=== PATIENT | female | born 1930 | race Caucasian/White ===

== ENCOUNTER 2019-05-14 13:23 | Inpatient (IN) | payer MEDICARE ==
[~2019-05-14] VITALS: Ht 162.6 cm; Wt 73.2 kg
[2019-05-14] MEDS: ASPIRIN 81 MG CHEW TABLET PO SCH (09:00)
[2019-05-14] MEDS ORDERED: METO1TAB87 PO (13:44)
[2019-05-14] MEDS ORDERED: DICL50TAB PO (13:44)
[2019-05-14] MEDS ORDERED: PRESCAP4 PO (13:44)
[2019-05-14 13:47] LABS: BASO % 0.5 % (0.0-1.0); EOS # 0.1 10^3/uL (0.0-0.50); EOS % 1.8 % (0.0-3.0); HEMATOCRIT 41.4 % (36.0-47.0); HEMOGLOBIN 14.1 g/dl (12.0-15.5); LYMPH # 0.7 10^3/uL (1.5-4.5); LYMPH % 13.3 % (24.0-44.0); MEAN CORPUSCULAR HEMOGLOBIN 29.9 pg (27.0-33.0); MEAN CORPUSCULAR HGB CONC 34.1 g/dl (32.0-36.5); MEAN CORPUSCULAR VOLUME 87.7 fl (80.0-96.0); MONO # 0.5 10^3/uL (0.0-0.8); MONO % 9.4 % (0.0-5.0); NEUTROPHILS # 4.2 10^3/uL (1.8-7.7); NEUTROPHILS % 74.8 % (36.0-66.0); PLATELET COUNT, AUTOMATED 166 10^3/uL (150-450); RED BLOOD COUNT 4.72 10^6/uL (4.00-5.40); WHITE BLOOD COUNT 5.6 10^3/uL (4.0-10.0)
[2019-05-14] MEDS ORDERED: ELIQ2.5T PO (13:47)
[2019-05-14 13:57] LABS: INR 1.08; PROTHROMBIN TIME 13.7 SECONDS (11.8-14.0)
[2019-05-14 13:58] LABS: PARTIAL THROMBOPLASTIN TIME 41.1 SECONDS (25.0-38.4)
[2019-05-14 14:13] LABS: BLOOD UREA NITROGEN 22 MG/DL (7-18); CALCIUM LEVEL 8.7 MG/DL (8.8-10.2); CARBON DIOXIDE LEVEL 26 MEQ/L (21-32); CHLORIDE LEVEL 110 MEQ/L (98-107); CK-MB VALUE MASS 4.3 NG/ML (<3.6); CPK CREATINE PHOSPHOKINASE 97 U/L (26-192); CREATININE FOR GFR 0.74 MG/DL (0.55-1.30); GLOMERULAR FILTRATION RATE > 60.0 (>32); GLUCOSE, FASTING 102 MG/DL (70-100); MB/CK RELATIVE INDEX 4.43 (< OR =4); POTASSIUM SERUM 4.3 MEQ/L (3.5-5.1); SODIUM LEVEL 144 MEQ/L (136-145); TROPONIN I < 0.02 NG/ML (< 0.10)
[2019-05-14] MEDS ORDERED: ASPIRIN 81 MG CHEW TABLET PO ONE (15:15)
[2019-05-14] MEDS ORDERED: APIXABAN 2.5 MG TAB (ELIQUIS) PO ONE (15:30)
--- NOTE | 2019-05-14 15:51 | HPEPDOC ---
General Date of Admission Date of Service: May 14, 2019 Attending Physician: ROJAS LYON DO Chief Complaint The patient is a 88-year-old female admitted with a reason for visit of S/S Of Stroke. Source: Patient, Family Exam Limitations: No limitations Timing/Duration: 4-6 hours Severity: Mild History of Present Illness Patient is 88 years old female with past medical history of atrial fibrillation currently on eliquis 2.5 mg, with history of cardiac ablation, bilateral hip yeni kevan, hypertension presented to the hospital with slurries of speech, left arm and left leg weakness. According to family member who was present in the room patient developed left leg weakness and left arm weakness with slowness of speech around 10 AM. Patient noticed that her gait was changed, her speech was slurry and she couldn't have hold a bottle of water with left hand. In ER NIH score was 5, brain CT scan was done and does not show any acute bleeding. EKG was done and showed atrial fibrillation. Patient was out of TPA window. Also she was not candidate for TPA because of anticoagulation by mouth therapy Home Medications Scheduled Apixaban (Eliquis) 2.5 Mg Tablet, 1 TAB PO BID, (Reported) Diclofenac Sodium (Diclofenac Sodium) 50 Mg Tablet.dr, 1 TAB PO BID, (Reported) Metoprolol Tartrate (Metoprolol Tartrate) 25 Mg Tablet, 1 TAB PO BID, (Reported) Vit C/Vit E AC/Lut/Copper/Zinc (Preservision Lutein Softgel) 1 Each Capsule, 1 CAP PO DAILY, (Reported) Allergies Coded Allergies: No Known Allergies (Unverified , 05/14/19) Past Medical History Medical History Hypertension, atrial fibrillation currently on eliquis 2.5 mg, ablation for atrial fibrillation 5-7 years ago Surgical History Bilateral hip replacement, left knee surgery Family History Significant Family History: No pertinent family hx Social History * Smoker: Denies Alcohol: Denies Drugs: denies Psychosocial History: No pertinent psych hx A-FIB/CHADSVASC A-FIB History Current/History of A-Fib/PAF?: Yes Current PO Anticoag Therapy: Yes Review of Systems Constitutional: Denies: Chills, Fever Eyes: Denies: Pain, Vision change ENT: Denies: Head Aches, Ear Pain Skin: Denies: Rash, Lesions, Jaundice Pulmonary: Denies: Dyspnea, Cough Cardiovascular: Denies: Chest Pain, Palpitations, Orthopnea Gastrointestinal: Denies: Nausea, Vomiting Genitourinary: Denies: Dysuria, Frequency Hematologic: Denies: Bruising, Bleeding Excessively Endocrine: Denies: Polydipsia, Polyphagia Musculoskeletal: Denies: Neck Pain, Back Pain Neurological: Reports: Weakness, Change in speech ( left arm, left leg weak ness, speech slurring) Psych: Reports: Mood Normal; Denies: Anxiety, Depression Physical Examination General Exam: Positive: Alert, Cooperative, No Acute Distress Eye Exam: Positive: PERRLA, Conjunctiva & lids normal, EOMI ENT Exam: Positive: Atraumatic Neck Exam: Positive: Supple; Negative: JVD Chest Exam: Positive: Clear to auscultation Heart Exam: Positive: Rate Normal, Regular Rhythm Telemetry: Positive: Atrial fibrillation Abdomen Exam: Positive: Normal bowel sounds Extremity Exam: Negative: Clubbing, Cyanosis Skin Exam: Positive: Nl turgor and temperature Neuro Exam: Positive: Sensation Intact; Negative: Normal Speech (leg strength 3/5, left arm 3/5, speech slurring.) Psych Exam: Positive: Mental status NL Vital Signs Vital Signs Date Time Temp Pulse Resp B/P (MAP) Pulse Ox O2 Delivery O2 Flow Rate FiO2 05/14/19 14:12 61 180/79 (112) 96 Room Air 05/14/19 13:24 98.3 20 Laboratory Data Labs 24H Laboratory Tests 2 05/14/19 13:41: Immature Granulocyte % (Auto) 0.2, White Blood Count 5.6, Red Blood Count 4.72, Hemoglobin 14.1, Hematocrit 41.4, Mean Corpuscular Volume 87.7, Mean Corpuscular Hemoglobin 29.9, Mean Corpuscular Hemoglobin Concent 34.1, Red Cell Distribution Width 13.2, Platelet Count 166, Neutrophils (%) (Auto) 74.8H, Lymphocytes (%) (Auto) 13.3L, Monocytes (%) (Auto) 9.4H, Eosinophils (%) (Auto) 1.8, Basophils (%) (Auto) 0.5, Neutrophils # (Auto) 4.2, Lymphocytes # (Auto) 0.7L, Monocytes # (Auto) 0.5, Eosinophils # (Auto) 0.1, Basophils # (Auto) 0.0, Nucleated Red Blood Cells % (auto) 0.0, Prothrombin Time 13.7, Prothromb Time International Ratio 1.08, Activated Partial Thromboplast Time 41.1H, Anion Gap 8, Glomerular Filtration Rate > 60.0, Blood Urea Nitrogen 22H, Creatinine 0.74, Sodium Level 144, Potassium Level 4.3, Chloride Level 110H, Carbon Dioxide Level 26, Calcium Level 8.7L, Total Creatine Kinase 97, Creatine Kinase MB 4.3H, Creatine Kinase MB Relative Index 4.43H, Troponin I < 0.02 05/14/19 13:56: Bedside Glucose (Misc Panel) 109 CBC/BMP Laboratory Tests 05/14/19 13:41 Red Blood Count 4.72, Mean Corpuscular Volume 87.7, Mean Corpuscular Hemoglobin 29.9, Mean Corpuscular Hemoglobin Concent 34.1, Red Cell Distribution Width 13.2, Neutrophils (%) (Auto) 74.8 H, Lymphocytes (%) (Auto) 13.3 L, Monocytes (%) (Auto) 9.4 H, Eosinophils (%) (Auto) 1.8, Basophils (%) (Auto) 0.5, N eutrophils # (Auto) 4.2, Lymphocytes # (Auto) 0.7 L, Monocytes # (Auto) 0.5, Eosinophils # (Auto) 0.1, Basophils # (Auto) 0.0, Calcium Level 8.7 L, Total Creatine Kinase 97 Assessment/Plan Patient is 88 years old female with past medical history of atrial fibrillation currently on eliquis 2.5 mg, with history of cardiac ablation, bilateral hip surgery, hypertension presented to the hospital with slurries of speech, left arm and left leg weakness. In ER NIH score was 5, brain CT scan was done and does not show any acute bleeding. EKG was done and showed atrial fibrillation. Patient was out of TPA window. Also she was not candidate for TPA because of anticoagulation by mouth therapy Problems (1) Non-hemorrhagic stroke Status: Acute Problem Text: I talked to Dr. Vee by phone, he recommended aspirin 81 mg, MRI of the brain and Doppler carotid ultrasound Lipid panel Echo Telemetry Nothing by mouth for now Speech evaluation Lipitor 40 mg PT/OT Plan / VTE VTE Prophylaxis Ordered?: Yes VTE Exclusion Mechanical Proph: Other VTE Exclusion Pharmacological: Other Plan Diet: Make NPO Activity: Continue Current Therapy: PT, OT, Speech Anticipated Discharge: Sub Acute Rehab ROJAS LYON DO May 14, 2019 15:51
[2019-05-14 16:32] LABS: CHOLESTEROL LEVEL 252 MG/DL (<200); CHOLESTEROL RISK RATIO 6.146 (<5); HDL CHOLESTEROL 41 MG/DL (>40); LDL CHOLESTEROL 152 MG/DL (<100); NON-HDL-C 211 MG/DL; TRIGLYCERIDES LEVEL 293 MG/DL (<150)
[2019-05-14] MEDS: D5W/0.9% SODIUM CHLORIDE 1,000 ML IV SCH (17:57)
--- NOTE | 2019-05-14 19:30 | ECGEPIP ---
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
--- NOTE | 2019-05-14 19:32 | ECGEPIP ---
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
[2019-05-14 20:40] VITALS: BP 162/78
[2019-05-14] MEDS: APIXABAN 2.5 MG TAB (ELIQUIS) PO SCH (21:17)
[2019-05-14] MEDS: METOPROLOL TART 25 MG TABLET PO SCH (21:18)
[2019-05-14] MEDS: ATORVASTATIN 20 MG TAB PO SCH (21:19)
[2019-05-15] MEDS: D5W/0.9% SODIUM CHLORIDE 1,000 ML IV SCH (03:01)
[2019-05-15 06:00] VITALS: BP 157/75
--- NOTE | 2019-05-15 07:43 | REP ---
Bilateral carotid artery duplex ultrasound: Peak flow velocity analysis: RIGHT LEFT ICA Peak flow velocity cm/sec 66.4 93.8 ICA Diastolic flow velocity cm/sec 16.2 18.3 ICA/CCA Ratio 0.65 1.15 ECA Peak flow velocity cm/sec 65.2 52.3 CCA Peak flow velocity cm/sec 101.6 81.8 There is no visible atheromatous plaque on the right or the left. The peak flow velocities are normal bilaterally. The There is no stenosis on the right or the left. There is antegrade flow in the vertebral arteries bilaterally. Impression: There is no stenosis on the right on the left. Electronically Signed by Adair Worthy MD 05/15/2019 07:35 A
[2019-05-15 07:46] LABS: ALBUMIN 3.2 GM/DL (3.2-5.2); ALT/SGPT 25 U/L (12-78); BILIRUBIN,TOTAL 0.6 MG/DL (0.2-1.0); BLOOD UREA NITROGEN 16 MG/DL (7-18); CALCIUM LEVEL 8.5 MG/DL (8.8-10.2); CARBON DIOXIDE LEVEL 24 MEQ/L (21-32); CHLORIDE LEVEL 114 MEQ/L (98-107); CREATININE FOR GFR 0.63 MG/DL (0.55-1.30); GLOMERULAR FILTRATION RATE > 60.0 (>32); GLUCOSE, FASTING 117 MG/DL (70-100); POTASSIUM SERUM 3.7 MEQ/L (3.5-5.1); SODIUM LEVEL 147 MEQ/L (136-145)
[2019-05-15] MEDS: ASPIRIN 81 MG CHEW TABLET PO SCH (07:57)
[2019-05-15] MEDS: METOPROLOL TART 25 MG TABLET PO SCH ×2 (07:57→22:05)
[2019-05-15] MEDS: APIXABAN 2.5 MG TAB (ELIQUIS) PO SCH ×2 (07:58→22:05)
--- NOTE | 2019-05-15 08:59 | REP ---
CT BRAIN WITHOUT CONTRAST: 05/14/2019. Clinical history: Possible stroke. Findings: Lateral ventricles are midline, symmetric and dilated in proportion to the diffuse cerebral atrophy present. Third and fourth ventricles also dilated in proportion. There is a brain cyst or old lacunar infarct in the left basal ganglia up to 8 mm. The basal ganglia were otherwise symmetric. There is no evidence of an acute vascular territory infarct, hemorrhage, mass, mass effect, edema or extra-axial fluid collection. Some heterogeneous low attenuation white matter change suggests chronic small vessel ischemic disease. Brainstem intact. Cerebellum with some mild atrophy without mass. No posterior fossa bleed. The mastoids and sinuses were intact. Basal cisterns were intact. Skull base and calvarium are without fracture or focal lesion. Impression: 1. Ventriculomegaly in proportionate to atrophy. 8 mm brain cyst or old lacunar infarct in the left basal ganglia. No acute infarct, hemorrhage, mass, mass effect or edema. No extra-axial fluid collection. 2. No cerebellar mass or infarct. Atrophy is fairly symmetric. 3. Basal cisterns, mastoids, sinuses, skull base and calvarium all unremarkable. Electronically Signed by Alan Stapleton MD 05/15/2019 09:19 A
--- NOTE | 2019-05-15 09:09 | REP ---
AP PORTABLE CHEST: 05/14/2019. Clinical history: CVA. Findings: No prior study. The patient's mandible obscures the portion of the left apex. Lungs are otherwise adequately inflated and without infiltrate. The heart is borderline size, it does have left atrial enlargement. There is a tortuous calcified aorta. No gross edema or definite infiltrate. A dextrorotatory scoliosis of the lower thoracic and upper lumbar spine. Bones demineralized. Impression: 1. Some underlying interstitial changes suspected with borderline heart size with left atrial enlargement but no ryan edema, effusion or dense consolidation. Electronically Signed by Alan Stapleton MD 05/15/2019 09:20 A
[2019-05-15] MEDS ORDERED: ACETAMINOPHEN TAB 650MG DOSE (2X325MG) PO PRN (12:45)
[2019-05-15 14:00] VITALS: BP 180/79
--- NOTE | 2019-05-15 14:13 | REPVR ---
EXAM: MR Head Without Contrast EXAM DATE/TIME: 05/15/2019 11:24 AM CLINICAL HISTORY: 88 years old, female; Abnormal radiologic findings of head/skull; Ischemic stroke TECHNIQUE: Imaging protocol: MR of the head without contrast. COMPARISON: CT Head without contrast 05/14/2019 1:28 PM FINDINGS: Brain: Diffusion restriction in the deep white matter of the right external capsule and guan radiata indicates a recent ischemic infarct. It is 0.8 x 2.4 x 1.7 cm (transverse x AP x craniocaudal) (series 304 image 1 frames 17-20). There is no susceptibility artifact to indicate parenchymal calcification or blood product. A cyst in the inferior aspect of the left basal ganglia it is 9 x 7 x 8 mm. 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 Mild hypodensities in the cerebral white matter are consistent with chronic small vessel ischemic disease. The [place] appears intact. No extra-axial fluid collections. Midline shift: No mass effect or midline shift. Ventricles: Moderate cortical atrophy with proportionate dilatation of the ventricles is appropriate for 88 years of age. Bones/joints: The calvarium is unremarkable. Soft tissues: Normal. Sinuses: 1.3 cm convex soft tissue mass in the left maxillary sinus is consistent with a retention cyst or polyp. Paranasal sinuses are otherwise clear. Mastoid air cells: No significant mastoid disease. Orbits: Normal. The orbital contents are unremarkable. Vertebral arteries: Dominant right vertebral artery. IMPRESSION: 1. Diffusion restriction in the deep white matter of the right external capsule and guan radiata indicates a recent ischemic infarct. It is 0.8 x 2.4 x 1.7 cm (transverse x AP x craniocaudal) (series 304, image 1, frames 17-20). 2. A cyst in the inferior aspect of the left basal ganglia it is 9 x 7 x 8 mm. 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 3. Mild microvascular ischemic disease. 4. Moderate age-appropriate global brain atrophy. Electronically signed by: Andi Pittman On 05/15/2019 14:12:50 PM
--- NOTE | 2019-05-15 14:48 | REP ---
REASON FOR EXAM: Pain after trauma. COMPARISON: None. There is a total hip prosthetic device in place the femoral and acetabular components are near anatomically aligned. There is no evidence of an acute fracture, dislocation, or subluxation. No abnormal periprosthetic lucencies are noted. IMPRESSION: No evidence of acute disease. Electronically Signed by David Mello DO 05/15/2019 04:39 P
--- NOTE | 2019-05-15 21:10 | IPNPDOC ---
Text Note Date of Service The patient was seen on 05/15/19. NOTE Subjective: No any acute events overnight. Patient complains of left hip pain. Speech improved. Patient denies fever, chills, nausea, vomiting, diarrhea Objective: General Exam: Positive: Alert, Cooperative, No Acute Distress Eye Exam: Positive: PERRLA, Conjunctiva & lids normal, EOMI ENT Exam: Positive: Atraumatic Neck Exam: Positive: Supple; Negative: JVD Chest Exam: Positive: Clear to auscultation Heart Exam: Positive: Rate Normal, Regular Rhythm Telemetry: Positive: Atrial fibrillation Abdomen Exam: Positive: Normal bowel sounds Extremity Exam: Negative: Clubbing, Cyanosis Skin Exam: Positive: Nl turgor and temperature Neuro Exam: Positive: Sensation Intact; Negative: leg strength 3/5, left arm 3/5 Psych Exam: Positive: Mental status NL Imaging study EXAM: MR Head Without Contrast EXAM DATE/TIME: 05/15/2019 11:24 AM CLINICAL HISTORY: 88 years old, female; Abnormal radiologic findings of head/skull; Ischemic stroke TECHNIQUE: Imaging protocol: MR of the head without contrast. COMPARISON: CT Head without contrast 05/14/2019 1:28 PM FINDINGS: Brain: Diffusion restriction in the deep white matter of the right external capsule and guan radiata indicates a recent ischemic infarct. It is 0.8 x 2.4 x 1.7 cm (transverse x AP x craniocaudal) (series 304 image 1 frames 17-20). There is no susceptibility artifact to indicate parenchymal calcification or blood product. A cyst in the inferior aspect of the left basal ganglia it is 9 x 7 x 8 mm. 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 Mild hypodensities in the cerebral white matter are consistent with chronic small vessel ischemic disease. The [place] appears intact. No extra-axial fluid collections. Midline shift: No mass effect or midline shift. Ventricles: Moderate cortical atrophy with proportionate dilatation of the ventricles is appropriate for 88 years of age. Bones/joints: The calvarium is unremarkable. Soft tissues: Normal. Sinuses: 1.3 cm convex soft tissue mass in the left maxillary sinus is consistent with a retention cyst or polyp. Paranasal sinuses are otherwise clear. Mastoid air cells: No significant mastoid disease. Orbits: Normal. The orbital contents are unremarkable. Vertebral arteries: Dominant right vertebral artery. IMPRESSION: 1. Diffusion restriction in the deep white matter of the right external capsule and guan radiata indicates a recent ischemic infarct. It is 0.8 x 2.4 x 1.7 cm (transverse x AP x craniocaudal) (series 304, image 1, frames 17-20). 2. A cyst in the inferior aspect of the left basal ganglia it is 9 x 7 x 8 mm. 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 3. Mild microvascular ischemic disease. 4. Moderate age-appropriate global brain atrophy. Electronically signed by: Andi Pittman On 05/15/2019 14:12:50 PM Assessment/Plan Patient is 88 years old female with past medical history of atrial fibrillation currently on eliquis 2.5 mg, with history of cardiac ablation, bilateral hip miramontes rgery, hypertension presented to the hospital with slurries of speech, left arm and left leg weakness. In ER NIH score was 5, brain CT scan was done and does not show any acute bleeding. EKG was done and showed atrial fibrillation. Patient was out of TPA window. Also she was not candidate for TPA because of anticoagulation by mouth therapy. Brain MRI showed diffusion restriction in the deep white matter of the right external capsule and guan radiata indicates a recent ischemic infarct. It is 0.8 x 2.4 x 1.7 cm (transverse x AP x craniocaudal) (series 304, image 1, frames 17-20). Problems (1) Non-hemorrhagic stroke Status: Acute Imaging studies see above Echo pending Telemetry Diet upgraded Lipitor 40 mg PT/OT 2 atrial fibrillation Anterior anticoagulation with eliquis 3 left hip pain Left hip x-ray was done and was negative for fracture and dislocation Plan / VTE VTE Prophylaxis Ordered?: Yes VS,Fishbone, I+O VS, Fishbone, I+O Laboratory Tests 05/15/19 06:42 Calcium Level 8.5 L, Aspartate Amino Transf (AST/SGOT) 16, Alanine Am inotransferase (ALT/SGPT) 25, Alkaline Phosphatase 90, Total Bilirubin 0.6, Total Protein 6.0 L, Albumin 3.2 Vital Signs Date Time Temp Pulse Resp B/P (MAP) Pulse Ox O2 Delivery O2 Flow Rate FiO2 05/15/19 14:00 97.8 61 18 180/79 (112) 97 8/18/19 19:00 Room Air I&O- Last 24 Hours up to 6 AM 05/15/19 06:00 Intake Total 400 ml Balance 400 ml ROJAS LYON DO May 15, 2019 21:10
[2019-05-15 22:00] VITALS: BP 142/78
[2019-05-15] MEDS: ATORVASTATIN 20 MG TAB PO SCH (22:05)
--- NOTE | 2019-05-16 00:08 | ECHO ---
DATE OF PROCEDURE: 05/15/2019 Date of : 1930 REFERRING PHYSICIAN: Dr. Maury Babb INDICATION: Acute stroke. HEIGHT: 165 cm WEIGHT: 73 kg 2D MEASUREMENTS: Left atrium: 4.1 cm Left atrial volume index: 46 Aortic root: 2.9 cm Ventricular septum: 1.74 cm Posterior wall: 1.71 cm Left ventricle diastole: 3.2 cm LVOT: 2.1 cm Inferior vena cava: 2.7 cm with more than 50% respiratory variation. DOPPLER MEASUREMENTS: Very mild aortic regurgitation. Aortic valve velocity: 105 cm/s LVOT velocity: 65.4 cm/s Mild mitral regurgitation. Moderate tricuspid regurgitation Estimated right ventricle systolic pressure: 43 mmHg assuming a right atrial pressure of 10 mmHg. Mild pulmonic regurgitation. DESCRIPTION: Rhythm was atrial fibrillation with controlled ventricular response. Image quality was adequate. This was a 2D, M-mode, color flow Doppler and pulse wave Doppler examination and included mitral annular tissue Doppler. CONCLUSIONS: 1. Moderately-severe concentric left ventricle hypertrophy. Normal regional left ventricular (LV) wall motion and wall thickening. Normal LV systolic function. Left ventricular ejection fraction (LVEF) 65% by visual estimate. Unable to adequately assess LV diastolic function in the setting of atrial fibrillation. 2. Severe left atrial dilatation by left atrial volume index. 3. Mild aortic valve sclerosis of a 3-cusp aortic valve. Very mild aortic regurgitation. 4. Mild mitral annular calcification with mild mitral regurgitation. 5. Suggestive of moderate elevation of estimated right ventricle systolic pressure. Normal right ventricle size and systolic function. Normal right atrial size by visual assessment. Normal respiratory variation of inferior vena cava suggestive of central venous pressure in the range of 5-10 mmHg. No pericardial effusion.
--- NOTE | 2019-05-16 00:30 | CR ---
DATE OF CONSULTATION: 05/15/2019 REFERRING PHYSICIAN: Dr. Maury Babb REASON FOR CONSULTATION: Acute stroke. HISTORY OF PRESENT ILLNESS: Glenys Quintero is an 88-year-old woman with a history of atrial fibrillation - on Eliquis, with a history of cardiac ablation, bilateral hip surgery, hypertension who lives in [place] and has a summer home in this region. She was brought to [facility] due to slurred speech, left arm and leg weakness and difficulty walking. The patient developed slurred speech, left leg/arm weakness in the morning. She did not seek medical attention until late in the evening. Her National Institutes of Health (NIH) stroke scale was 5. The patient was not a candidate for TPA as the patient had been actively taking Eliquis and did not seek medical attention for 4-6 hours and likely longer. The patient denies any headaches, neck pain, back pain, diplopia, urinary incontinence, falls or loss of consciousness. CT scan of her head was reportedly unremarkable at the time of admission. DIAGNOSTIC STUDIES: MRI scan of brain was reviewed and showed right guan radiata acute ischemic stroke. Carotid ultrasound was within normal limits. Her LDL was 152 and total cholesterol was 252 with HDL 51. CURRENT MEDICATIONS: Eliquis 2.5 mg by mouth twice a day, metoprolol 25 mg by mouth twice a day, multivitamin. Aspirin 81 mg by mouth daily and Lipitor 40 mg by mouth daily was added after admission. ALLERGIES: None. FAMILY HISTORY: No family history of stroke or coronary artery disease. SOCIAL HISTORY: She denies smoking, alcohol or illicit drugs. PAST MEDICAL HISTORY: Hypertension, atrial fibrillation, history of cardiac ablation, bilateral hip replacement, left knee surgery. REVIEW OF SYSTEMS: All systems were reviewed and found to be noncontributory except as mentioned in history of present illness. PHYSICAL EXAMINATION: Blood pressure 172/87, temperature 97.3, pulse 72, respiratory rate 18. Heart: Irregularly irregular. Lungs: Clear to auscultation. Abdomen: Soft, nontender, nondistended. No pedal edema. No musculoskeletal abnormalities. No rash. No signs of meningeal irritation. No dysmetria. No tremor. The patient is awake, alert, oriented to place, person and time. Normal speech, comprehension and repetition. Extraocular muscles are intact. No facial weakness. She has right eye exotropia. No facial weakness. Tongue and uvula are midline. 3+/5 strength in left arm and leg. Left plantar is upgoing. Right-sided strength is 5/5. Deep tendon reflexes are 2+ throughout. She has decreased cold and pinprick vibration sensation on left arm and leg. Gait could not be tested. She has mild left-sided dysmetria. ASSESSMENT: 1. Right guan radiata and external capsule acute ischemic stroke. 2. Atrial fibrillation. 3. Dyslipidemia. 4. Hypertension. PLAN: 1. Echocardiogram. 2. Lipitor 40 mg by mouth daily and aspirin 81 mg by mouth daily. 3. Avoid any other nonsteroidal anti-inflammatory drugs (NSAIDS). 4. Eliquis 2.5 mg by mouth twice a day. 5. Physical, occupational therapy and rehabilitation. 6. Keep blood pressure below 180/100 in acute-subacute settings of her stroke. Long-term goal of blood pressure management should be below 130/80. 7. Patient will follow with her primary care physician and public records officer. The patient is originally from [place].
[2019-05-16 06:00] VITALS: BP 155/75
[2019-05-16] MEDS: APIXABAN 2.5 MG TAB (ELIQUIS) PO SCH ×2 (08:34→21:33)
[2019-05-16] MEDS: ASPIRIN 81 MG CHEW TABLET PO SCH (08:34)
[2019-05-16] MEDS: METOPROLOL TART 25 MG TABLET PO SCH ×2 (08:34→21:33)
[2019-05-16 14:00] VITALS: BP 163/81
--- NOTE | 2019-05-16 15:19 | IPNPDOC ---
Text Note Date of Service The patient was seen on 05/16/19. NOTE Subjective: No any acute events overnight. Speech has been improved. Patient has unbalanced walking, she needs assisted ambulation and walker. Patient noticed reddish stool today Patient denies fever, chills, nausea, vomiting, diarrhea Objective: General Exam: Positive: Alert, Cooperative, No Acute Distress Eye Exam: Positive: PERRLA, Conjunctiva & lids normal, EOMI ENT Exam: Positive: Atraumatic Neck Exam: Positive: Supple; Negative: JVD Chest Exam: Positive: Clear to auscultation Heart Exam: Positive: Rate Normal, Regular Rhythm Telemetry: Positive: Atrial fibrillation Abdomen Exam: Positive: Normal bowel sounds Extremity Exam: Negative: Clubbing, Cyanosis Skin Exam: Positive: Nl turgor and temperature Neuro Exam: Positive: Sensation Intact; Negative: leg strength 3/5, left arm 3/5 Psych Exam: Positive: Mental status NL Echo 1. Moderately-severe concentric left ventricle hypertrophy. Normal regional left ventricular (LV) wall motion and wall thickening. Normal LV systolic function. Left ventricular ejection fraction (LVEF) 65% by visual estimate. Unable to adequately assess LV diastolic function in the setting of atrial fibrillation. 2. Severe left atrial dilatation by left atrial volume index. 3. Mild aortic valve sclerosis of a 3-cusp aortic valve. Very mild aortic regurgitation. 4. Mild mitral annular calcification with mild mitral regurgitation. 5. Suggestive of moderate elevation of estimated right ventricle systolic pressure. Normal right ventricle size and systolic function. Normal right atrial size by visual assessment. Normal respiratory variation of inferior vena cava suggestive of central venous pressure in the range of 5-10 mmHg. Assessment/Plan Patient is 88 years old female with past medical history of atrial fibrillation currently on eliquis 2.5 mg, with history of cardiac ablation, bilateral hip surgery, hypertension presented to the hospital with slurries of speech, left arm and left leg weakness. In ER NIH score was 5, brain CT scan was done and does not show any acute bleeding. EKG was done and showed atrial fibrillation. Patient was out of TPA window. Also she was not candidate for TPA because of anticoagulation by mouth therapy. Brain MRI showed diffusion restriction in the deep white matter of the right external capsule and guan radiata indicates a recent ischemic infarct. It is 0.8 x 2.4 x 1.7 cm (transverse x AP x craniocaudal) (series 304, image 1, frames 17-20). Patient received treatment with statin, aspirin. Await placement to ARF. She is from [place] Problems (1) Non-hemorrhagic stroke Status: Acute Imaging studies see above Echo see above Telemetry Diet upgraded Lipitor 40 mg PT/OT Await placement to ARF 2 atrial fibrillation anticoagulation with eliquis 3 left hip pain Left hip x-ray was done and was negative for fracture and dislocation Stool for occult blood Plan / VTE VTE Prophylaxis Ordered?: Yes VS,Fishbone, I+O VS, Fishbone, I+O Vital Signs Date Time Temp Pulse Resp B/P (MAP) Pulse Ox O2 Delivery O2 Flow Rate FiO2 05/16/19 08:34 78 156/84 05/16/19 06:00 97.2 17 97 05/14/19 19:00 Room Air I&O- Last 24 Hours up to 6 AM 05/16/19 06:00 Intake Total 0 ml Balance 0 ml ORJAS LYON DO May 16, 2019 15:19
[2019-05-16] MEDS: ATORVASTATIN 20 MG TAB PO SCH (21:32)
[2019-05-16 22:00] VITALS: BP 142/72
[2019-05-17 06:00] VITALS: BP 140/80
[2019-05-17] MEDS: ASPIRIN 81 MG CHEW TABLET PO SCH (10:39)
[2019-05-17] MEDS: APIXABAN 2.5 MG TAB (ELIQUIS) PO SCH ×2 (10:39→22:40)
[2019-05-17] MEDS: METOPROLOL TART 25 MG TABLET PO SCH ×2 (10:39→22:41)
--- NOTE | 2019-05-17 13:07 | IPNPDOC ---
Subjective Date Seen The patient was seen on 05/17/19. Subjective Chief Complaint/HPI Patient is comfortable in no distress. Her daughter is at bedside. She patient offers no new complaints at the present General: Denies: ROS Unobtainable, Chills, Night Sweats, Fatigue, Malaise, Normal Appetite, Other Symptoms Constitutional: Denies: Chills, Fever, Malaise, Night Sweats, Weakness, Fatigue, Weight Loss, Lethargy, Other Eyes: Denies: Pain, Vision change, Conjunctivae inflammation, Eyelid inflammation, Redness, Other ENT: Denies: Head Aches, Ear Pain, Dysphagia, Sinus Congestion, Post Nasal Drip, Sore Throat, Epistaxis, Other Symptoms Skin: Denies: Rash, Lesions, Jaundice, Bruising, Itching, Dry, Breakdown, Nail Changes, Other Pulmonary: Denies: Dyspnea, Cough, Pleuritic Chest Pain, Other Symptoms Cardiovascular: Denies: Chest Pain, Palpitations, Orthopnea, Paroxysmal Noc. Dyspnea, Edema, Lt Headedness, Other Symptoms Gastrointestinal: Denies: Nausea, Vomiting, Abdominal Pain, Diarrhea, Constipation, Melena, Hematochezia, Other Symptoms Neurological: Reports: Weakness (. Left-sided weakness); Denies: Numbness, Incoordination, Change in speech, Confusion, Seizures, Other Symptoms Psych: Denies: Mood Normal, Anxiety, Depression, Memory Issues, Thoughts of Self Harm, Anger, Thoughts of Harming Other, Other Psych Objective Physical Examination General Exam: Positive: Alert, Cooperative, No Acute Distress Eye Exam: Positive: PERRLA, Conjunctiva & lids normal, EOMI ENT Exam: Positive: Atraumatic Neck Exam: Positive: Supple; Negative: JVD Chest Exam: Positive: Clear to auscultation Heart Exam: Positive: Rate Normal, Regular Rhythm Telemetry: Positive: Atrial fibrillation Abdomen Exam: Positive: Normal bowel sounds Extremity Exam: Negative: Clubbing, Cyanosis Skin Exam: Positive: Nl turgor and temperature Neuro Exam: Positive: Sensation Intact, Other (, 3/5 strength left upper and lower extremity); Negative: Normal Speech (leg strength 3/5, left arm 3/5, speech slurring.) Psych Exam: Positive: Mental status NL Assessment /Plan Problems (1) Ischemic stroke Status: Acute (2) Atrial fibrillation Status: Chronic Plan/VTE VTE Prophylaxis Ordered?: Yes VTE Exclusion Mechanical Proph: Other VTE Exclusion Pharmacological: Other Plan Diet: Make NPO Activity: Continue Current Therapy: PT, OT, Speech Anticipated Discharge: Sub Acute Rehab Right external capsule and guan radiate of ischemic stroke With left-sided hemiplegia Status: Acute Imaging studies see below Echo : 1. Moderately-severe concentric left ventricle hypertrophy. Normal regional left ventricular (LV) wall motion and wall thickening. Normal LV systolic function. Left ventricular ejection fraction (LVEF) 65% by visual estimate. Unable to adequately assess LV diastolic function in the setting of atrial fibrillation. 2. Severe left atrial dilatation by left atrial volume index. 3. Mild aortic valve sclerosis of a 3-cusp aortic valve. Very mild aortic regurgitation. 4. Mild mitral annular calcification with mild mitral regurgitation. 5. Suggestive of moderate elevation of estimated right ventricle systolic pressure. Normal right ventricle size and systolic function. Normal right atrial size by visual assessment. Normal respiratory variation of inferior vena cava suggestive of central venous pressure in the range of 5-10 mmHg. MRI Brain : 1. Diffusion restriction in the deep white matter of the right external capsule and guan radiata indicates a recent ischemic infarct. It is 0.8 x 2.4 x 1.7 cm (transverse x AP x craniocaudal) (series 304, image 1, frames 17-20). 2. A cyst in the inferior aspect of the left basal ganglia it is 9 x 7 x 8 mm. 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 3. Mild microvascular ischemic disease. 4. Moderate age-appropriate global brain atrophy. Diet upgraded Lipitor 40 mg PT/OT evaluation Discussed with patient and the daughter at bedside. Patient will be transferred to acute rehabilitation facility as patient is willing to participate and rehabilitation. 2 atrial fibrillation Rate is under control anticoagulation with eliquis 3 left hip pain Left hip x-ray was done and was negative for fracture and dislocation VS, I&O, 24H, Fishbone Vital Signs/I&O Vital Signs Date Time Temp Pulse Resp B/P (MAP) Pulse Ox O2 Delivery O2 Flow Rate FiO2 05/17/19 10:39 71 140/80 05/17/19 06:00 98.9 15 100 05/14/19 19:00 Room Air I&O- Last 24 Hours up to 6 AM 05/17/19 06:00 Intake Total 330 ml Balance 330 ml ROBERTO MENSAH MD May 17, 2019 13:07
[2019-05-17 14:00] VITALS: BP 149/61
[2019-05-17 22:00] VITALS: BP 143/81
[2019-05-17] MEDS: ATORVASTATIN 20 MG TAB PO SCH (22:40)
[2019-05-17 22:41] VITALS: BP 143/81
[2019-05-18 06:00] VITALS: BP 150/73
[2019-05-18] MEDS: ASPIRIN 81 MG CHEW TABLET PO SCH (10:18)
[2019-05-18] MEDS: APIXABAN 2.5 MG TAB (ELIQUIS) PO SCH (10:19)
[2019-05-18] MEDS: METOPROLOL TART 25 MG TABLET PO SCH (10:19)
[2019-05-18] MEDS ORDERED: ATOR1TAB21 PO (13:51)
[2019-05-18] MEDS ORDERED: ASPI81CH8 PO (13:51)
[2019-05-18 14:00] VITALS: BP 146/70
--- NOTE | 2019-05-18 14:16 | DS.PDOC ---
Discharge Summary General Date of Admission May 14, 2019 at 15:09 Date of Discharge May 18 2019 Discharge Summary PROCEDURES PERFORMED DURING STAY: ECHO MRI Brain ADMITTING DIAGNOSES: 1. right external capsule and guan radiata CVA 2. Atrial fibrillation 3. HL DISCHARGE DIAGNOSES: 1. right external capsule and guan radiata CVA 2. Atrial fibrillation 3. HL COMPLICATIONS/CHIEF COMPLAINT: Non Hemorrhagic Stroke. HISTORY OF PRESENT ILLNESS: Patient is 88 years old female with past medical history of atrial fibrillation currently on eliquis 2.5 mg, with history of cardiac ablation, bilateral hip surgery, hypertension presented to the hospital with slurries of speech, left arm and left leg weakness. According to family member who was present in the room patient developed left leg weakness and left arm weakness with slowness of speech around 10 AM. Patient noticed that her gait was changed, her speech was slurry and she couldn't have hold a bottle of water with left hand. In ER NIH score was 5, brain CT scan was done and does not show any acute bleeding. EKG was done and showed atrial fibrillation. Patient was out of TPA window. Also she was not candidate for TPA because of anticoagulation by mouth therapy HOSPITAL COURSE: #right external capsule and guan radiata indicates a recent ischemic infarct with left hemiplegia appreciate Neuro consult MRI reviewed eliquis + ASA Pt/ot/speech on pureed diet ECHO reviewed #Afib rate controlled anticoagulation with eliquis #left hip pain Left hip x-ray was done and was negative for fracture and dislocation DISCHARGE MEDICATIONS: Please see below. ALLERGIES: Please see below. PHYSICAL EXAMINATION ON DISCHARGE: VITAL SIGNS: Please see below. GENERAL: NAD EXTREMITIES: no c/c/e SKIN: intact NEUROLOGICAL EXAMINATION: Left hemiparesis LABORATORY DATA: Please see below. PROGNOSIS: fair ACTIVITY: As tolerated DIET: pureed DISCHARGE PLAN: rehab DISPOSITION: rehab DISCHARGE INSTRUCTIONS: 1. 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 Vital Signs/I&Os Vital Signs Date Time Temp Pulse Resp B/P (MAP) Pulse Ox O2 Delivery O2 Flow Rate FiO2 05/18/19 06:00 98.7 74 16 150/73 (98) 96 05/14/19 19:00 Room Air I&O- Last 24 Hours up to 6 AM 05/18/19 06:00 Intake Total 560 ml Output Total 0 ml Balance 560 ml Discharge Medications Scheduled Apixaban (Eliquis) 2.5 Mg Tablet, 2.5 MG PO BID, (Reported) Aspirin (Children's Aspirin) 81 Mg Tab.chew, 81 MG PO DAILY Atorvastatin Calcium (Atorvastatin Calcium) 20 Mg Tablet, 40 MG PO QHS Diclofenac Sodium (Diclofenac Sodium) 50 Mg Tablet.dr, 50 MG PO BID, (Reported) Metoprolol Tartrate (Metoprolol Tartrate) 25 Mg Tablet, 25 MG PO BID, (Reported) Vit C/Vit E AC/Lut/Copper/Zinc (Preservision Lutein Softgel) 1 Each Capsule, 1 CAP PO DAILY, (Reported) Allergies Coded Allergies: No Known Allergies (Unverified , 05/14/19) JORDY POE MD May 18, 2019 14:16
== END 2019-05-18 15:10 | DRG 65 ==
LOC: M ED 13:23 → M ED INP 15:09 → M MSPAV 20:35
PROVIDERS: ADMIT Internal Medicine; ATTEND Internal Medicine
DX: I63.59 Cerebral infarction due to unspecified occlusion or stenosis of other cerebral artery (principal); G81.92 Hemiplegia, unspecified affecting left dominant side; I10 Essential (primary) hypertension; I48.91 Unspecified atrial fibrillation; Z96.643 Presence of artificial hip joint, bilateral; Z79.01 Long term (current) use of anticoagulants; Z79.899 Other long term (current) drug therapy; M25.552 Pain in left hip; R26.2 Difficulty in walking, not elsewhere classified; R47.81 Slurred speech

== ENCOUNTER 2019-05-18 09:15 | Inpatient (IN) | payer MEDICARE ==
[~2019-05-18] VITALS: Ht 162.6 cm; Wt 68.4 kg
[~2019-05-18 09:15] MED LIST: DICL50TAB PO; ELIQ2.5T PO; METO1TAB87 PO; PRESCAP4 PO
[2019-05-18] MEDS ORDERED: MOM 30ML SUSPENSION UDC PO PRN (13:45)
[2019-05-18] MEDS ORDERED: ACETAMINOPHEN TAB 650MG DOSE (2X325MG) PO PRN (13:45)
[2019-05-18] MEDS ORDERED: traZODone 25MG PER 1/2 TABLET PO PRN (13:45)
[2019-05-18] MEDS ORDERED: BISACODYL 10 MG SUPP PR PRN (13:45)
[2019-05-18] MEDS ORDERED: ASPI81CH8 PO (13:51)
[2019-05-18] MEDS ORDERED: ATOR1TAB21 PO (13:51)
--- NOTE | 2019-05-18 14:02 | HPEPDOC ---
Travelers' Aid Worker Note DATE OF ADMISSION: 05/18/19 SOURCE OF ADMISSION INFORMATION: [facility] records and patient CHIEF COMPLAINT: stroke HISTORY OF PRESENT ILLNESS: 88F pmh Afib on eliquis s/p ablation, HLD, HTN who presented to [facility] ED on 05/15/19 complaining of left sided weakness and was not a candidate for TPA. CTH showed, Ventriculomegaly in proportionate to atrophy. 8 mm brain cyst or old lacunar infarct in the left basal ganglia. No acute infarct, hemorrhage, mass, mass effect or edema. No extra-axial fluid collectionNo cerebellar mass or infarct. Atrophy is fairly symmetric. MRI showed, Diffusion restriction in the deep white matter of the right external capsule and guan radiata indicates a recent ischemic infarct. She was evaluated by neurology who recommended her regimen of Eliquis and statin therapy for elevated LDLs and good BP management for secondary prevention. ECHO was done showing, Moderately-severe concentric left ventricle hypertrophy. Normal regional left ventricular (LV) wall motion and wall thickening. Normal LV systolic function. Left ventricular ejection fraction (LVEF) 65% by visual estimate. Unable to adequately assess LV diastolic function in the setting of atrial fibrillation. She was found to have signif icant dysphagia and difficulty with mobility and ADL management when evaluated by therapy and deemed an appropriate candidate for ARU admission on 05/18/19. REVIEW OF SYSTEMS: The following is a completed review of systems and has been reviewed. Review of systems otherwise unremarkable. PAIN: Patient self reports left wrist pain and left knee pain EYES: No recent vision changes EARS, NOSE, & THROAT:+dysphagia CARDIOVASCULAR: Denies chest pain or palpitations PULMONARY: Denies shortness of breath GASTROINTESTINAL: +loose stools GENITOURINARY: denies dysuria MUSCULOSKELETAL: left knee and wrist pain NEUROLOGICAL:LUE and LLE paresis SKIN: no rash PSYCHIATRIC: Unremarkable All other review of systems found to be negative. PAST MEDICAL HISTORY: as per HPI PAST SURGICAL HISTORY: bilateral hip surgery, right knee surgery ALLERGIES: Please see below. MEDICATIONS: Please see below. 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 GENERAL: Pleasant and cooperative. No acute distress. HEENT: PERRL. Extraocular movements intact. Clear conjunctiva, no facial droop CARDIOVASCULAR:Irregular rate and rhythm. No murmurs, rubs, or gallops LUNGS: Clear to auscultation bilaterally. No wheezes. No rhonchi ABDOMEN: Soft, nontender, nondistended. Positive bowel sounds. Normal active bowel sounds NEUROLOGICAL: Alert and oriented times three, able to give detailed story Cranial nerves II through XII grossly intact. Sensation grossly intact in all 4 limbs (-) babinki bilat EXTREMITIES: 5\5 strength right upper extremities. 3+/5 LUE, 3+/5 LLE, 5\5 strength right lower extremity. (-) pain on internal rotation bilat hips (+) warmth and effusion with TTP medial and lateral joint line left knee (+) warmth, swelling, erytham left wrist, no decreased ROM, however TTP SKIN: warm and well perfused LABORATORY DATA: Please see below. IMAGING: Imaging documentation personally reviewed by record FUNCTIONAL STATUS: Premorbid: Independent with all activities of daily life as well as mobility On Admission: Mod-assist for functional transfers, total assist for lower body dressing, Mod assist ambulation x 9 feet GOALS: Mod-I household distances with RW, supervision stairs, bathing, dressing, Mod-I toileting, medical optimization, caregiver training. ASSESSMENT:88-year-old F with past medical history of afib who presents status post right internal capsule and guan radiata infarct. PLAN: 1. 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 Neuro: s/p right guan radiata/internal capsule stroke with left sided paresis and dysphagia- c/u eliquis and beta-rajesh for Afib management, c/u statin and good BP control for secondary stroke prevention -Prozac for motor recovery 3. Cardio: pmh Afib and HTN on elquis and beta-rajesh, medicine consulted to assist in management -HLD- statin 4. Resp: encourage incentive spirometry 5. : monitor PVRS 6. DVT ppx: teds and eliquis 7. GI ppx: protonix 8. Ortho: left knee effusion and left wrist swelling, will obtain Xray to r/o fracture, in the meantime will treat with lidoderm patches and ice 8. Dispo: tbd POST ADMISSION PHYSICIAN EVALUATION: Medical and functional status: Description of medical status, medical assessment: As above. Rehabilitation diagnosis and current and prior cold morbid medical conditions as above. Risk of complications and plans to mitigate them as above. Description of functional status current status is as above. Prior status as above. Status compared to preadmission: There are no clinically significant differences between the patient's current status and the information described on the preadmission screening document. Treatment plan anticipated: Treatment plan is as described above. Required disciplines including physical therapy, occupational therapy, others as noted above Intensity of services: 3 hours a day, 6 days a week. Special considerations: There are no specific special or safety considerations that would likely preclude immediate implementation of an intensive rehabilitation program or subsequently influence the plan of care ATTESTATION: Considering all the information above, it is my best judgment that this patient requires intensive rehabilitation therapy as described above and an inpatient hospital environment due to the complexity of nursing, medical, and rehabilitation needs required by the patient. Furthermore, this patient can reasonably be expected to participate in an benefit from an inpatient rehabili tation stay with an interdisciplinary team approach to the delivery of rehabilitation care under the direction and supervision of rehabilitation physician. PROGNOSIS: Good ESTIMATED LENGTH OF STAY:21-24 days. PROJECTED DISCHARGE DESTINATION: Home with family support and any durable medical equipment required to increase functional safety and mobility TIME SPENT COUNSELING AND COORDINATING INITIAL CARE: Greater than 70 minutes. Vital Signs Vital Signs Date Time Temp Pulse Resp B/P (MAP) Pulse Ox O2 Delivery O2 Flow Rate FiO2 05/18/19 15:20 98.7 62 18 160/78 (105) 95 Home Medications Scheduled Apixaban (Eliquis) 2.5 Mg Tablet, 2.5 MG PO BID, (Reported) Aspirin (Children's Aspirin) 81 Mg Tab.chew, 81 MG PO DAILY Atorvastatin Calcium (Atorvastatin Calcium) 20 Mg Tablet, 40 MG PO QHS Diclofenac Sodium (Diclofenac Sodium) 50 Mg Tablet.dr, 50 MG PO BID, (Reported) Metoprolol Tartrate (Metoprolol Tartrate) 25 Mg Tablet, 25 MG PO BID, (Reported) Vit C/Vit E AC/Lut/Copper/Zinc (Preservision Lutein Softgel) 1 Each Capsule, 1 CAP PO DAILY, (Reported) Allergies Coded Allergies: No Known Allergies (Unverified , 05/14/19) A-FIB/CHADSVASC A-FIB History Current/History of A-Fib/PAF?: Yes Current PO Anticoag Therapy: Yes PAULA JOHNSON MD May 18, 2019 14:02
[2019-05-18 15:20] VITALS: BP 160/78
[2019-05-18 20:00] VITALS: BP 150/75
[2019-05-18] MEDS: SENNA 8.6 MG TAB (SENOKOT) PO SCH (20:40)
[2019-05-18] MEDS: APIXABAN 2.5 MG TAB (ELIQUIS) PO SCH (20:40)
[2019-05-18] MEDS: DOCUSATE SODIUM 100 MG CAP PO SCH (20:40)
[2019-05-18] MEDS: METOPROLOL TART 25 MG TABLET PO SCH (20:40)
[2019-05-18] MEDS: ATORVASTATIN 20 MG TAB PO SCH (20:41)
[2019-05-19 06:00] VITALS: BP 160/76
[2019-05-19 07:40] LABS: BASO % 0.6 % (0.0-1.0); EOS # 0.4 10^3/uL (0.0-0.50); EOS % 5.6 % (0.0-3.0); HEMATOCRIT 39.9 % (36.0-47.0); HEMOGLOBIN 13.4 g/dl (12.0-15.5); LYMPH # 0.7 10^3/uL (1.5-4.5); LYMPH % 9.9 % (24.0-44.0); MEAN CORPUSCULAR HEMOGLOBIN 28.8 pg (27.0-33.0); MEAN CORPUSCULAR HGB CONC 33.6 g/dl (32.0-36.5); MEAN CORPUSCULAR VOLUME 85.8 fl (80.0-96.0); MONO # 0.7 10^3/uL (0.0-0.8); MONO % 10.4 % (0.0-5.0); NEUTROPHILS # 4.8 10^3/uL (1.8-7.7); NEUTROPHILS % 73.2 % (36.0-66.0); PLATELET COUNT, AUTOMATED 160 10^3/uL (150-450); RED BLOOD COUNT 4.65 10^6/uL (4.00-5.40); WHITE BLOOD COUNT 6.6 10^3/uL (4.0-10.0)
[2019-05-19 08:07] LABS: ALBUMIN 2.9 GM/DL (3.2-5.2); ALT/SGPT 49 U/L (12-78); BILIRUBIN,TOTAL 0.8 MG/DL (0.2-1.0); BLOOD UREA NITROGEN 17 MG/DL (7-18); CALCIUM LEVEL 8.9 MG/DL (8.8-10.2); CARBON DIOXIDE LEVEL 27 MEQ/L (21-32); CHLORIDE LEVEL 108 MEQ/L (98-107); CREATININE FOR GFR 0.47 MG/DL (0.55-1.30); GLOMERULAR FILTRATION RATE > 60.0 (>32); GLUCOSE, FASTING 109 MG/DL (70-100); POTASSIUM SERUM 3.8 MEQ/L (3.5-5.1); SODIUM LEVEL 142 MEQ/L (136-145); TOTAL PROTEIN 5.9 GM/DL (6.4-8.2)
[2019-05-19] MEDS: APIXABAN 2.5 MG TAB (ELIQUIS) PO SCH ×2 (08:21→20:56)
[2019-05-19] MEDS: PANTOPRAZOLE 40MG TAB (PROTONIX) PO SCH (08:21)
[2019-05-19] MEDS: FLUoxetine 20 MG CAP PO SCH (08:22)
[2019-05-19] MEDS: ASPIRIN 81 MG CHEW TABLET PO SCH (08:22)
[2019-05-19] MEDS: METOPROLOL TART 25 MG TABLET PO SCH (08:22)
[2019-05-19] MEDS: DOCUSATE SODIUM 100 MG CAP PO SCH ×2 (08:22→20:57)
[2019-05-19 14:00] VITALS: BP 173/76
[2019-05-19] MEDS: LIDOCAINE 5% (LIDODERM) PATCH TD SCH (14:11)
[2019-05-19 17:14] VITALS: BP 165/77
--- NOTE | 2019-05-19 17:20 | REP ---
Left knee two views: There is tricompartment osteoarthritis, most severe in the lateral compartment. There is no effusion. There are no fractures. There are no calcifications. There is demineralization. 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 Demineralization. Electronically Signed by Adair Worthy MD 05/19/2019 05:12 P
--- NOTE | 2019-05-19 17:56 | REP ---
LEFT WRIST, FIVE VIEWS: Five views of the left wrist are performed. There is no acute fracture or dislocation. Arthritic changes are seen laterally with narrowing and subchondral sclerosis between the scaphoid and trapezium as well as between the trapezium and base of first metacarpal, with mild spurring at that joint as well. IMPRESSION: Degenerative changes without fracture or dislocation. Electronically Signed by Adair Chávez MD 05/21/2019 11:11 P
[2019-05-19 20:00] VITALS: BP 150/65
[2019-05-19] MEDS: ATORVASTATIN 20 MG TAB PO SCH (20:56)
[2019-05-19] MEDS: **NOTE PATIENT COMMENT** MISC XX SCH (20:57)
[2019-05-19] MEDS: METOPROLOL TART 50 MG TAB PO SCH (20:57)
[2019-05-19] MEDS: SENNA 8.6 MG TAB (SENOKOT) PO SCH (20:57)
[2019-05-20 05:40] VITALS: BP 146/74
[2019-05-20] MEDS: DOCUSATE SODIUM 100 MG CAP PO SCH ×2 (09:00→21:00)
[2019-05-20] MEDS: APIXABAN 2.5 MG TAB (ELIQUIS) PO SCH ×2 (10:51→21:34)
[2019-05-20] MEDS: PANTOPRAZOLE 40MG TAB (PROTONIX) PO SCH (10:51)
[2019-05-20] MEDS: FLUoxetine 20 MG CAP PO SCH (10:51)
[2019-05-20] MEDS: ASPIRIN 81 MG CHEW TABLET PO SCH (10:51)
[2019-05-20] MEDS: METOPROLOL TART 50 MG TAB PO SCH ×2 (10:52→21:00)
[2019-05-20] MEDS: LIDOCAINE 5% (LIDODERM) PATCH TD SCH (10:52)
[2019-05-20 14:00] VITALS: BP 152/74
[2019-05-20 16:15] VITALS: BP 152/74
[2019-05-20] MEDS: SENNA 8.6 MG TAB (SENOKOT) PO SCH (21:00)
[2019-05-20] MEDS: ATORVASTATIN 20 MG TAB PO SCH (21:34)
[2019-05-20] MEDS: **NOTE PATIENT COMMENT** MISC XX SCH (21:35)
[2019-05-20 22:00] VITALS: BP 148/82
[2019-05-21 06:00] VITALS: BP 130/70
[2019-05-21] MEDS: PANTOPRAZOLE 40MG TAB (PROTONIX) PO SCH (08:57)
[2019-05-21] MEDS: FLUoxetine 20 MG CAP PO SCH (08:57)
[2019-05-21] MEDS: LIDOCAINE 5% (LIDODERM) PATCH TD SCH (08:57)
[2019-05-21] MEDS: ASPIRIN 81 MG CHEW TABLET PO SCH (08:58)
[2019-05-21] MEDS: METOPROLOL TART 50 MG TAB PO SCH ×2 (08:58→22:01)
[2019-05-21] MEDS: DOCUSATE SODIUM 100 MG CAP PO SCH ×2 (08:58→21:00)
[2019-05-21] MEDS: APIXABAN 2.5 MG TAB (ELIQUIS) PO SCH ×2 (08:58→22:01)
[2019-05-21 14:00] VITALS: BP 136/73
[2019-05-21] MEDS ORDERED: ACETAMINOPHEN 500 MG TAB PO SCH (16:00)
[2019-05-21] MEDS: ACETAMINOPHEN 500 MG TAB PO SCH ×2 (16:04→22:00)
[2019-05-21] MEDS: PRESERVISION PO SCH (18:22)
[2019-05-21 20:00] VITALS: BP 158/58
[2019-05-21] MEDS: SENNA 8.6 MG TAB (SENOKOT) PO SCH (21:00)
[2019-05-21] MEDS: **NOTE PATIENT COMMENT** MISC XX SCH (21:00)
[2019-05-21] MEDS: ATORVASTATIN 20 MG TAB PO SCH (22:01)
[2019-05-22 06:00] VITALS: BP 168/75
[2019-05-22] MEDS: PANTOPRAZOLE 40MG TAB (PROTONIX) PO SCH (08:24)
[2019-05-22] MEDS: FLUoxetine 20 MG CAP PO SCH (08:24)
[2019-05-22] MEDS: METOPROLOL TART 50 MG TAB PO SCH ×2 (08:24→20:15)
[2019-05-22] MEDS: ASPIRIN 81 MG CHEW TABLET PO SCH (08:24)
[2019-05-22] MEDS: ACETAMINOPHEN 500 MG TAB PO SCH ×3 (08:25→20:07)
[2019-05-22] MEDS: APIXABAN 2.5 MG TAB (ELIQUIS) PO SCH ×2 (08:25→20:06)
[2019-05-22] MEDS: DOCUSATE SODIUM 100 MG CAP PO SCH ×2 (08:25→20:06)
[2019-05-22] MEDS: LIDOCAINE 5% (LIDODERM) PATCH TD SCH (08:25)
[2019-05-22] MEDS: PRESERVISION PO SCH (08:28)
[2019-05-22 14:00] VITALS: BP 140/78
[2019-05-22 20:00] VITALS: BP 143/68
[2019-05-22] MEDS: ATORVASTATIN 20 MG TAB PO SCH (20:07)
[2019-05-22] MEDS: SENNA 8.6 MG TAB (SENOKOT) PO SCH (20:08)
[2019-05-22] MEDS: **NOTE PATIENT COMMENT** MISC XX SCH (20:08)
[2019-05-23 06:00] VITALS: BP 137/61
[2019-05-23] MEDS: DOCUSATE SODIUM 100 MG CAP PO SCH ×2 (09:00→20:14)
[2019-05-23] MEDS: METOPROLOL TART 50 MG TAB PO SCH (09:00)
[2019-05-23] MEDS: LIDOCAINE 5% (LIDODERM) PATCH TD SCH (09:31)
[2019-05-23] MEDS: PANTOPRAZOLE 40MG TAB (PROTONIX) PO SCH (09:31)
[2019-05-23] MEDS: FLUoxetine 20 MG CAP PO SCH (09:31)
[2019-05-23] MEDS: ASPIRIN 81 MG CHEW TABLET PO SCH (09:31)
[2019-05-23] MEDS: APIXABAN 2.5 MG TAB (ELIQUIS) PO SCH ×2 (09:31→20:13)
[2019-05-23] MEDS: ACETAMINOPHEN 500 MG TAB PO SCH ×3 (09:33→20:14)
[2019-05-23] MEDS: PRESERVISION PO SCH (09:33)
[2019-05-23 14:00] VITALS: BP 156/72
[2019-05-23] MEDS: DULoxetine 30 MG CAP (CYMBALTA) PO SCH (16:16)
[2019-05-23] MEDS: DICLOFENAC EPOLAMINE 1.3 % PATCH TOP SCH ×2 (16:17→20:14)
[2019-05-23 20:00] VITALS: BP 152/76
[2019-05-23] MEDS: ATORVASTATIN 20 MG TAB PO SCH (20:14)
[2019-05-23] MEDS: SENNA 8.6 MG TAB (SENOKOT) PO SCH (20:14)
[2019-05-23] MEDS: **NOTE PATIENT COMMENT** MISC XX SCH (20:15)
[2019-05-24 06:00] VITALS: BP 138/73
[2019-05-24 08:08] LABS: BASO # 0.1 10^3/uL (0.0-0.2); EOS # 0.2 10^3/uL (0.0-0.50); EOS % 3.9 % (0.0-3.0); HEMATOCRIT 40.7 % (36.0-47.0); HEMOGLOBIN 13.6 g/dl (12.0-15.5); LYMPH # 0.6 10^3/uL (1.5-4.5); MEAN CORPUSCULAR HGB CONC 33.4 g/dl (32.0-36.5); MEAN CORPUSCULAR VOLUME 86.8 fl (80.0-96.0); MONO # 0.3 10^3/uL (0.0-0.8); MONO % 6.5 % (0.0-5.0); NEUTROPHILS # 3.8 10^3/uL (1.8-7.7); NEUTROPHILS % 76.2 % (36.0-66.0); PLATELET COUNT, AUTOMATED 215 10^3/uL (150-450); RED BLOOD COUNT 4.69 10^6/uL (4.00-5.40); WHITE BLOOD COUNT 4.9 10^3/uL (4.0-10.0)
[2019-05-24 08:43] LABS: ALBUMIN 3.1 GM/DL (3.2-5.2); ALT/SGPT 37 U/L (12-78); BILIRUBIN,TOTAL 0.5 MG/DL (0.2-1.0); BLOOD UREA NITROGEN 13 MG/DL (7-18); CARBON DIOXIDE LEVEL 27 MEQ/L (21-32); CHLORIDE LEVEL 105 MEQ/L (98-107); CREATININE FOR GFR 0.72 MG/DL (0.55-1.30); GLOMERULAR FILTRATION RATE > 60.0 (>32); GLUCOSE, FASTING 165 MG/DL (70-100); MAGNESIUM LEVEL 1.9 MG/DL (1.8-2.4); POTASSIUM SERUM 3.7 MEQ/L (3.5-5.1); SODIUM LEVEL 140 MEQ/L (136-145); TOTAL PROTEIN 6.4 GM/DL (6.4-8.2)
[2019-05-24] MEDS ORDERED: methylPREDNISolone 4 MG TAB PO ONE (09:00)
[2019-05-24] MEDS: DOCUSATE SODIUM 100 MG CAP PO SCH ×2 (09:23→20:42)
[2019-05-24] MEDS: PANTOPRAZOLE 40MG TAB (PROTONIX) PO SCH (09:23)
[2019-05-24] MEDS: DULoxetine 30 MG CAP (CYMBALTA) PO SCH (09:23)
[2019-05-24] MEDS: METOPROLOL SUCC *XL* 25MG TAB (TopROL *XL*) PO SCH (09:23)
[2019-05-24] MEDS: ACETAMINOPHEN 500 MG TAB PO SCH ×3 (09:23→20:42)
[2019-05-24] MEDS: ASPIRIN 81 MG CHEW TABLET PO SCH (09:23)
[2019-05-24] MEDS: DICLOFENAC EPOLAMINE 1.3 % PATCH TOP SCH ×2 (09:24→20:42)
[2019-05-24] MEDS: LIDOCAINE 5% (LIDODERM) PATCH TD SCH (09:24)
[2019-05-24] MEDS: APIXABAN 2.5 MG TAB (ELIQUIS) PO SCH ×2 (09:24→20:42)
[2019-05-24] MEDS: PRESERVISION PO SCH (09:26)
[2019-05-24] MEDS ORDERED: OXYMETAZOLINE NASAL SPRAY (AFRIN) PRN (10:00)
--- NOTE | 2019-05-24 10:51 | IPNPDOC ---
Text Note Date of Service The patient was seen on 05/24/19. NOTE Subjective: Patient is an 88-year-old female with PMHx of Atrial fibrillation (on Eliquis) - s/p ablation, HTN, DLP, who presents to the hospital with slurred speech. Patient was admitted to the medical floor for acute CVA. Patient was outside the TPA window upon arrival / was also not a candidate because of anti- coagulation. Patient was ultimately transferred to ARU on 05/18/2019 for continued rehabilitation. Patient was seen and examined at the bedside. Currently patient denies nausea, vomiting, chest pain, shortness of breath or abdominal pain. . She continues to work with physical therapy and reports some mild left leg aching. Objective: Vitals (See below) General: Lying in bed, no acute distress, comfortable, AAOx3 HEENT: NC, AT CVS: RRR, +S1S2 Lungs: Fair air entry b/l, -w/r/r Abdomen: Soft, ND, NT Extremities: - Edema, - Calf tenderness Assessment and plan: Right external capsule and guan radiata ischemic infarction with left sided hemiplegia - c/w Eliquis, ASA and Atorvastatin - Physical therapy and occupational therapy at the direction of ARU A. fib - s/p ablation - c/w full anticoagulation with Eliquis HTN - BP remains well controlled - c/w Metoprolol succinate Left hip pain - XR are negative for fracture - c/w Pain control as per ARU - c/w PT / OT Mood disorder - c/w Duloxetine and Trazodone GI prophylaxis - c/w Protonix DVT prophylaxis - c/w full anticoagulation with Eliquis VS,Fishbone, I+O VS, Fishbone, I+O Laboratory Tests 05/24/19 07:56 Red Blood Count 4.69, Mean Corpuscular Volume 86.8, Mean Corpuscular Hemoglobin 29.0, Mean Corpuscular Hemoglobin Concent 33.4, Red Cell Distribution Width 12.7, Neutrophils (%) (Auto) 76.2 H, Lymphocytes (%) (Auto) 12.0 L, Monocytes (%) (Auto) 6.5 H, Eosinophils (%) (Auto) 3.9 H, Basophils (%) (Auto) 1.0, Neutrophils # (Auto) 3.8, Lymphocytes # (Auto) 0.6 L, Monocytes # (Auto) 0.3, Eosinophils # (Auto) 0.2, Basophils # (Auto) 0.1, Calcium Level 9.0, Aspartate Amino Transf (AST/SGOT) 16, Alanine Aminotransferase (ALT/SGPT) 37, Alkaline Phosphatase 139 H, Total Bilirubin 0.5, Total Protein 6.4, Albumin 3.1 L Vital Signs Date Time Temp Pulse Resp B/P (MAP) Pulse Ox O2 Delivery O2 Flow Rate FiO2 05/24/19 09:23 71 138/73 05/24/19 06:00 97.5 18 95 I&O- Last 24 Hours up to 6 AM 05/24/19 06:00 Intake Total 920 ml Balance 920 ml CAROLANN LUCAS MD May 24, 2019 10:51
[2019-05-24] MEDS ORDERED: VARIBAR PUDDING 40% w/v 230ML TUBE As Ordered ONE (11:31)
[2019-05-24] MEDS ORDERED: VARIBAR NECTAR 40% w/v 240ML SUSP BTL As Ordered ONE (11:31)
[2019-05-24] MEDS ORDERED: E-Z-PAQUE 96% w/w SUSP 176GM BTL As Ordered ONE (11:31)
--- NOTE | 2019-05-24 12:57 | IPNPDOC ---
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 She usually wears arch supports and a knee brace. REVIEW OF SYSTEMS: The following is a completed review of systems and has been reviewed. Review of systems otherwise unremarkable. PAIN: Patient self reports left wrist pain and left knee pain EYES: No recent vision changes EARS, NOSE, & THROAT:+dysphagia CARDIOVASCULAR: Denies chest pain or palpitations PULMONARY: Denies shortness of breath GASTROINTESTINAL: +loose stools GENITOURINARY: denies dysuria MUSCULOSKELETAL: left knee and wrist pain NEUROLOGICAL:LUE and LLE paresis SKIN: no rash PSYCHIATRIC: Unremarkable All other review of systems found to be negative. PHYSICAL EXAMINATION: VITAL SIGNS: Please see below. GENERAL: Pleasant and cooperative. No acute distress. HEENT: PERRL. Extraocular movements intact. Clear conjunctiva, no facial droop CARDIOVASCULAR:Irregular rate and rhythm. No murmurs, rubs, or gallops LUNGS: Clear to auscultation bilaterally. No wheezes. No rhonchi ABDOMEN: Soft, nontender, nondistended. Positive bowel sounds. Normal active bowel sounds NEUROLOGICAL: Alert and oriented times three, able to give detailed story Cranial nerves II through XII grossly intact. Sensation grossly intact in all 4 limbs (-) babinki bilat EXTREMITIES: 5\5 strength right upper extremities. 4/5 LUE, 4/5 LLE, 5\5 strength right lower extremity. 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 PLAN: 1. 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 Cardio: pmh Afib and HTN on elquis and beta-rajesh, medicine consulted to assist in management -HLD- statin 4. Resp: encourage incentive spirometry 5. : monitor PVRS 6. DVT ppx: teds and eliquis 7. GI ppx: protonix 8. Ortho: left knee effusion and left wrist swelling both improving, Xrays both negative for fracture, positive for arthritic changes, counseled patient and family on danger of restarting Diclofenac given recent stroke for it cardiovascular effects and for GI bleed risk while on ASA and eliquis, suggested Diclofenac gel instead (patient to bring from home) and will try Medrol dose pack for swelling in left knee which is limiting weight bearing in addition to starting Cymbalta 9. Dispo: 06/07/19 to home Allergies Coded Allergies: No Known Allergies (Unverified , 05/14/19) Vital Signs Vital Signs Date Time Temp Pulse Resp B/P (MAP) Pulse Ox O2 Delivery O2 Flow Rate FiO2 05/24/19 09:23 71 138/73 05/24/19 06:00 97.5 18 95 Laboratory Data CBC/BMP Laboratory Tests 05/24/19 07:56 Red Blood Count 4.69, Mean Corpuscular Volume 86.8, Mean Corpuscular Hemoglobin 29.0, Mean Corpuscular Hemoglobin Concent 33.4, Red Cell Distribution Width 12.7, Neutrophils (%) (Auto) 76.2 H, Lymphocytes (%) (Auto) 12.0 L, Monocytes (%) (Auto) 6.5 H, Eosinophils (%) (Auto) 3.9 H, Basophils (%) (Auto) 1.0, Neutrophils # (Auto) 3.8, Lymphocytes # (Auto) 0.6 L, Monocytes # (Auto) 0.3, Eosinophils # (Auto) 0.2, Basophils # (Auto) 0.1, Calcium Level 9.0, Aspartate Amino Transf (AST/SGOT) 16, Alanine Aminotransferase (ALT/SGPT) 37, Alkaline Phosphatase 139 H, Total Bilirubin 0.5, Total Protein 6.4, Albumin 3.1 L Labs 24H Laboratory Tests 2 05/24/19 07:56: Immature Granulocyte % (Auto) 0.4, White Blood Count 4.9, Red Blood Count 4.69, Hemoglobin 13.6, Hematocrit 40.7, Mean Corpuscular Volume 86.8, Mean Corpuscular Hemoglobin 29.0, Mean Corpuscular Hemoglobin Concent 33.4, Red Cell Distribution Width 12.7, Platelet Count 215, Neutrophils (%) (Auto) 76.2H, Lymphocytes (%) (Auto) 12.0L, Monocytes (%) (Auto) 6.5H, Eosinophils (%) (Auto) 3.9H, Basophils (%) (Auto) 1.0, Neutrophils # (Auto) 3.8, Lymphocytes # (Auto) 0.6L, Monocytes # (Auto) 0.3, Eosinophils # (Auto) 0.2, Basophils # (Auto) 0.1, Nucleated Red Blood Cells % (auto) 0.0, Anion Gap 8, Glomerular Filtration Rate > 60.0, Blood Urea Nitrogen 13, Creatinine 0.72, Sodium Level 140, Potassium Level 3.7, Chloride Level 105, Carbon Dioxide Level 27, Calcium Level 9.0, Aspartate Amino Transf (AST/SGOT) 16, Alanine Aminotransferase (ALT/SGPT) 37, Alkaline Phosphatase 139H, Total Bilirubin 0.5, Total Protein 6.4, Albumin 3.1L, Magnesium Level 1.9, Albumin/Globulin Ratio 0.94L Current Medications Current Medications Current Medications Medications (Trade) Dose Ordered Sig/Didier Route PRN Reason Start Time Stop Time Status Last Admin Dose Admin Acetaminophen (Tylenol Tab) 650 mg Q4HP PRN PO MILD PAIN (PS 1-4) 05/18/19 13:45 05/21/19 13:38 DC Acetaminophen (Tylenol Tab) 1,000 mg TID PO 05/21/19 16:00 05/24/19 09:23 Acetaminophen (Tylenol Tab) 1,000 mg TID PO 05/21/19 16:00 UNV Apixaban (Eliquis) 2.5 mg BID PO 05/18/19 21:00 05/24/19 09:24 Aspirin (Aspirin Chewable) 81 mg DAILY PO 05/19/19 09:00 05/24/19 09:23 Atorvastatin Calcium (Lipitor) 40 mg QHS PO 05/18/19 21:00 05/23/19 20:14 Bisacodyl (Dulcolax Suppository) 10 mg DAILYPRN PRN [place] CONSTIPATION 05/18/19 13:45 Diclofenac Epolamine (Flector 1.3%) 1 patch Q12H TOP 05/23/19 09:00 05/24/19 09:24 Docusate Sodium (Colace) 100 mg BID PO 05/18/19 21:00 05/24/19 09:23 Duloxetine HCl (Cymbalta) 30 mg DAILY PO 05/23/19 09:00 05/24/19 09:23 Fluoxetine HCl (PROzac) 20 mg DAILY PO 05/19/19 09:00 05/23/19 14:41 DC 05/23/19 09:31 Home Med (Med Rec Complete!) ASDIRECTED XX 05/18/19 16:00 05/18/19 16:00 DC Lidocaine (Lidoderm Patch) 1 patch DAILY TD 05/24/19 09:00 05/24/19 09:24 Lidocaine (Lidoderm Patch) 2 patch DAILY TD 05/19/19 09:00 05/23/19 14:54 DC 05/23/19 09:31 Magnesium Hydroxide (Milk Of Magnesia) 30 ml DAILYPRN PRN PO CONSTIPATION 05/18/19 13:45 Methylprednisolone (Medrol) 4 mg 6XD PO 05/24/19 12:00 05/24/19 21:01 Methylprednisolone (Medrol) 4 mg Taper 5XD PO 05/25/19 06:00 05/30/19 05:59 Metoprolol Succinate (TopROL XL) 25 mg DAILY PO 05/24/19 09:00 05/24/19 09:23 Metoprolol Tartrate (Lopressor) 25 mg BID PO 05/18/19 21:00 05/19/19 09:30 DC 05/19/19 08:22 Metoprolol Tartrate (Lopressor) 50 mg BID PO 05/19/19 21:00 05/23/19 14:41 DC 05/22/19 20:15 Non-Formulary Medication ( See Comment Field Below ) REMOVE LIDODERM PATCH DAILY@21 XX 05/19/19 21:00 05/23/19 20:15 Oxymetazoline HCl (Afrin) 2 spray ASDIRECTED PRN NA SEE LABEL COMMENTS 05/24/19 10:00 05/24/19 11:21 DC Pantoprazole Sodium (Protonix) 40 mg DAILY PO 05/19/19 09:00 05/24/19 09:23 Patient Own Medication (Patient'S Own Med) PresverVision 1 gelcap po daily DAILY PO 05/21/19 09:00 05/24/19 09:26 Senna (Senokot) 1 tab QHS PO 05/18/19 21:00 05/22/19 20:08 Trazodone HCl (Desyrel) 25 mg QHSP PRN PO INSOMNIA 05/18/19 13:45 PAULA JOHNSON MD May 24, 2019 12:57
[2019-05-24] MEDS: methylPREDNISolone 4 MG TAB PO SCH ×4 (12:59→20:41)
--- NOTE | 2019-05-24 12:59 | IPNPDOC ---
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 REVIEW OF SYSTEMS: The following is a completed review of systems and has been r eviewed. Review of systems otherwise unremarkable. PAIN: Patient self reports left wrist pain and left knee pain EYES: No recent vision changes EARS, NOSE, & THROAT:+dysphagia CARDIOVASCULAR: Denies chest pain or palpitations PULMONARY: Denies shortness of breath GASTROINTESTINAL: +loose stools GENITOURINARY: denies dysuria MUSCULOSKELETAL: left knee and wrist pain NEUROLOGICAL:LUE and LLE paresis SKIN: no rash PSYCHIATRIC: Unremarkable All other review of systems found to be negative. PHYSICAL EXAMINATION: VITAL SIGNS: Please see below. GENERAL: Pleasant and cooperative. No acute distress. HEENT: PERRL. Extraocular movements intact. Clear conjunctiva, no facial droop CARDIOVASCULAR:Irregular rate and rhythm. No murmurs, rubs, or gallops LUNGS: Clear to auscultation bilaterally. No wheezes. No rhonchi ABDOMEN: Soft, nontender, nondistended. Positive bowel sounds. Normal active bowel sounds NEUROLOGICAL: Alert and oriented times three, able to give detailed story Cranial nerves II through XII grossly intact. Sensation grossly intact in all 4 limbs (-) babinki bilat EXTREMITIES: 5\5 strength right upper extremities. 4/5 LUE, 4/5 LLE, 5\5 strength right lower extremity. 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 PLAN: 1. 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 Cardio: pmh Afib and HTN on elquis and beta-rajesh, adjusted dosing and holding parameters for better BP control, will start DIPESH-I -medicine consulted to assist in management -HLD- statin 4. Resp: encourage incentive spirometry 5. : monitor PVRS 6. DVT ppx: teds and eliquis 7. GI ppx: protonix 8. Ortho: left knee effusion and left wrist swelling both improving, Xrays both negative for fracture, positive for arthritic changes, counseled patient and family on danger of restarting Diclofenac given recent stroke for its cardiovascular effects and for GI bleed risk while on ASA and eliquis, suggested Diclofenac gel instead (patient to bring from home) -c/u Medrol dose pack for swelling in left knee which is limiting weight bearing in addition to starting Cymbalta 9. Dispo: 06/07/19 to home Allergies Coded Allergies: No Known Allergies (Unverified , 05/14/19) Vital Signs Vital Signs Date Time Temp Pulse Resp B/P (MAP) Pulse Ox O2 Delivery O2 Flow Rate FiO2 05/24/19 09:23 71 138/73 05/24/19 06:00 97.5 18 95 Laboratory Data CBC/BMP Laboratory Tests 05/24/19 07:56 Red Blood Count 4.69, Mean Corpuscular Volume 86.8, Mean Corpuscular Hemoglobin 29.0, Mean Corpuscular Hemoglobin Concent 33.4, Red Cell Distribution Width 12.7, Neutrophils (%) (Auto) 76.2 H, Lymphocytes (%) (Auto) 12.0 L, Monocytes (%) (Auto) 6.5 H, Eosinophils (%) (Auto) 3.9 H, Basophils (%) (Auto) 1.0, Neutrophils # (Auto) 3.8, Lymphocytes # (Auto) 0.6 L, Monocytes # (Auto) 0.3, Eosinophils # (Auto) 0.2, Basophils # (Auto) 0.1, Calcium Level 9.0, Aspartate Amino Transf (AST/SGOT) 16, Alanine Aminotransferase (ALT/SGPT) 37, Alkaline Phosphatase 139 H, Total Bilirubin 0.5, Total Protein 6.4, Albumin 3.1 L Labs 24H Laboratory Tests 2 05/24/19 07:56: Immature Granulocyte % (Auto) 0.4, White Blood Count 4.9, Red Blood Count 4.69, Hemoglobin 13.6, Hematocrit 40.7, Mean Corpuscular Volume 86.8, Mean Corpuscular Hemoglobin 29.0, Mean Corpuscular Hemoglobin Concent 33.4, Red Cell Distribution Width 12.7, Platelet Count 215, Neutrophils (%) (Auto) 76.2H, Lymphocytes (%) (Auto) 12.0L, Monocytes (%) (Auto) 6.5H, Eosinophils (%) (Auto) 3.9H, Basophils (%) (Auto) 1.0, Neutrophils # (Auto) 3.8, Lymphocytes # (Auto) 0.6L, Monocytes # (Auto) 0.3, Eosinophils # (Auto) 0.2, Basophils # (Auto) 0.1, Nucleated Red Blood Cells % (auto) 0.0, Anion Gap 8, Glomerular Filtration Rate > 60.0, Blood Urea Nitrogen 13, Creatinine 0.72, Sodium Level 140, Potassium Level 3.7, Chloride Level 105, Carbon Dioxide Level 27, Calcium Level 9.0, Aspartate Amino Transf (AST/SGOT) 16, Alanine Aminotransferase (ALT/SGPT) 37, Alkaline Phosphatase 139H, Total Bilirubin 0.5, Total Protein 6.4, Albumin 3.1L, Magnesium Level 1.9, Albumin/Globulin Ratio 0.94L Current Medications Current Medications Current Medications Medications (Trade) Dose Ordered Sig/Didier Route PRN Reason Start Time Stop Time Status Last Admin Dose Admin Acetaminophen (Tylenol Tab) 650 mg Q4HP PRN PO MILD PAIN (PS 1-4) 05/18/19 13:45 05/21/19 13:38 DC Acetaminophen (Tylenol Tab) 1,000 mg TID PO 05/21/19 16:00 05/24/19 09:23 Acetaminophen (Tylenol Tab) 1,000 mg TID PO 05/21/19 16:00 UNV Apixaban (Eliquis) 2.5 mg BID PO 05/18/19 21:00 05/24/19 09:24 Aspirin (Aspirin Chewable) 81 mg DAILY PO 05/19/19 09:00 05/24/19 09:23 Atorvastatin Calcium (Lipitor) 40 mg QHS PO 05/18/19 21:00 05/23/19 20:14 Bisacodyl (Dulcolax Suppository) 10 mg DAILYPRN PRN [place] CONSTIPATION 05/18/19 13:45 Diclofenac Epolamine (Flector 1.3%) 1 patch Q12H TOP 05/23/19 09:00 05/24/19 09:24 Docusate Sodium (Colace) 100 mg BID PO 05/18/19 21:00 05/24/19 09:23 Duloxetine HCl (Cymbalta) 30 mg DAILY PO 05/23/19 09:00 05/24/19 09:23 Fluoxetine HCl (PROzac) 20 mg DAILY PO 05/19/19 09:00 05/23/19 14:41 DC 05/23/19 09:31 Home Med (Med Rec Complete!) ASDIRECTED XX 05/18/19 16:00 05/18/19 16:00 DC Lidocaine (Lidoderm Patch) 1 patch DAILY TD 05/24/19 09:00 05/24/19 09:24 Lidocaine (Lidoderm Patch) 2 patch DAILY TD 05/19/19 09:00 05/23/19 14:54 DC 05/23/19 09:31 Magnesium Hydroxide (Milk Of Magnesia) 30 ml DAILYPRN PRN PO CONSTIPATION 05/18/19 13:45 Methylprednisolone (Medrol) 4 mg 6XD PO 05/24/19 12:00 05/24/19 21:01 Methylprednisolone (Medrol) 4 mg Taper 5XD PO 05/25/19 06:00 05/30/19 05:59 Metoprolol Succinate (TopROL XL) 25 mg DAILY PO 05/24/19 09:00 05/24/19 09:23 Metoprolol Tartrate (Lopressor) 25 mg BID PO 05/18/19 21:00 05/19/19 09:30 DC 05/19/19 08:22 Metoprolol Tartrate (Lopressor) 50 mg BID PO 05/19/19 21:00 05/23/19 14:41 DC 05/22/19 20:15 Non-Formulary Medication ( See Comment Field Below ) REMOVE LIDODERM PATCH DAILY@21 XX 05/19/19 21:00 8/27/19 20:15 Oxymetazoline HCl (Afrin) 2 spray ASDIRECTED PRN NA SEE LABEL COMMENTS 05/24/19 10:00 05/24/19 11:21 DC Pantoprazole Sodium (Protonix) 40 mg DAILY PO 05/19/19 09:00 05/24/19 09:23 Patient Own Medication (Patient'S Own Med) PresverVision 1 gelcap po daily DAILY PO 05/21/19 09:00 05/24/19 09:26 Senna (Senokot) 1 tab QHS PO 05/18/19 21:00 05/22/19 20:08 Trazodone HCl (Desyrel) 25 mg QHSP PRN PO INSOMNIA 05/18/19 13:45 PAULA JOHNSON MD May 24, 2019 12:59
[2019-05-24 14:00] VITALS: BP 148/69
--- NOTE | 2019-05-24 16:43 | REP ---
COOKIE SWALLOW The procedure was performed under the direct supervision of Dr. Velazquez. The procedure was performed with Chikis Vasquez from speech pathology present. 5 ml aliquots of thin, nectar, pudding, solid, and mixed fruit consistency barium was administered. With thin and nectar consistency barium there is laryngeal penetration. A detailed report of this examination will be provided by speech pathology. 1.3 minutes of fluoroscopy time was utilized for this procedure. Reviewed by EMILY Muniz 05/24/2019 04:08 P Electronically Signed by Jefry Velazquez MD 05/24/2019 04:34 P
[2019-05-24 20:00] VITALS: BP 170/72
[2019-05-24] MEDS: ATORVASTATIN 20 MG TAB PO SCH (20:42)
[2019-05-24] MEDS: SENNA 8.6 MG TAB (SENOKOT) PO SCH (20:43)
[2019-05-24] MEDS: **NOTE PATIENT COMMENT** MISC XX SCH (20:43)
[2019-05-25 05:37] VITALS: BP 133/88
[2019-05-25] MEDS: methylPREDNISolone 4 MG TAB PO SCH ×5 (06:26→20:36)
[2019-05-25] MEDS: METOPROLOL SUCC *XL* 25MG TAB (TopROL *XL*) PO SCH (08:53)
[2019-05-25] MEDS: ASPIRIN 81 MG CHEW TABLET PO SCH (08:53)
[2019-05-25] MEDS: DOCUSATE SODIUM 100 MG CAP PO SCH ×2 (08:53→20:51)
[2019-05-25] MEDS: PANTOPRAZOLE 40MG TAB (PROTONIX) PO SCH (08:54)
[2019-05-25] MEDS: APIXABAN 2.5 MG TAB (ELIQUIS) PO SCH ×2 (08:54→20:35)
[2019-05-25] MEDS: DULoxetine 30 MG CAP (CYMBALTA) PO SCH (08:54)
[2019-05-25] MEDS: ACETAMINOPHEN 500 MG TAB PO SCH ×3 (08:54→20:36)
[2019-05-25] MEDS: lisinopriL 10 MG TAB PO SCH (08:54)
[2019-05-25] MEDS: DICLOFENAC EPOLAMINE 1.3 % PATCH TOP SCH ×2 (08:55→20:36)
[2019-05-25] MEDS: LIDOCAINE 5% (LIDODERM) PATCH TD SCH (08:56)
[2019-05-25] MEDS: PRESERVISION PO SCH (08:58)
--- NOTE | 2019-05-25 11:38 | IPNPDOC ---
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 She denies fever, chills, or cough. REVIEW OF SYSTEMS: The following is a completed review of systems and has been reviewed. Review of systems otherwise unremarkable. PAIN: Patient self reports left wrist pain and left knee pain EYES: No recent vision changes EARS, NOSE, & THROAT:+dysphagia CARDIOVASCULAR: Denies chest pain or palpitations PULMONARY: Denies shortness of breath GASTROINTESTINAL: +loose stools GENITOURINARY: denies dysuria MUSCULOSKELETAL: left knee and wrist pain NEUROLOGICAL:LUE and LLE paresis SKIN: no rash PSYCHIATRIC: Unremarkable All other review of systems found to be negative. PHYSICAL EXAMINATION: VITAL SIGNS: Please see below. GENERAL: Pleasant and cooperative. No acute distress. HEENT: PERRL. Extraocular movements intact. Clear conjunctiva, no facial droop CARDIOVASCULAR:Irregular rate and rhythm. No murmurs, rubs, or gallops LUNGS: Clear to auscultation bilaterally. No wheezes. No rhonchi ABDOMEN: Soft, nontender, nondistended. Positive bowel sounds. Normal active bowel sounds NEUROLOGICAL: Alert and oriented times three, able to give detailed story Cranial nerves II through XII grossly intact. Sensation grossly intact in all 4 limbs (-) babinki bilat EXTREMITIES: 5\5 strength right upper extremities. 4/5 LUE, 4/5 LLE, 5\5 strength right lower extremity. 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 PLAN: 1. 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 Cardio: pmh Afib and HTN on elquis and beta-rajesh, adjusted dosing and holding parameters for better BP control, will start DIPESH-I -medicine consulted to assist in management -HLD- statin 4. Resp: encourage incentive spirometry 5. : monitor PVRS 6. DVT ppx: teds and eliquis 7. GI ppx: protonix 8. Ortho: left knee effusion and left wrist swelling both improving, Xrays both negative for fracture, positive for arthritic changes, counseled patient and family on danger of restarting Diclofenac given recent stroke for its cardiovascular effects and for GI bleed risk while on ASA and eliquis, suggested Diclofenac gel instead (patient to bring from home) -c/u Medrol dose pack and Cymbalta 9. Dispo: 06/07/19 to home Allergies Coded Allergies: No Known Allergies (Unverified , 05/14/19) Vital Signs Vital Signs Date Time Temp Pulse Resp B/P (MAP) Pulse Ox O2 Delivery O2 Flow Rate FiO2 05/25/19 08:53 61 133/88 05/25/19 05:37 97.5 18 96 Current Medications Current Medications Current Medications Medications (Trade) Dose Ordered Sig/Didier Route PRN Reason Start Time Stop Time Status Last Admin Dose Admin Acetaminophen (Tylenol Tab) 650 mg Q4HP PRN PO MILD PAIN (PS 1-4) 05/18/19 13:45 05/21/19 13:38 DC Acetaminophen (Tylenol Tab) 1,000 mg TID PO 05/21/19 16:00 05/25/19 08:54 Acetaminophen (Tylenol Tab) 1,000 mg TID PO 05/21/19 16:00 UNV Apixaban (Eliquis) 2.5 mg BID PO 05/18/19 21:00 05/25/19 08:54 Aspirin (Aspirin Chewable) 81 mg DAILY PO 05/19/19 09:00 05/25/19 08:53 Atorvastatin Calcium (Lipitor) 40 mg QHS PO 05/18/19 21:00 05/24/19 20:42 Bisacodyl (Dulcolax Suppository) 10 mg DAILYPRN PRN [place] CONSTIPATION 05/18/19 13:45 Diclofenac Epolamine (Flector 1.3%) 1 patch Q12H TOP 05/23/19 09:00 05/25/19 08:55 Docusate Sodium (Colace) 100 mg BID PO 05/18/19 21:00 05/25/19 08:53 Duloxetine HCl (Cymbalta) 30 mg DAILY PO 05/23/19 09:00 05/25/19 08:54 Fluoxetine HCl (PROzac) 20 mg DAILY PO 05/19/19 09:00 05/23/19 14:41 DC 05/23/19 09:31 Home Med (Med Rec Complete!) ASDIRECTED XX 05/18/19 16:00 05/18/19 16:00 DC Lidocaine (Lidoderm Patch) 1 patch DAILY TD 05/24/19 09:00 05/25/19 08:56 Lidocaine (Lidoderm Patch) 2 patch DAILY TD 05/19/19 09:00 05/23/19 14:54 DC 05/23/19 09:31 Lisinopril (Prinivil) 10 mg DAILY PO 05/25/19 09:00 05/25/19 08:54 Magnesium Hydroxide (Milk Of Magnesia) 30 ml DAILYPRN PRN PO CONSTIPATION 05/18/19 13:45 Methylprednisolone (Medrol) 4 mg 6XD PO 05/24/19 12:00 05/24/19 21:01 DC 05/24/19 20:41 Methylprednisolone (Medrol) 4 mg Taper 5XD PO 05/25/19 06:00 05/30/19 05:59 05/25/19 08:57 Metoprolol Succinate (TopROL XL) 25 mg DAILY PO 05/24/19 09:00 05/25/19 08:53 Metoprolol Tartrate (Lopressor) 25 mg BID PO 05/18/19 21:00 05/19/19 09:30 DC 05/19/19 08:22 Metoprolol Tartrate (Lopressor) 50 mg BID PO 05/19/19 21:00 05/23/19 14:41 DC 05/22/19 20:15 Non-Formulary Medication ( See Comment Field Below ) REMOVE LIDODERM PATCH DAILY@21 XX 05/19/19 21:00 05/24/19 20:43 Oxymetazoline HCl (Afrin) 2 spray ASDIRECTED PRN NA SEE LABEL COMMENTS 05/24/19 10:00 05/24/19 11:21 DC Pantoprazole Sodium (Protonix) 40 mg DAILY PO 05/19/19 09:00 05/25/19 08:54 Patient Own Medication (Patient'S Own Med) PresverVision 1 gelcap po daily DAILY PO 05/21/19 09:00 05/25/19 08:58 Senna (Senokot) 1 tab QHS PO 05/18/19 21:00 05/22/19 20:08 Trazodone HCl (Desyrel) 25 mg QHSP PRN PO INSOMNIA 05/18/19 13:45 PAULA JOHNSON MD May 25, 2019 11:38
[2019-05-25 14:00] VITALS: BP 168/79
[2019-05-25] MEDS: ATORVASTATIN 20 MG TAB PO SCH (20:35)
[2019-05-25] MEDS: **NOTE PATIENT COMMENT** MISC XX SCH (20:37)
[2019-05-25] MEDS: SENNA 8.6 MG TAB (SENOKOT) PO SCH (20:51)
[2019-05-25 21:22] VITALS: BP 141/74
[2019-05-26 04:00] VITALS: BP 140/75
[2019-05-26] MEDS: DICLOFENAC EPOLAMINE 1.3 % PATCH TOP SCH ×2 (08:56→22:26)
[2019-05-26] MEDS: methylPREDNISolone 4 MG TAB PO SCH ×4 (09:43→22:23)
[2019-05-26] MEDS: DULoxetine 30 MG CAP (CYMBALTA) PO SCH (09:43)
[2019-05-26] MEDS: APIXABAN 2.5 MG TAB (ELIQUIS) PO SCH ×2 (09:43→22:23)
[2019-05-26] MEDS: DOCUSATE SODIUM 100 MG CAP PO SCH ×2 (09:43→22:33)
[2019-05-26] MEDS: ACETAMINOPHEN 500 MG TAB PO SCH ×3 (09:43→22:24)
[2019-05-26] MEDS: ASPIRIN 81 MG CHEW TABLET PO SCH (09:43)
[2019-05-26] MEDS: PANTOPRAZOLE 40MG TAB (PROTONIX) PO SCH (09:44)
[2019-05-26] MEDS: lisinopriL 10 MG TAB PO SCH (09:44)
[2019-05-26] MEDS: METOPROLOL SUCC *XL* 25MG TAB (TopROL *XL*) PO SCH (09:44)
[2019-05-26] MEDS: PRESERVISION PO SCH (09:45)
[2019-05-26] MEDS: LIDOCAINE 5% (LIDODERM) PATCH TD SCH (09:51)
--- NOTE | 2019-05-26 10:20 | IPNPDOC ---
PM&R Progress Note DATE OF SERVICE: May 26, 2019 [employer] Progress Note Subjective: Patient seen with family in the room, she has her brace and arch support. She reports she feels she is getting stronger, but slowly. REVIEW OF SYSTEMS: The following is a completed review of systems and has been reviewed. Review of systems otherwise unremarkable. PAIN: Patient self reports left wrist pain and left knee pain EYES: No recent vision changes EARS, NOSE, & THROAT:+dysphagia CARDIOVASCULAR: Denies chest pain or palpitations PULMONARY: Denies shortness of breath GASTROINTESTINAL: +loose stools GENITOURINARY: denies dysuria MUSCULOSKELETAL: left knee and wrist pain NEUROLOGICAL:LUE and LLE paresis SKIN: no rash PSYCHIATRIC: Unremarkable All other review of systems found to be negative. PHYSICAL EXAMINATION: VITAL SIGNS: Please see below. GENERAL: Pleasant and cooperative. No acute distress. HEENT: PERRL. Extraocular movements intact. Clear conjunctiva, no facial droop CARDIOVASCULAR:Irregular rate and rhythm. No murmurs, rubs, or gallops LUNGS: Clear to auscultation bilaterally. No wheezes. No rhonchi ABDOMEN: Soft, nontender, nondistended. Positive bowel sounds. Normal active bowel sounds NEUROLOGICAL: Alert and oriented times three, able to give detailed story Cranial nerves II through XII grossly intact. Sensation grossly intact in all 4 limbs (-) babinki bilat EXTREMITIES: 5\5 strength right upper extremities. 4/5 LUE, 4/5 LLE, 5\5 strength right lower extremity. 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 PLAN: 1. Rehab: PT- strengthen/stretch/maintain ROM bilat LE- advance gait training prn, difficulty putting weight through left knee, although able to walk OT-strengthen/stretch/maintain ROM bilat UE, work on ADL management [employer]- evaluate for cognitive impairments and treat prn, dysphagia, advance diet when safe- [facility] [place] 05/24/19 with upgrade to thins 2. 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 Cardio: pmh Afib and HTN on elquis and beta-rajesh, adjusted dosing and holding parameters for better BP control, c/u DIPESH-I and increase metoprolol today -medicine consulted to assist in management -HLD- statin 4. Resp: encourage incentive spirometry 5. : monitor PVRS 6. DVT ppx: teds and eliquis 7. GI ppx: protonix 8. Ortho: left knee effusion and left wrist swelling both improving, Xrays both negative for fracture, positive for arthritic changes, counseled patient and family on danger of restarting Diclofenac given recent stroke for its cardiovascular effects and for GI bleed risk while on ASA and eliquis, c/u Diclofenac patch -c/u Medrol dose pack and Cymbalta, pain improving 9. Dispo: 06/07/19 to home Allergies Coded Allergies: No Known Allergies (Unverified , 05/14/19) Vital Signs Vital Signs Date Time Temp Pulse Resp B/P (MAP) Pulse Ox O2 Delivery O2 Flow Rate FiO2 05/26/19 09:44 132/75 05/26/19 09:44 72 05/26/19 04:00 97.1 18 97 Current Medications Current Medications Current Medications Medications (Trade) Dose Ordered Sig/Didier Route PRN Reason Start Time Stop Time Status Last Admin Dose Admin Acetaminophen (Tylenol Tab) 650 mg Q4HP PRN PO MILD PAIN (PS 1-4) 05/18/19 13:45 05/21/19 13:38 DC Acetaminophen (Tylenol Tab) 1,000 mg TID PO 05/21/19 16:00 05/26/19 09:43 Acetaminophen (Tylenol Tab) 1,000 mg TID PO 05/21/19 16:00 UNV Apixaban (Eliquis) 2.5 mg BID PO 05/18/19 21:00 05/26/19 09:43 Aspirin (Aspirin Chewable) 81 mg DAILY PO 05/19/19 09:00 05/26/19 09:43 Atorvastatin Calcium (Lipitor) 40 mg QHS PO 05/18/19 21:00 05/25/19 20:35 Bisacodyl (Dulcolax Suppository) 10 mg DAILYPRN PRN ME CONSTIPATION 05/18/19 13:45 Diclofenac Epolamine (Flector 1.3%) 1 patch Q12H TOP 05/23/19 09:00 05/26/19 08:56 Docusate Sodium (Colace) 100 mg BID PO 05/18/19 21:00 05/26/19 09:43 Duloxetine HCl (Cymbalta) 30 mg DAILY PO 05/23/19 09:00 05/26/19 09:43 Fluoxetine HCl (PROzac) 20 mg DAILY PO 05/19/19 09:00 05/23/19 14:41 DC 05/23/19 09:31 Home Med (Med Rec Complete!) ASDIRECTED XX 05/18/19 16:00 05/18/19 16:00 DC Lidocaine (Lidoderm Patch) 1 patch DAILY TD 05/24/19 09:00 05/26/19 09:51 Lidocaine (Lidoderm Patch) 2 patch DAILY TD 05/19/19 09:00 05/23/19 14:54 DC 05/23/19 09:31 Lisinopril (Prinivil) 10 mg DAILY PO 05/25/19 09:00 05/26/19 09:44 Magnesium Hydroxide (Milk Of Magnesia) 30 ml DAILYPRN PRN PO CONSTIPATION 05/18/19 13:45 Methylprednisolone (Medrol) 4 mg 6XD PO 05/24/19 12:00 05/24/19 21:01 DC 05/24/19 20:41 Methylprednisolone (Medrol) 4 mg Taper QID PO 05/25/19 06:00 05/30/19 05:59 05/26/19 09:43 Metoprolol Succinate (TopROL XL) 25 mg DAILY PO 05/24/19 09:00 05/26/19 10:19 DC 05/26/19 09:44 Metoprolol Succinate (TopROL XL) 50 mg DAILY PO 05/27/19 09:00 UNV Metoprolol Tartrate (Lopressor) 25 mg BID PO 05/18/19 21:00 05/19/19 09:30 DC 05/19/19 08:22 Metoprolol Tartrate (Lopressor) 50 mg BID PO 05/19/19 21:00 05/23/19 14:41 DC 05/22/19 20:15 Non-Formulary Medication ( See Comment Field Below ) REMOVE LIDODERM PATCH DAILY@21 XX 05/19/19 21:00 05/25/19 20:37 Oxymetazoline HCl (Afrin) 2 spray ASDIRECTED PRN NA SEE LABEL COMMENTS 05/24/19 10:00 05/24/19 11:21 DC Pantoprazole Sodium (Protonix) 40 mg DAILY PO 05/19/19 09:00 05/26/19 09:44 Patient Own Medication (Patient'S Own Med) PresverVision 1 gelcap po daily DAILY PO 05/21/19 09:00 05/26/19 09:45 Senna (Senokot) 1 tab QHS PO 05/18/19 21:00 05/22/19 20:08 Trazodone HCl (Desyrel) 25 mg QHSP PRN PO INSOMNIA 05/18/19 13:45 PAULA JOHNSON MD May 26, 2019 10:20
--- NOTE | 2019-05-26 10:54 | IPNPDOC ---
Text Note Date of Service The patient was seen on 05/26/19. NOTE Subjective: Patient is an 88-year-old female with PMHx of Atrial fibrillation (on Eliquis) - s/p ablation, HTN, DLP, who presents to the hospital with slurred speech. Patient was admitted to the medical floor for acute CVA. Patient was o utside the TPA window upon arrival / was also not a candidate because of anti- coagulation. Patient was ultimately transferred to ARU on 05/18/2019 for continued rehabilitation. Patient was seen and examined while she was at the gym. She reports that she st ill expressing some left leg aching. She denies any chest pain, shortness breath or palpitations. Has been working well with physical therapy. 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 fib - s/p ablation - c/w full anticoagulation with Eliquis HTN - BP is better controlled - c/w adjusted dose of Metoprolol succinate and Lisinopril Left hip pain - XR are negative for fracture - c/w Pain control as per ARU - c/w PT / OT Mood disorder - c/w Duloxetine and Trazodone GI prophylaxis - c/w Protonix DVT prophylaxis - c/w full anticoagulation with Eliquis VS,Fishbone, I+O VS, Fishbone, I+O Vital Signs Date Time Temp Pulse Resp B/P (MAP) Pulse Ox O2 Delivery O2 Flow Rate FiO2 05/26/19 09:44 132/75 05/26/19 09:44 72 05/26/19 04:00 97.1 18 97 I&O- Last 24 Hours up to 6 AM 05/26/19 06:00 Intake Total 1140 ml Balance 1140 ml CAROLANN LUCAS MD May 26, 2019 10:54
[2019-05-26 14:00] VITALS: BP 136/74
[2019-05-26 20:00] VITALS: BP 167/77
[2019-05-26] MEDS: ATORVASTATIN 20 MG TAB PO SCH (22:23)
[2019-05-26] MEDS: SENNA 8.6 MG TAB (SENOKOT) PO SCH (22:23)
[2019-05-26] MEDS: **NOTE PATIENT COMMENT** MISC XX SCH (22:26)
[2019-05-26 22:30] VITALS: BP 142/70
[2019-05-27 06:00] VITALS: BP 180/85
[2019-05-27 06:48] VITALS: BP 168/70
[2019-05-27] MEDS: DICLOFENAC EPOLAMINE 1.3 % PATCH TOP SCH ×2 (10:25→20:15)
[2019-05-27] MEDS: APIXABAN 2.5 MG TAB (ELIQUIS) PO SCH ×2 (10:26→20:16)
[2019-05-27] MEDS: ACETAMINOPHEN 500 MG TAB PO SCH ×3 (10:26→20:16)
[2019-05-27] MEDS: DULoxetine 30 MG CAP (CYMBALTA) PO SCH (10:26)
[2019-05-27] MEDS: DOCUSATE SODIUM 100 MG CAP PO SCH ×2 (10:26→20:15)
[2019-05-27] MEDS: methylPREDNISolone 4 MG TAB PO SCH ×3 (10:26→20:16)
[2019-05-27] MEDS: PANTOPRAZOLE 40MG TAB (PROTONIX) PO SCH (10:26)
[2019-05-27] MEDS: ASPIRIN 81 MG CHEW TABLET PO SCH (10:26)
[2019-05-27] MEDS: LIDOCAINE 5% (LIDODERM) PATCH TD SCH (10:26)
[2019-05-27] MEDS: lisinopriL 10 MG TAB PO SCH (10:30)
[2019-05-27] MEDS: METOPROLOL SUCC *XL* 25MG TAB (TopROL *XL*) PO SCH (10:31)
[2019-05-27] MEDS: PRESERVISION PO SCH (10:32)
[2019-05-27] MEDS: ATORVASTATIN 20 MG TAB PO SCH (20:15)
[2019-05-27] MEDS: **NOTE PATIENT COMMENT** MISC XX SCH (20:16)
[2019-05-27] MEDS: SENNA 8.6 MG TAB (SENOKOT) PO SCH (20:16)
[2019-05-27 22:00] VITALS: BP 150/68
[2019-05-28 06:00] VITALS: BP 186/77
--- NOTE | 2019-05-28 09:34 | IPNPDOC ---
Text Note Date of Service The patient was seen on 05/28/19. NOTE Subjective: Patient is an 88-year-old female with PMHx of Atrial fibrillation (on Eliquis) - s/p ablation, HTN, DLP, who presents to the hospital with slurred speech. Patient was admitted to the medical floor for acute CVA. Patient was ou tside the TPA window upon arrival / was also not a candidate because of anti- coagulation. Patient was ultimately transferred to ARU on 05/18/2019 for continued rehabilitation. Patient was seen and examined at the bedside. Currently, patient reports that ov samiaight she had woken up at 4 AM and was slightly disoriented to place, however, was able to reorient herself. . She denies chest pain, shortness of breath or palpitations. She does still report mild left leg aching. 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 fib - s/p ablation - c/w full anticoagulation with Eliquis HTN - BP moderately elevated - c/w adjusted dose of Metoprolol succinate and Lisinopril - Patient blood pressure appears to be elevated in the morning; will adjust timing of lisinopril to be given in the evening to help with morning blood pressures Left hip pain - XR are negative for fracture - c/w Pain control as per ARU - c/w PT / OT Mood disorder - c/w Duloxetine and Trazodone GI prophylaxis - c/w Protonix DVT prophylaxis - c/w full anticoagulation with Eliquis VS,Fishbone, I+O VS, Fishbone, I+O Vital Signs Date Time Temp Pulse Resp B/P (MAP) Pulse Ox O2 Delivery O2 Flow Rate FiO2 05/28/19 06:00 97.4 50 17 186/77 (113) 92 I&O- Last 24 Hours up to 6 AM 05/28/19 06:00 Intake Total 720 ml Balance 720 ml CAROLANN LUCAS MD May 28, 2019 09:34
[2019-05-28] MEDS: DULoxetine 30 MG CAP (CYMBALTA) PO SCH (10:04)
[2019-05-28] MEDS: ACETAMINOPHEN 500 MG TAB PO SCH ×3 (10:04→22:20)
[2019-05-28] MEDS: PANTOPRAZOLE 40MG TAB (PROTONIX) PO SCH (10:04)
[2019-05-28] MEDS: DICLOFENAC EPOLAMINE 1.3 % PATCH TOP SCH ×2 (10:04→22:18)
[2019-05-28] MEDS: ASPIRIN 81 MG CHEW TABLET PO SCH (10:04)
[2019-05-28] MEDS: methylPREDNISolone 4 MG TAB PO SCH ×2 (10:04→22:21)
[2019-05-28] MEDS: DOCUSATE SODIUM 100 MG CAP PO SCH ×2 (10:04→22:20)
[2019-05-28] MEDS: APIXABAN 2.5 MG TAB (ELIQUIS) PO SCH ×2 (10:04→22:21)
[2019-05-28] MEDS: LIDOCAINE 5% (LIDODERM) PATCH TD SCH (10:05)
[2019-05-28] MEDS: METOPROLOL SUCC *XL* 25MG TAB (TopROL *XL*) PO SCH (10:07)
[2019-05-28] MEDS: PRESERVISION PO SCH (10:09)
[2019-05-28 14:00] VITALS: BP 142/79
[2019-05-28 20:00] VITALS: BP 150/56
[2019-05-28] MEDS: **NOTE PATIENT COMMENT** MISC XX SCH (21:00)
[2019-05-28] MEDS: ATORVASTATIN 20 MG TAB PO SCH (22:19)
[2019-05-28] MEDS: lisinopriL 10 MG TAB PO SCH (22:20)
[2019-05-28] MEDS: SENNA 8.6 MG TAB (SENOKOT) PO SCH (22:21)
[2019-05-29 06:01] VITALS: BP 135/68
[2019-05-29] MEDS: PANTOPRAZOLE 40MG TAB (PROTONIX) PO SCH (10:19)
[2019-05-29] MEDS: LIDOCAINE 5% (LIDODERM) PATCH TD SCH (10:19)
[2019-05-29] MEDS: DOCUSATE SODIUM 100 MG CAP PO SCH ×2 (10:19→21:26)
[2019-05-29] MEDS: DICLOFENAC EPOLAMINE 1.3 % PATCH TOP SCH ×2 (10:19→21:27)
[2019-05-29] MEDS: METOPROLOL SUCC *XL* 25MG TAB (TopROL *XL*) PO SCH (10:20)
[2019-05-29] MEDS: ASPIRIN 81 MG CHEW TABLET PO SCH (10:20)
[2019-05-29] MEDS: methylPREDNISolone 4 MG TAB PO SCH (10:20)
[2019-05-29] MEDS: APIXABAN 2.5 MG TAB (ELIQUIS) PO SCH ×2 (10:20→21:27)
[2019-05-29] MEDS: DULoxetine 30 MG CAP (CYMBALTA) PO SCH (10:20)
[2019-05-29] MEDS: PRESERVISION PO SCH (10:25)
[2019-05-29] MEDS: ACETAMINOPHEN 500 MG TAB PO SCH ×3 (10:25→21:26)
[2019-05-29 14:00] VITALS: BP 132/61
[2019-05-29 20:00] VITALS: BP 146/67
[2019-05-29] MEDS: lisinopriL 10 MG TAB PO SCH (21:26)
[2019-05-29] MEDS: SENNA 8.6 MG TAB (SENOKOT) PO SCH (21:26)
[2019-05-29] MEDS: ATORVASTATIN 20 MG TAB PO SCH (21:26)
[2019-05-29] MEDS: **NOTE PATIENT COMMENT** MISC XX SCH (21:44)
[2019-05-30 05:30] VITALS: BP 182/74
[2019-05-30] MEDS: DULoxetine 30 MG CAP (CYMBALTA) PO SCH (08:40)
[2019-05-30] MEDS: DOCUSATE SODIUM 100 MG CAP PO SCH ×2 (08:40→21:23)
[2019-05-30] MEDS: METOPROLOL SUCC *XL* 25MG TAB (TopROL *XL*) PO SCH (08:41)
[2019-05-30] MEDS: ASPIRIN 81 MG CHEW TABLET PO SCH (08:41)
[2019-05-30] MEDS: PANTOPRAZOLE 40MG TAB (PROTONIX) PO SCH (08:42)
[2019-05-30] MEDS: ACETAMINOPHEN 500 MG TAB PO SCH ×3 (08:42→21:23)
[2019-05-30] MEDS: APIXABAN 2.5 MG TAB (ELIQUIS) PO SCH ×2 (08:42→21:23)
[2019-05-30] MEDS: DICLOFENAC EPOLAMINE 1.3 % PATCH TOP SCH ×2 (08:42→21:22)
[2019-05-30] MEDS: LIDOCAINE 5% (LIDODERM) PATCH TD SCH (08:42)
[2019-05-30] MEDS: PRESERVISION PO SCH (08:43)
[2019-05-30 11:40] VITALS: BP 136/62
[2019-05-30 12:17] VITALS: BP 160/78
[2019-05-30 14:00] VITALS: BP 146/66
--- NOTE | 2019-05-30 16:30 | IPNPDOC ---
PM&R Progress Note DATE OF SERVICE: May 30, 2019 [employer] Progress Note Subjective: Patient seen in her room and is disappointed she isn't walking further and recovering more quickly. Her pain in her left knee is better. REVIEW OF SYSTEMS: The following is a completed review of systems and has been reviewed. Review of systems otherwise unremarkable. PAIN: Patient self reports left wrist pain and left knee pain EYES: No recent vision changes EARS, NOSE, & THROAT:+dysphagia CARDIOVASCULAR: Denies chest pain or palpitations PULMONARY: Denies shortness of breath GASTROINTESTINAL: no diarrhea/constipation GENITOURINARY: denies dysuria MUSCULOSKELETAL: left knee and wrist pain NEUROLOGICAL:LUE and LLE paresis SKIN: no rash PSYCHIATRIC: Unremarkable All other review of systems found to be negative. PHYSICAL EXAMINATION: VITAL SIGNS: Please see below. GENERAL: Pleasant and cooperative. No acute distress. HEENT: PERRL. Extraocular movements intact. Clear conjunctiva, no facial droop CARDIOVASCULAR:Irregular rate and rhythm. No murmurs, rubs, or gallops LUNGS: Clear to auscultation bilaterally. No wheezes. No rhonchi ABDOMEN: Soft, nontender, nondistended. Positive bowel sounds. Normal active bowel sounds NEUROLOGICAL: Alert and oriented times three, able to give detailed story Cranial nerves II through XII grossly intact. Sensation grossly intact in all 4 limbs (-) babinki bilat EXTREMITIES: 5\5 strength right upper extremities. 4/5 LUE, 4/5 LLE, 5\5 strength right lower extremity. 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 PLAN: 1. Rehab: PT- strengthen/stretch/maintain ROM bilat LE- advance gait training prn, difficulty putting weight through left knee, although able to walk OT-strengthen/stretch/maintain ROM bilat UE, work on ADL management [employer]- evaluate for cognitive impairments and treat prn, dysphagia, advance diet when safe- [facility] [place] 05/24/19 with upgrade to thins 2. 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 Cardio: pmh Afib and HTN on elquis and beta-rajesh, c/u lisinopril qHS will increase to 20mg and c/u metoprolol 50mg -medicine consulted to assist in management, recs appreciated -HLD- statin 4. Resp: encourage incentive spirometry 5. : monitor PVRS 6. DVT ppx: teds and eliquis 7. GI ppx: protonix 8. Ortho: left knee effusion and left wrist swelling both improving, Xrays both negative for fracture, positive for arthritic changes, counseled patient and family on danger of restarting Diclofenac given recent stroke for its cardiovascular effects and for GI bleed risk while on ASA and eliquis, c/u Diclofenac patch -c/u Medrol dose pack and Cymbalta, pain improving 9. Dispo: 06/07/19 to home Allergies Coded Allergies: No Known Allergies (Unverified , 05/14/19) Vital Signs Vital Signs Date Time Temp Pulse Resp B/P (MAP) Pulse Ox O2 Delivery O2 Flow Rate FiO2 05/30/19 14:00 97.6 54 16 146/66 (92) 96 Current Medications Current Medications Current Medications Medications (Trade) Dose Ordered Sig/Didier Route PRN Reason Start Time Stop Time Status Last Admin Dose Admin Acetaminophen (Tylenol Tab) 650 mg Q4HP PRN PO MILD PAIN (PS 1-4) 05/18/19 13:45 05/21/19 13:38 DC Acetaminophen (Tylenol Tab) 1,000 mg TID PO 05/21/19 16:00 05/30/19 08:42 Acetaminophen (Tylenol Tab) 1,000 mg TID PO 05/21/19 16:00 UNV Apixaban (Eliquis) 2.5 mg BID PO 05/18/19 21:00 05/30/19 08:42 Aspirin (Aspirin Chewable) 81 mg DAILY PO 05/19/19 09:00 05/30/19 08:41 Atorvastatin Calcium (Lipitor) 40 mg QHS PO 05/18/19 21:00 05/29/19 21:26 Bisacodyl (Dulcolax Suppository) 10 mg DAILYPRN PRN ID CONSTIPATION 05/18/19 13:45 Diclofenac Epolamine (Flector 1.3%) 1 patch Q12H TOP 05/23/19 09:00 05/30/19 08:42 Docusate Sodium (Colace) 100 mg BID PO 05/18/19 21:00 05/30/19 08:40 Duloxetine HCl (Cymbalta) 30 mg DAILY PO 05/23/19 09:00 05/30/19 08:40 Fluoxetine HCl (PROzac) 20 mg DAILY PO 05/19/19 09:00 05/23/19 14:41 DC 05/23/19 09:31 Home Med (Med Rec Complete!) ASDIRECTED XX 05/18/19 16:00 05/18/19 16:00 DC Lidocaine (Lidoderm Patch) 1 patch DAILY TD 05/24/19 09:00 05/30/19 08:42 Lidocaine (Lidoderm Patch) 2 patch DAILY TD 05/19/19 09:00 05/23/19 14:54 DC 05/23/19 09:31 Lisinopril (Prinivil) 10 mg DAILY PO 05/25/19 09:00 05/28/19 09:33 DC 05/27/19 10:30 Lisinopril (Prinivil) 10 mg QHS PO 05/28/19 21:00 05/30/19 12:36 DC 05/29/19 21:26 Lisinopril (Prinivil) 20 mg QHS PO 05/30/19 21:00 Magnesium Hydroxide (Milk Of Magnesia) 30 ml DAILYPRN PRN PO CONSTIPATION 05/18/19 13:45 Methylprednisolone (Medrol) 4 mg 6XD PO 05/24/19 12:00 05/24/19 21:01 DC 05/24/19 20:41 Methylprednisolone (Medrol) 4 mg Taper DAILY PO 05/25/19 06:00 05/30/19 05:59 DC 05/29/19 10:20 Metoprolol Succinate (TopROL XL) 25 mg DAILY PO 05/24/19 09:00 05/26/19 10:19 DC 05/26/19 09:44 Metoprolol Succinate (TopROL XL) 50 mg DAILY PO 05/27/19 09:00 05/30/19 08:41 Metoprolol Tartrate (Lopressor) 25 mg BID PO 05/18/19 21:00 05/19/19 09:30 DC 05/19/19 08:22 Metoprolol Tartrate (Lopressor) 50 mg BID PO 05/19/19 21:00 05/23/19 14:41 DC 05/22/19 20:15 Non-Formulary Medication ( See Comment Field Below ) REMOVE LIDODERM PATCH DAILY@ XX 05/19/19 21:00 05/29/19 21:44 Oxymetazoline HCl (Afrin) 2 spray ASDIRECTED PRN NA SEE LABEL COMMENTS 05/24/19 10:00 05/24/19 11:21 DC Pantoprazole Sodium (Protonix) 40 mg DAILY PO 05/19/19 09:00 05/30/19 08:42 Patient Own Medication (Patient'S Own Med) PresverVision 1 gelcap po daily DAILY PO 05/21/19 09:00 05/30/19 08:43 Senna (Senokot) 1 tab QHS PO 05/18/19 21:00 05/29/19 21:26 Trazodone HCl (Desyrel) 25 mg QHSP PRN PO INSOMNIA 05/18/19 13:45 PAULA JOHNSON MD May 30, 2019 16:30
[2019-05-30 20:00] VITALS: BP 146/78
[2019-05-30] MEDS: lisinopriL 10 MG TAB PO SCH (21:23)
[2019-05-30] MEDS: ATORVASTATIN 20 MG TAB PO SCH (21:23)
[2019-05-30] MEDS: SENNA 8.6 MG TAB (SENOKOT) PO SCH (21:23)
[2019-05-31 06:00] VITALS: BP 153/67
[2019-05-31] MEDS: DOCUSATE SODIUM 100 MG CAP PO SCH ×2 (10:07→20:27)
[2019-05-31] MEDS: PANTOPRAZOLE 40MG TAB (PROTONIX) PO SCH (10:07)
[2019-05-31] MEDS: ACETAMINOPHEN 500 MG TAB PO SCH ×3 (10:08→20:27)
[2019-05-31] MEDS: DICLOFENAC EPOLAMINE 1.3 % PATCH TOP SCH ×2 (10:08→20:28)
[2019-05-31] MEDS: METOPROLOL SUCC *XL* 25MG TAB (TopROL *XL*) PO SCH (10:08)
[2019-05-31] MEDS: DULoxetine 30 MG CAP (CYMBALTA) PO SCH (10:08)
[2019-05-31] MEDS: APIXABAN 2.5 MG TAB (ELIQUIS) PO SCH ×2 (10:09→20:27)
[2019-05-31] MEDS: ASPIRIN 81 MG CHEW TABLET PO SCH (10:09)
[2019-05-31] MEDS: PRESERVISION PO SCH (10:09)
--- NOTE | 2019-05-31 12:50 | IPNPDOC ---
PM&R Progress Note DATE OF SERVICE: May 31, 2019 [employer] Progress Note Subjective: Patient seen ambulating in OT with antalgic gait, expressing fear to put weight through her left knee due to a feeling of instability. He knee brace was repositioned and heel lift placed with modest resolution in her feeling of instability. REVIEW OF SYSTEMS: The following is a completed review of systems and has been reviewed. Review of systems otherwise unremarkable. PAIN: Patient self reports left wrist pain and left knee pain EYES: No recent vision changes EARS, NOSE, & THROAT:+dysphagia CARDIOVASCULAR: Denies chest pain or palpitations PULMONARY: Denies shortness of breath GASTROINTESTINAL: no diarrhea/constipation GENITOURINARY: denies dysuria MUSCULOSKELETAL: left knee and wrist pain NEUROLOGICAL:LUE and LLE paresis SKIN: no rash PSYCHIATRIC: Unremarkable All other review of systems found to be negative. PHYSICAL EXAMINATION: VITAL SIGNS: Please see below. GENERAL: Pleasant and cooperative. No acute distress. HEENT: PERRL. Extraocular movements intact. Clear conjunctiva, no facial droop CARDIOVASCULAR:Irregular rate and rhythm. No murmurs, rubs, or gallops LUNGS: Clear to auscultation bilaterally. No wheezes. No rhonchi ABDOMEN: Soft, nontender, nondistended. Positive bowel sounds. Normal active bowel sounds NEUROLOGICAL: Alert and oriented times three, able to give detailed story Cranial nerves II through XII grossly intact. Sensation grossly intact in all 4 limbs (-) babinki bilat EXTREMITIES: 5\5 strength right upper extremities. 4/5 LUE, 4/5 LLE, 5\5 strength right lower extremity. 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 PLAN: 1. Rehab: PT- strengthen/stretch/maintain ROM bilat LE- advance gait training prn, difficulty putting weight through left knee, although able to walk OT-strengthen/stretch/maintain ROM bilat UE, work on ADL management [employer]ED N[employer]SE- evaluate for cognitive impairments and treat prn, dysphagia, advance diet when safe- [facility] 05/24/19 with upgrade to thins 2. 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 Cardio: pmh Afib and HTN on elquis and beta-rajesh, c/u lisinopril qHS will increase to 20mg and c/u metoprolol 50mg -medicine consulted to assist in management, recs appreciated -HLD- statin 4. Resp: encourage incentive spirometry 5. : monitor PVRS 6. DVT ppx: teds and eliquis 7. GI ppx: protonix 8. Ortho: left knee effusion and left wrist swelling both improving, Xrays both negative for fracture, positive for arthritic changes, counseled patient and family on danger of restarting Diclofenac given recent stroke for its cardiovascular effects and for GI bleed risk while on ASA and eliquis, c/u Dic lofenac patch -s/p Medrol dose pack, will increase Cymbalta, pain improving 9. Dispo: 06/07/19 to home Allergies Coded Allergies: No Known Allergies (Unverified , 05/14/19) Vital Signs Vital Signs Date Time Temp Pulse Resp B/P (MAP) Pulse Ox O2 Delivery O2 Flow Rate FiO2 05/31/19 10:08 64 153/67 05/31/19 06:00 97.8 18 95 Current Medications Current Medications Current Medications Medications (Trade) Dose Ordered Sig/Didier Route PRN Reason Start Time Stop Time Status Last Admin Dose Admin Acetaminophen (Tylenol Tab) 650 mg Q4HP PRN PO MILD PAIN (PS 1-4) 05/18/19 13:45 05/21/19 13:38 DC Acetaminophen (Tylenol Tab) 1,000 mg TID PO 05/21/19 16:00 05/31/19 10:08 Acetaminophen (Tylenol Tab) 1,000 mg TID PO 05/21/19 16:00 UNV Apixaban (Eliquis) 2.5 mg BID PO 05/18/19 21:00 05/31/19 10:09 Aspirin (Aspirin Chewable) 81 mg DAILY PO 05/19/19 09:00 05/31/19 10:09 Atorvastatin Calcium (Lipitor) 40 mg QHS PO 05/18/19 21:00 05/30/19 21:23 Bisacodyl (Dulcolax Suppository) 10 mg DAILYPRN PRN AL CONSTIPATION 05/18/19 13:45 Diclofenac Epolamine (Flector 1.3%) 1 patch Q12H TOP 05/23/19 09:00 05/31/19 10:08 Docusate Sodium (Colace) 100 mg BID PO 05/18/19 21:00 05/31/19 10:07 Duloxetine HCl (Cymbalta) 30 mg DAILY PO 05/23/19 09:00 05/31/19 10:08 Fluoxetine HCl (PROzac) 20 mg DAILY PO 05/19/19 09:00 05/23/19 14:41 DC 05/23/19 09:31 Home Med (Med Rec Complete!) ASDIRECTED XX 05/18/19 16:00 05/18/19 16:00 DC Lidocaine (Lidoderm Patch) 1 patch DAILY TD 05/24/19 09:00 05/30/19 16:28 DC 05/30/19 08:42 Lidocaine (Lidoderm Patch) 2 patch DAILY TD 05/19/19 09:00 05/23/19 14:54 DC 05/23/19 09:31 Lisinopril (Prinivil) 10 mg DAILY PO 05/25/19 09:00 05/28/19 09:33 DC 05/27/19 10:30 Lisinopril (Prinivil) 10 mg QHS PO 05/28/19 21:00 05/30/19 12:36 DC 05/29/19 21:26 Lisinopril (Prinivil) 20 mg QHS PO 05/30/19 21:00 05/30/19 21:23 Magnesium Hydroxide (Milk Of Magnesia) 30 ml DAILYPRN PRN PO CONSTIPATION 05/18/19 13:45 Methylprednisolone (Medrol) 4 mg 6XD PO 05/24/19 12:00 05/24/19 21:01 DC 05/24/19 20:41 Methylprednisolone (Medrol) 4 mg Taper DAILY PO 05/25/19 06:00 05/30/19 05:59 DC 05/29/19 10:20 Metoprolol Succinate (TopROL XL) 25 mg DAILY PO 05/24/19 09:00 05/26/19 10:19 DC 05/26/19 09:44 Metoprolol Succinate (TopROL XL) 50 mg DAILY PO 05/27/19 09:00 05/31/19 10:08 Metoprolol Tartrate (Lopressor) 25 mg BID PO 05/18/19 21:00 05/19/19 09:30 DC 05/19/19 08:22 Metoprolol Tartrate (Lopressor) 50 mg BID PO 05/19/19 21:00 05/23/19 14:41 DC 05/22/19 20:15 Non-Formulary Medication ( See Comment Field Below ) REMOVE LIDODERM PATCH DAILY@21 XX 05/19/19 21:00 05/30/19 16:29 DC 05/29/19 21:44 Oxymetazoline HCl (Afrin) 2 spray ASDIRECTED PRN NA SEE LABEL COMMENTS 05/24/19 10:00 05/24/19 11:21 DC Pantoprazole Sodium (Protonix) 40 mg DAILY PO 05/19/19 09:00 05/31/19 10:07 Patient Own Medication (Patient'S Own Med) PresverVision 1 gelcap po daily DAILY PO 05/21/19 09:00 05/31/19 10:09 Senna (Senokot) 1 tab QHS PO 05/18/19 21:00 05/30/19 21:23 Trazodone HCl (Desyrel) 25 mg QHSP PRN PO INSOMNIA 05/18/19 13:45 PAULA JOHNSON MD May 31, 2019 12:50
[2019-05-31 14:00] VITALS: BP 140/66
[2019-05-31] MEDS: METOPROLOL TART 25 MG TABLET PO SCH ×2 (14:00→22:00)
[2019-05-31 20:00] VITALS: BP 140/66
[2019-05-31] MEDS: ATORVASTATIN 20 MG TAB PO SCH (20:27)
[2019-05-31] MEDS: SENNA 8.6 MG TAB (SENOKOT) PO SCH (20:27)
[2019-05-31] MEDS: lisinopriL 10 MG TAB PO SCH (20:27)
[2019-06-01 04:00] VITALS: BP 136/64
[2019-06-01] MEDS: METOPROLOL TART 25 MG TABLET PO SCH (06:00)
[2019-06-01] MEDS: DICLOFENAC EPOLAMINE 1.3 % PATCH TOP SCH ×2 (09:09→20:47)
[2019-06-01] MEDS: APIXABAN 2.5 MG TAB (ELIQUIS) PO SCH ×2 (09:09→20:45)
[2019-06-01] MEDS: DULoxetine 30 MG CAP (CYMBALTA) PO SCH (09:09)
[2019-06-01] MEDS: ASPIRIN 81 MG CHEW TABLET PO SCH (09:09)
[2019-06-01] MEDS: PANTOPRAZOLE 40MG TAB (PROTONIX) PO SCH (09:09)
[2019-06-01] MEDS: DOCUSATE SODIUM 100 MG CAP PO SCH ×2 (09:09→20:46)
[2019-06-01] MEDS: PRESERVISION PO SCH (09:10)
[2019-06-01] MEDS: ACETAMINOPHEN 500 MG TAB PO SCH ×3 (09:10→20:46)
--- NOTE | 2019-06-01 10:11 | IPNPDOC ---
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 REVIEW OF SYSTEMS: The following is a completed review of systems and has been reviewed. Review of systems otherwise unremarkable. PAIN: Patient self reports left wrist pain and left knee pain EYES: No recent vision changes EARS, NOSE, & THROAT:+dysphagia CARDIOVASCULAR: Denies chest pain or palpitations PULMONARY: Denies shortness of breath GASTROINTESTINAL: no diarrhea/constipation GENITOURINARY: denies dysuria MUSCULOSKELETAL: left knee and wrist pain NEUROLOGICAL:LUE and LLE paresis SKIN: no rash PSYCHIATRIC: Unremarkable All other review of systems found to be negative. PHYSICAL EXAMINATION: VITAL SIGNS: Please see below. GENERAL: Pleasant and cooperative. No acute distress. HEENT: PERRL. Extraocular movements intact. Clear conjunctiva, no facial droop CARDIOVASCULAR:Irregular rate and rhythm. No murmurs, rubs, or gallops LUNGS: Clear to auscultation bilaterally. No wheezes. No rhonchi ABDOMEN: Soft, nontender, nondistended. Positive bowel sounds. Normal active bowel sounds NEUROLOGICAL: Alert and oriented times three, able to give detailed story Cranial nerves II through XII grossly intact. Sensation grossly intact in all 4 limbs (-) babinki bilat EXTREMITIES: 5\5 strength right upper extremities. 4/5 LUE, 4/5 LLE, 5\5 strength right lower extremity. 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 PLAN: 1. 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 Cardio: pmh Afib and HTN on elquis and beta-rajesh, c/u lisinopril qHS will increase to 20mg and c/u metoprolol 25mg q8h -medicine consulted to assist in management, recs appreciated -HLD- statin 4. Resp: encourage incentive spirometry 5. : monitor PVRS 6. DVT ppx: teds and eliquis 7. GI ppx: protonix 8. Ortho: left knee effusion and left wrist swelling both improving, Xrays both negative for fracture, positive for arthritic changes, counseled patient and family on danger of restarting Diclofenac given recent stroke for its cardiovascular effects and for GI bleed risk while on ASA and eliquis, c/u Diclofenac patch -s/p Medrol dose pack, increased Cymbalta dosing at 60mg daily, pain improving 9. Dispo: 06/07/19 to home Allergies Coded Allergies: No Known Allergies (Unverified , 05/14/19) Vital Signs Vital Signs Date Time Temp Pulse Resp B/P (MAP) Pulse Ox O2 Delivery O2 Flow Rate FiO2 06/01/19 06:00 58 136/64 06/01/19 04:00 96.9 17 97 Current Medications Current Medications Current Medications Medications (Trade) Dose Ordered Sig/Didier Route PRN Reason Start Time Stop Time Status Last Admin Dose Admin Acetaminophen (Tylenol Tab) 650 mg Q4HP PRN PO MILD PAIN (PS 1-4) 05/18/19 13:45 05/21/19 13:38 DC Acetaminophen (Tylenol Tab) 1,000 mg TID PO 05/21/19 16:00 06/01/19 09:10 Acetaminophen (Tylenol Tab) 1,000 mg TID PO 05/21/19 16:00 UNV Apixaban (Eliquis) 2.5 mg BID PO 05/18/19 21:00 06/01/19 09:09 Aspirin (Aspirin Chewable) 81 mg DAILY PO 05/19/19 09:00 06/01/19 09:09 Atorvastatin Calcium (Lipitor) 40 mg QHS PO 05/18/19 21:00 05/31/19 20:27 Bisacodyl (Dulcolax Suppository) 10 mg DAILYPRN PRN [place] CONSTIPATION 05/18/19 13:45 Diclofenac Epolamine (Flector 1.3%) 1 patch Q12H TOP 05/23/19 09:00 06/01/19 09:09 Docusate Sodium (Colace) 100 mg BID PO 05/18/19 21:00 06/01/19 09:09 Duloxetine HCl (Cymbalta) 30 mg DAILY PO 05/23/19 09:00 05/31/19 12:52 DC 05/31/19 10:08 Duloxetine HCl (Cymbalta) 60 mg DAILY PO 06/01/19 09:00 06/01/19 09:09 Fluoxetine HCl (PROzac) 20 mg DAILY PO 05/19/19 09:00 05/23/19 14:41 DC 05/23/19 09:31 Home Med (Med Rec Complete!) ASDIRECTED XX 05/18/19 16:00 05/18/19 16:00 DC Lidocaine (Lidoderm Patch) 1 patch DAILY TD 05/24/19 09:00 05/30/19 16:28 DC 05/30/19 08:42 Lidocaine (Lidoderm Patch) 2 patch DAILY TD 05/19/19 09:00 05/23/19 14:54 DC 05/23/19 09:31 Lisinopril (Prinivil) 10 mg DAILY PO 05/25/19 09:00 05/28/19 09:33 DC 05/27/19 10:30 Lisinopril (Prinivil) 10 mg QHS PO 05/28/19 21:00 05/30/19 12:36 DC 05/29/19 21:26 Lisinopril (Prinivil) 20 mg QHS PO 05/30/19 21:00 05/31/19 20:27 Magnesium Hydroxide (Milk Of Magnesia) 30 ml DAILYPRN PRN PO CONSTIPATION 05/18/19 13:45 Methylprednisolone (Medrol) 4 mg 6XD PO 05/24/19 12:00 05/24/19 21:01 DC 05/24/19 20:41 Methylprednisolone (Medrol) 4 mg Taper DAILY PO 05/25/19 06:00 05/30/19 05:59 DC 05/29/19 10:20 Metoprolol Succinate (TopROL XL) 25 mg DAILY PO 05/24/19 09:00 05/26/19 10:19 DC 05/26/19 09:44 Metoprolol Succinate (TopROL XL) 50 mg DAILY PO 05/27/19 09:00 05/31/19 12:49 DC 05/31/19 10:08 Metoprolol Tartrate (Lopressor) 25 mg BID PO 05/18/19 21:00 05/19/19 09:30 DC 05/19/19 08:22 Metoprolol Tartrate (Lopressor) 25 mg Q8H PO 05/31/19 14:00 Metoprolol Tartrate (Lopressor) 50 mg BID PO 05/19/19 21:00 05/23/19 14:41 DC 05/22/19 20:15 Non-Formulary Medication ( See Comment Field Below ) REMOVE LIDODERM PATCH DAILY@21 XX 05/19/19 21:00 05/30/19 16:29 DC 05/29/19 21:44 Oxymetazoline HCl (Afrin) 2 spray ASDIRECTED PRN NA SEE LABEL COMMENTS 05/24/19 10:00 05/24/19 11:21 DC Pantoprazole Sodium (Protonix) 40 mg DAILY PO 05/19/19 09:00 06/01/19 09:09 Patient Own Medication (Patient'S Own Med) PresverVision 1 gelcap po daily DAILY PO 05/21/19 09:00 06/01/19 09:10 Senna (Senokot) 1 tab QHS PO 05/18/19 21:00 05/31/19 20:27 Trazodone HCl (Desyrel) 25 mg QHSP PRN PO INSOMNIA 05/18/19 13:45 PAULA JOHNSON MD Jun 01, 2019 10:11
--- NOTE | 2019-06-01 13:04 | IPNPDOC ---
Date Seen The patient was seen on 06/01/19. Progress Note Subjective: Patient tells me that she is doing quite well today. She denies lightheadedness dizziness headache or changes in her vision. She tells me she has some pain associated with her knee but otherwise she denies chest pain, shortness of breath or palpitations. 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 fib - s/p ablation, she appears to be somewhat bradycardic and although asymptomatic I will discontinue her metoprolol she is not receiving it at an adjusted dose already - Will require monitoring for any development of tachycardia however at this time this does not appear to be a problem - c/w full anticoagulation with Eliquis HTN - BP acceptable at the present time. I'm discontinuing the metoprolol which she is not receiving continue with lisinopril 20 mg by mouth continue to monitor her blood pressures and add additional agents as needed Left hip pain - XR are negative for fracture, no complaints today - c/w Pain control as per ARU - c/w PT / OT Mood disorder - c/w Duloxetine and Trazodone DVT prophylaxis - c/w full anticoagulation with Eliquis We will continue to follow along with you please vocera secure text us with any specific questions VS, I&O, 24H, Fishbone Vital Signs/I&O Vital Signs Date Time Temp Pulse Resp B/P (MAP) Pulse Ox O2 Delivery O2 Flow Rate FiO2 06/01/19 06:00 58 136/64 06/01/19 04:00 96.9 17 97 I&O- Last 24 Hours up to 6 AM 06/01/19 05:59 Intake Total 820 ml Balance 820 ml RICH POLLACK MD Jun 01, 2019 13:04
[2019-06-01 14:00] VITALS: BP 142/72
[2019-06-01] MEDS: SENNA 8.6 MG TAB (SENOKOT) PO SCH (20:46)
[2019-06-01] MEDS: lisinopriL 10 MG TAB PO SCH (20:46)
[2019-06-01] MEDS: ATORVASTATIN 20 MG TAB PO SCH (20:47)
[2019-06-01 21:35] VITALS: BP 150/69
[2019-06-02 05:57] VITALS: BP 155/81
[2019-06-02] MEDS: DOCUSATE SODIUM 100 MG CAP PO SCH ×2 (09:19→20:45)
[2019-06-02] MEDS: PRESERVISION PO SCH (09:19)
[2019-06-02] MEDS: DULoxetine 30 MG CAP (CYMBALTA) PO SCH (09:19)
[2019-06-02] MEDS: ASPIRIN 81 MG CHEW TABLET PO SCH (09:19)
[2019-06-02] MEDS: APIXABAN 2.5 MG TAB (ELIQUIS) PO SCH ×2 (09:19→20:45)
[2019-06-02] MEDS: DICLOFENAC EPOLAMINE 1.3 % PATCH TOP SCH ×2 (09:19→20:46)
[2019-06-02] MEDS: PANTOPRAZOLE 40MG TAB (PROTONIX) PO SCH (09:19)
[2019-06-02] MEDS: ACETAMINOPHEN 500 MG TAB PO SCH ×3 (09:19→20:45)
[2019-06-02 12:05] LABS: BASO % 0.6 % (0.0-1.0); EOS # 0.2 10^3/uL (0.0-0.5); HEMATOCRIT 41.6 % (36.0-47.0); HEMOGLOBIN 13.7 g/dl (12.0-15.5); LYMPH # 0.8 10^3/uL (1.5-5.0); LYMPH % 11.5 % (24.0-44.0); MEAN CORPUSCULAR HEMOGLOBIN 29.4 pg (27.0-33.0); MEAN CORPUSCULAR HGB CONC 32.9 g/dl (32.0-36.5); MEAN CORPUSCULAR VOLUME 89.3 fl (80.0-96.0); MONO # 0.6 10^3/uL (0.0-0.8); MONO % 9.2 % (0.0-5.0); NEUTROPHILS # 5.2 10^3/uL (1.5-8.5); NEUTROPHILS % 75.4 % (36.0-66.0); PLATELET COUNT, AUTOMATED 221 10^3/uL (150-450); RED BLOOD COUNT 4.66 10^6/uL (4.00-5.40); WHITE BLOOD COUNT 6.9 10^3/uL (4.0-10.0)
[2019-06-02 12:32] LABS: BLOOD UREA NITROGEN 21 MG/DL (7-18); CALCIUM LEVEL 9.2 MG/DL (8.8-10.2); CARBON DIOXIDE LEVEL 28 MEQ/L (21-32); CHLORIDE LEVEL 107 MEQ/L (98-107); CREATININE FOR GFR 0.61 MG/DL (0.55-1.30); GLOMERULAR FILTRATION RATE > 60.0 (>32); GLUCOSE, FASTING 101 MG/DL (70-100); POTASSIUM SERUM 4.4 MEQ/L (3.5-5.1); SODIUM LEVEL 139 MEQ/L (136-145)
--- NOTE | 2019-06-02 12:36 | IPNPDOC ---
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 She and her family would like to go to short term rehab because they are not able to provide 24h care and think she will do better with more therapy. REVIEW OF SYSTEMS: The following is a completed review of systems and has been reviewed. Review of systems otherwise unremarkable. PAIN: Patient self reports left wrist pain and left knee pain EYES: No recent vision changes EARS, NOSE, & THROAT:+dysphagia CARDIOVASCULAR: Denies chest pain or palpitations PULMONARY: Denies shortness of breath GASTROINTESTINAL: no diarrhea/constipation GENITOURINARY: denies dysuria MUSCULOSKELETAL: left knee and wrist pain NEUROLOGICAL:LUE and LLE paresis SKIN: no rash PSYCHIATRIC: Unremarkable All other review of systems found to be negative. PHYSICAL EXAMINATION: VITAL SIGNS: Please see below. GENERAL: Pleasant and cooperative. No acute distress. HEENT: PERRL. Extraocular movements intact. Clear conjunctiva, no facial droop CARDIOVASCULAR:Irregular rate and rhythm. No murmurs, rubs, or gallops LUNGS: Clear to auscultation bilaterally. No wheezes. No rhonchi ABDOMEN: Soft, nontender, nondistended. Positive bowel sounds. Normal active bowel sounds NEUROLOGICAL: Alert and oriented times three, able to give detailed story Cranial nerves II through XII grossly intact. Sensation grossly intact in all 4 limbs (-) babinki bilat EXTREMITIES: 5\5 strength right upper extremities. 4/5 LUE, 4/5 LLE, 5\5 strength right lower extremity. 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 PLAN: 1. 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 [place] 05/24/19 with upgrade to thins 2. 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 Cardio: pmh Afib and HTN on elquis and beta-rajesh, c/u lisinopril qHS will increase to 20mg and c/u metoprolol 25mg q8h -medicine consulted to assist in management, recs appreciated -HLD- statin 4. Resp: encourage incentive spirometry 5. : monitor PVRS 6. DVT ppx: teds and eliquis 7. GI ppx: protonix 8. Ortho: left knee effusion and left wrist swelling both improving, Xrays both negative for fracture, positive for arthritic changes, counseled patient and family on danger of restarting Diclofenac given recent stroke for its cardiovascular effects and for GI bleed risk while on ASA and eliquis, c/u Diclofenac patch -s/p Medrol dose pack, increased Cymbalta dosing at 60mg daily, pain and ambulation improving 9. Dispo: 06/07/19 to home with 24-7, patient not meeting her functional goals at this time as still requiring Min assist for ADLs and unable to walk without min assist, family and patient requesting short term rehab Allergies Coded Allergies: No Known Allergies (Unverified , 05/14/19) Vital Signs Vital Signs Date Time Temp Pulse Resp B/P (MAP) Pulse Ox O2 Delivery O2 Flow Rate FiO2 06/02/19 05:57 97.8 59 18 155/81 (105) 95 Laboratory Data CBC/BMP Laboratory Tests 06/02/19 11:51 Red Blood Count 4.66, Mean Corpuscular Volume 89.3, Mean Corpuscular Hemoglobin 29.4, Mean Corpuscular Hemoglobin Concent 32.9, Red Cell Distribution Width 13.5, Neutrophils (%) (Auto) 75.4 H, Lymphocytes (%) (Auto) 11.5 L, Monocytes (%) (Auto) 9.2 H, Eosinophils (%) (Auto) 3.0, Basophils (%) (Auto) 0.6, Neutrophils # (Auto) 5.2, Lymphocytes # (Auto) 0.8 L, Monocytes # (Auto) 0.6, Eosinophils # (Auto) 0.2, Basophils # (Auto) 0.0, Calcium Level 9.2 Labs 24H Laboratory Tests 2 06/02/19 11:51: Immature Granulocyte % (Auto) 0.3, White Blood Count 6.9, Red Blood Count 4.66, Hemoglobin 13.7, Hematocrit 41.6, Mean Corpuscular Volume 89.3, Mean Corpuscular Hemoglobin 29.4, Mean Corpuscular Hemoglobin Concent 32.9, Red Cell Distribution Width 13.5, Platelet Count 221, Neutrophils (%) (Auto) 75.4H, Lymphocytes (%) (Auto) 11.5L, Monocytes (%) (Auto) 9.2H, Eosinophils (%) (Auto) 3.0, Basophils (%) (Auto) 0.6, Neutrophils # (Auto) 5.2, Lymphocytes # (Auto) 0.8L, Monocytes # (Auto) 0.6, Eosinophils # (Auto) 0.2, Basophils # (Auto) 0.0, Nucleated Red Blood Cells % (auto) 0.0, Anion Gap 4L, Glomerular Filtration Rate > 60.0, Blood Urea Nitrogen 21H, Creatinine 0.61, Sodium Level 139, Potassium Level 4.4, Chloride Level 107, Carbon Dioxide Level 28, Calcium Level 9.2 Current Medications Current Medications Current Medications Medications (Trade) Dose Ordered Sig/Didier Route PRN Reason Start Time Stop Time Status Last Admin Dose Admin Acetaminophen (Tylenol Tab) 650 mg Q4HP PRN PO MILD PAIN (PS 1-4) 05/18/19 13:45 05/21/19 13:38 DC Acetaminophen (Tylenol Tab) 1,000 mg TID PO 05/21/19 16:00 06/02/19 09:19 Acetaminophen (Tylenol Tab) 1,000 mg TID PO 05/21/19 16:00 UNV Apixaban (Eliquis) 2.5 mg BID PO 05/18/19 21:00 06/02/19 09:19 Aspirin (Aspirin Chewable) 81 mg DAILY PO 05/19/19 09:00 06/02/19 09:19 Atorvastatin Calcium (Lipitor) 40 mg QHS PO 05/18/19 21:00 06/01/19 20:47 Bisacodyl (Dulcolax Suppository) 10 mg DAILYPRN PRN [place] CONSTIPATION 05/18/19 13:45 Diclofenac Epolamine (Flector 1.3%) 1 patch Q12H TOP 05/23/19 09:00 06/02/19 09:19 Docusate Sodium (Colace) 100 mg BID PO 05/18/19 21:00 06/02/19 09:19 Duloxetine HCl (Cymbalta) 30 mg DAILY PO 05/23/19 09:00 05/31/19 12:52 DC 05/31/19 10:08 Duloxetine HCl (Cymbalta) 60 mg DAILY PO 06/01/19 09:00 06/02/19 09:19 Fluoxetine HCl (PROzac) 20 mg DAILY PO 05/19/19 09:00 05/23/19 14:41 DC 05/23/19 09:31 Home Med (Med Rec Complete!) ASDIRECTED XX 05/18/19 16:00 05/18/19 16:00 DC Lidocaine (Lidoderm Patch) 1 patch DAILY TD 05/24/19 09:00 05/30/19 16:28 DC 05/30/19 08:42 Lidocaine (Lidoderm Patch) 2 patch DAILY TD 05/19/19 09:00 05/23/19 14:54 DC 05/23/19 09:31 Lisinopril (Prinivil) 10 mg DAILY PO 05/25/19 09:00 05/28/19 09:33 DC 05/27/19 10:30 Lisinopril (Prinivil) 10 mg QHS PO 05/28/19 21:00 05/30/19 12:36 DC 05/29/19 21:26 Lisinopril (Prinivil) 20 mg QHS PO 05/30/19 21:00 06/01/19 20:46 Magnesium Hydroxide (Milk Of Magnesia) 30 ml DAILYPRN PRN PO CONSTIPATION 05/18/19 13:45 Methylprednisolone (Medrol) 4 mg 6XD PO 05/24/19 12:00 05/24/19 21:01 DC 05/24/19 20:41 Methylprednisolone (Medrol) 4 mg Taper DAILY PO 05/25/19 06:00 05/30/19 05:59 DC 05/29/19 10:20 Metoprolol Succinate (TopROL XL) 25 mg DAILY PO 05/24/19 09:00 05/26/19 10:19 DC 05/26/19 09:44 Metoprolol Succinate (TopROL XL) 50 mg DAILY PO 05/27/19 09:00 05/31/19 12:49 DC 05/31/19 10:08 Metoprolol Tartrate (Lopressor) 25 mg BID PO 05/18/19 21:00 05/19/19 09:30 DC 05/19/19 08:22 Metoprolol Tartrate (Lopressor) 25 mg Q8H PO 05/31/19 14:00 06/01/19 12:55 DC Metoprolol Tartrate (Lopressor) 50 mg BID PO 05/19/19 21:00 05/23/19 14:41 DC 05/22/19 20:15 Non-Formulary Medication ( See Comment Field Below ) REMOVE LIDODERM PATCH DAILY@21 XX 05/19/19 21:00 05/30/19 16:29 DC 05/29/19 21:44 Oxymetazoline HCl (Afrin) 2 spray ASDIRECTED PRN NA SEE LABEL COMMENTS 05/24/19 10:00 05/24/19 11:21 DC Pantoprazole Sodium (Protonix) 40 mg DAILY PO 05/19/19 09:00 06/02/19 09:19 Patient Own Medication (Patient'S Own Med) PresverVision 1 gelcap po daily DAILY PO 05/21/19 09:00 06/02/19 09:19 Senna (Senokot) 1 tab QHS PO 05/18/19 21:00 06/01/19 20:46 Trazodone HCl (Desyrel) 25 mg QHSP PRN PO INSOMNIA 05/18/19 13:45 PAULA JOHNSON MD Jun 02, 2019 12:36
[2019-06-02 14:00] VITALS: BP 152/73
[2019-06-02] MEDS: amLODIPine 5 MG TAB PO SCH (16:54)
[2019-06-02 20:00] VITALS: BP 142/2
[2019-06-02] MEDS: SENNA 8.6 MG TAB (SENOKOT) PO SCH (20:45)
[2019-06-02] MEDS: ATORVASTATIN 20 MG TAB PO SCH (20:45)
[2019-06-02] MEDS: lisinopriL 10 MG TAB PO SCH (20:46)
[2019-06-03 04:00] VITALS: BP 125/62
[2019-06-03] MEDS: ASPIRIN 81 MG CHEW TABLET PO SCH (08:23)
[2019-06-03] MEDS: APIXABAN 2.5 MG TAB (ELIQUIS) PO SCH ×2 (08:23→21:06)
[2019-06-03] MEDS: ACETAMINOPHEN 500 MG TAB PO SCH ×3 (08:23→21:05)
[2019-06-03] MEDS: DICLOFENAC EPOLAMINE 1.3 % PATCH TOP SCH ×2 (08:23→21:06)
[2019-06-03] MEDS: PRESERVISION PO SCH (08:23)
[2019-06-03] MEDS: amLODIPine 5 MG TAB PO SCH (08:24)
[2019-06-03] MEDS: DOCUSATE SODIUM 100 MG CAP PO SCH ×2 (08:24→21:06)
[2019-06-03] MEDS: DULoxetine 30 MG CAP (CYMBALTA) PO SCH (08:24)
[2019-06-03] MEDS: PANTOPRAZOLE 40MG TAB (PROTONIX) PO SCH (08:24)
--- NOTE | 2019-06-03 11:14 | IPNPDOC ---
Date Seen The patient was seen on 06/03/19. Progress Note Subjective: Patient tells me that she is doing well today. She denies lightheadedness dizziness headache or changes in her vision, She denies chest pain, shortness of breath or palpitations. 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 fib - s/p ablation, not requiring rate controlling agents - Will require monitoring for any development of tachycardia however at this time this does not appear to be a problem - c/w full anticoagulation with Eliquis HTN - BP acceptable at the present time. She is continued on lisinopril she has been recently started on amlodipine 5 mg daily. Should she become hypertensive could consider increasing this to 10 mg daily we'll continue to monitor Left hip pain - XR are negative for fracture, resolved - c/w Pain control as per ARU - c/w PT / OT Mood disorder - c/w Duloxetine and Trazodone DVT prophylaxis - c/w full anticoagulation with Eliquis We will continue to follow along with you please vocera secure text us with any specific questions regarding this patient VS, I&O, 24H, Fishbone Vital Signs/I&O Vital Signs Date Time Temp Pulse Resp B/P (MAP) Pulse Ox O2 Delivery O2 Flow Rate FiO2 06/03/19 08:24 70 125/62 06/03/19 04:00 96.7 17 96 I&O- Last 24 Hours up to 6 AM 06/03/19 05:59 Intake Total 720 ml Balance 720 ml Laboratory Data 24H LABS Laboratory Tests 2 06/02/19 11:51: Immature Granulocyte % (Auto) 0.3, White Blood Count 6.9, Red Blood Count 4.66, Hemoglobin 13.7, Hematocrit 41.6, Mean Corpuscular Volume 89.3, Mean Corpuscular Hemoglobin 29.4, Mean Corpuscular Hemoglobin Concent 32.9, Red Cell Distribution Width 13.5, Platelet Count 221, Neutrophils (%) (Auto) 75.4H, Lymphocytes (%) (Auto) 11.5L, Monocytes (%) (Auto) 9.2H, Eosinophils (%) (Auto) 3.0, Basophils (%) (Auto) 0.6, Neutrophils # (Auto) 5.2, Lymphocytes # (Auto) 0.8L, Monocytes # (Auto) 0.6, Eosinophils # (Auto) 0.2, Basophils # (Auto) 0.0, Nucleated Red Blood Cells % (auto) 0.0, Anion Gap 4L, Glomerular Filtration Rate > 60.0, Blood Urea Nitrogen 21H, Creatinine 0.61, Sodium Level 139, Potassium Level 4.4, Chloride Level 107, Carbon Dioxide Level 28, Calcium Level 9.2 CBC/BMP Laboratory Tests 06/02/19 11:51 Red Blood Count 4.66, Mean Corpuscular Volume 89.3, Mean Corpuscular Hemoglobin 29.4, Mean Corpuscular Hemoglobin Concent 32.9, Red Cell Distribution Width 13.5, Neutrophils (%) (Auto) 75.4 H, Lymphocytes (%) (Auto) 11.5 L, Monocytes (%) (Auto) 9.2 H, Eosinophils (%) (Auto) 3.0, Basophils (%) (Auto) 0.6, Neutrophils # (Auto) 5.2, Lymphocytes # (Auto) 0.8 L, Monocytes # (Auto) 0.6, Eosinophils # (Auto) 0.2, Basophils # (Auto) 0.0, Calcium Level 9.2 RICH POLLACK MD Jun 03, 2019 11:14
[2019-06-03 14:00] VITALS: BP 160/82
[2019-06-03 15:00] VITALS: BP 138/76
[2019-06-03 19:47] VITALS: BP 152/64
[2019-06-03] MEDS: ATORVASTATIN 20 MG TAB PO SCH (21:06)
[2019-06-03] MEDS: SENNA 8.6 MG TAB (SENOKOT) PO SCH (21:06)
[2019-06-03] MEDS: lisinopriL 10 MG TAB PO SCH (21:06)
[2019-06-04 06:00] VITALS: BP_SYST 120; BP_SYST 126; BP_DIAS 58; BP_DIAS 62
[2019-06-04] MEDS: DOCUSATE SODIUM 100 MG CAP PO SCH ×2 (09:37→20:10)
[2019-06-04] MEDS: ASPIRIN 81 MG CHEW TABLET PO SCH (09:37)
[2019-06-04] MEDS: amLODIPine 5 MG TAB PO SCH (09:37)
[2019-06-04] MEDS: PANTOPRAZOLE 40MG TAB (PROTONIX) PO SCH (09:37)
[2019-06-04] MEDS: DULoxetine 30 MG CAP (CYMBALTA) PO SCH (09:37)
[2019-06-04] MEDS: APIXABAN 2.5 MG TAB (ELIQUIS) PO SCH ×2 (09:37→20:09)
[2019-06-04] MEDS: ACETAMINOPHEN 500 MG TAB PO SCH ×3 (09:37→20:10)
[2019-06-04] MEDS: DICLOFENAC EPOLAMINE 1.3 % PATCH TOP SCH ×2 (09:37→20:09)
[2019-06-04] MEDS: PRESERVISION PO SCH (09:38)
[2019-06-04 14:00] VITALS: BP 138/74
[2019-06-04 20:00] VITALS: BP 150/77
[2019-06-04] MEDS: lisinopriL 10 MG TAB PO SCH (20:09)
[2019-06-04] MEDS: ATORVASTATIN 20 MG TAB PO SCH (20:09)
[2019-06-04] MEDS: SENNA 8.6 MG TAB (SENOKOT) PO SCH (20:10)
[2019-06-05 06:00] VITALS: BP 132/61
[2019-06-05] MEDS: DULoxetine 30 MG CAP (CYMBALTA) PO SCH (08:31)
[2019-06-05] MEDS: DOCUSATE SODIUM 100 MG CAP PO SCH ×2 (08:31→20:55)
[2019-06-05] MEDS: ASPIRIN 81 MG CHEW TABLET PO SCH (08:31)
[2019-06-05] MEDS: PANTOPRAZOLE 40MG TAB (PROTONIX) PO SCH (08:31)
[2019-06-05] MEDS: ACETAMINOPHEN 500 MG TAB PO SCH ×3 (08:31→20:55)
[2019-06-05] MEDS: amLODIPine 10 MG TAB PO SCH (08:31)
[2019-06-05] MEDS: PRESERVISION PO SCH (08:31)
[2019-06-05] MEDS: APIXABAN 2.5 MG TAB (ELIQUIS) PO SCH ×2 (08:31→20:55)
[2019-06-05] MEDS: DICLOFENAC EPOLAMINE 1.3 % PATCH TOP SCH ×2 (08:32→20:55)
--- NOTE | 2019-06-05 11:53 | IPNPDOC ---
PM&R Progress Note DATE OF SERVICE: Jun 05, 2019 Case Therapist Progress Note Subjective: Patient seen in her room stating her walking and pain in her left knee is improving. REVIEW OF SYSTEMS: The following is a completed review of systems and has been reviewed. Review of systems otherwise unremarkable. PAIN: Patient self reports left wrist pain and left knee pain EYES: No recent vision changes EARS, NOSE, & THROAT:+dysphagia CARDIOVASCULAR: Denies chest pain or palpitations PULMONARY: Denies shortness of breath GASTROINTESTINAL: no diarrhea/constipation GENITOURINARY: denies dysuria MUSCULOSKELETAL: left knee and wrist pain NEUROLOGICAL:LUE and LLE paresis SKIN: no rash PSYCHIATRIC: Unremarkable All other review of systems found to be negative. PHYSICAL EXAMINATION: VITAL SIGNS: Please see below. GENERAL: Pleasant and cooperative. No acute distress. HEENT: PERRL. Extraocular movements intact. Clear conjunctiva, no facial droop CARDIOVASCULAR:Irregular rate and rhythm. No murmurs, rubs, or gallops LUNGS: Clear to auscultation bilaterally. No wheezes. No rhonchi ABDOMEN: Soft, nontender, nondistended. Positive bowel sounds. Normal active bowel sounds NEUROLOGICAL: Alert and oriented times three, able to give detailed story Cranial nerves II through XII grossly intact. Sensation grossly intact in all 4 limbs (-) babinki bilat EXTREMITIES: 5\5 strength right upper extremities. 4/5 LUE, 4/5 LLE, 5\5 strength right lower extremity. 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 PLAN: 1. 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 Cardio: pmh Afib and HTN on elquis, c/u lisinopril, amlodipine added, will restart metoprolol in setting of Afib, medicine recs appreciated -HLD- statin 4. Resp: encourage incentive spirometry 5. : monitor PVRS 6. DVT ppx: teds and eliquis 7. GI ppx: protonix 8. Ortho: left knee effusion and left wrist swelling both improving, Xrays both negative for fracture, positive for arthritic changes, counseled patient and family on danger of restarting Diclofenac given recent stroke for its cardiovascular effects and for GI bleed risk while on ASA and eliquis, c/u Diclofenac patch -s/p Medrol dose pack, increased Cymbalta dosing at 60mg daily, pain and ambulation improving 9. Dispo: 06/07/19 to home with 24-7, patient not meeting her functional goals at this time as still requiring Min assist for ADLs and unable to walk without min assist, family and patient requesting short term rehab Allergies Coded Allergies: No Known Allergies (Unverified , 05/14/19) Vital Signs Vital Signs Date Time Temp Pulse Resp B/P (MAP) Pulse Ox O2 Delivery O2 Flow Rate FiO2 06/05/19 08:31 68 132/61 06/05/19 06:00 97.8 18 99 Current Medications Current Medications Current Medications Medications (Trade) Dose Ordered Sig/Didier Route PRN Reason Start Time Stop Time Status Last Admin Dose Admin Acetaminophen (Tylenol Tab) 650 mg Q4HP PRN PO MILD PAIN (PS 1-4) 05/18/19 13:45 05/21/19 13:38 DC Acetaminophen (Tylenol Tab) 1,000 mg TID PO 05/21/19 16:00 06/05/19 08:31 Acetaminophen (Tylenol Tab) 1,000 mg TID PO 05/21/19 16:00 UNV Amlodipine Besylate (Norvasc) 5 mg DAILY PO 06/02/19 09:00 9/8/19 13:07 DC 06/04/19 09:37 Amlodipine Besylate (Norvasc) 10 mg DAILY PO 06/05/19 09:00 06/05/19 08:31 Apixaban (Eliquis) 2.5 mg BID PO 05/18/19 21:00 06/05/19 08:31 Aspirin (Aspirin Chewable) 81 mg DAILY PO 05/19/19 09:00 06/05/19 08:31 Atorvastatin Calcium (Lipitor) 40 mg QHS PO 05/18/19 21:00 06/04/19 20:09 Bisacodyl (Dulcolax Suppository) 10 mg DAILYPRN PRN [place] CONSTIPATION 05/18/19 13:45 Diclofenac Epolamine (Flector 1.3%) 1 patch Q12H TOP 05/23/19 09:00 06/05/19 08:32 Docusate Sodium (Colace) 100 mg BID PO 05/18/19 21:00 06/05/19 08:31 Duloxetine HCl (Cymbalta) 30 mg DAILY PO 05/23/19 09:00 05/31/19 12:52 DC 05/31/19 10:08 Duloxetine HCl (Cymbalta) 60 mg DAILY PO 06/01/19 09:00 06/05/19 08:31 Fluoxetine HCl (PROzac) 20 mg DAILY PO 05/19/19 09:00 05/23/19 14:41 DC 05/23/19 09:31 Home Med (Med Rec Complete!) ASDIRECTED XX 05/18/19 16:00 05/18/19 16:00 DC Lidocaine (Lidoderm Patch) 1 patch DAILY TD 05/24/19 09:00 05/30/19 16:28 DC 05/30/19 08:42 Lidocaine (Lidoderm Patch) 2 patch DAILY TD 05/19/19 09:00 05/23/19 14:54 DC 05/23/19 09:31 Lisinopril (Prinivil) 10 mg DAILY PO 05/25/19 09:00 05/28/19 09:33 DC 05/27/19 10:30 Lisinopril (Prinivil) 10 mg QHS PO 05/28/19 21:00 05/30/19 12:36 DC 05/29/19 21:26 Lisinopril (Prinivil) 20 mg QHS PO 05/30/19 21:00 06/04/19 20:09 Magnesium Hydroxide (Milk Of Magnesia) 30 ml DAILYPRN PRN PO CONSTIPATION 05/18/19 13:45 Methylprednisolone (Medrol) 4 mg 6XD PO 05/24/19 12:00 05/24/19 21:01 DC 05/24/19 20:41 Methylprednisolone (Medrol) 4 mg Taper DAILY PO 05/25/19 06:00 05/30/19 05:59 DC 05/29/19 10:20 Metoprolol Succinate (TopROL XL) 25 mg DAILY PO 05/24/19 09:00 05/26/19 10:19 DC 05/26/19 09:44 Metoprolol Succinate (TopROL XL) 50 mg DAILY PO 05/27/19 09:00 05/31/19 12:49 DC 05/31/19 10:08 Metoprolol Tartrate (Lopressor) 25 mg BID PO 05/18/19 21:00 05/19/19 09:30 DC 05/19/19 08:22 Metoprolol Tartrate (Lopressor) 25 mg Q8H PO 05/31/19 14:00 06/01/19 12:55 DC Metoprolol Tartrate (Lopressor) 50 mg BID PO 05/19/19 21:00 05/23/19 14:41 DC 05/22/19 20:15 Non-Formulary Medication ( See Comment Field Below ) REMOVE LIDODERM PATCH DAILY@21 XX 05/19/19 21:00 05/30/19 16:29 DC 05/29/19 21:44 Oxymetazoline HCl (Afrin) 2 spray ASDIRECTED PRN NA SEE LABEL COMMENTS 05/24/19 10:00 05/24/19 11:21 DC Pantoprazole Sodium (Protonix) 40 mg DAILY PO 05/19/19 09:00 06/05/19 08:31 Patient Own Medication (Patient'S Own Med) PresverVision 1 gelcap po daily DAILY PO 05/21/19 09:00 06/05/19 08:31 Senna (Senokot) 1 tab QHS PO 05/18/19 21:00 06/04/19 20:10 Trazodone HCl (Desyrel) 25 mg QHSP PRN PO INSOMNIA 05/18/19 13:45 PAULA JOHNSON MD Jun 05, 2019 11:53
[2019-06-05] MEDS: METOPROLOL SUCC *XL* 25MG TAB (TopROL *XL*) PO SCH (13:30)
[2019-06-05 14:00] VITALS: BP 136/81
[2019-06-05 19:50] VITALS: BP 134/62
[2019-06-05] MEDS: ATORVASTATIN 20 MG TAB PO SCH (20:55)
[2019-06-05] MEDS: SENNA 8.6 MG TAB (SENOKOT) PO SCH (20:56)
[2019-06-05] MEDS: lisinopriL 10 MG TAB PO SCH (20:56)
[2019-06-06 06:00] VITALS: BP 123/59
[2019-06-06 07:10] LABS: BASO % 0.5 % (0.0-1.0); EOS # 0.4 10^3/uL (0.0-0.5); EOS % 6.1 % (0.0-3.0); HEMATOCRIT 42.3 % (36.0-47.0); HEMOGLOBIN 13.9 g/dl (12.0-15.5); LYMPH # 0.8 10^3/uL (1.5-5.0); LYMPH % 12.6 % (24.0-44.0); MEAN CORPUSCULAR HEMOGLOBIN 28.7 pg (27.0-33.0); MEAN CORPUSCULAR HGB CONC 32.9 g/dl (32.0-36.5); MEAN CORPUSCULAR VOLUME 87.2 fl (80.0-96.0); MONO # 0.6 10^3/uL (0.0-0.8); MONO % 10.5 % (0.0-5.0); NEUTROPHILS # 4.1 10^3/uL (1.5-8.5); NEUTROPHILS % 69.6 % (36.0-66.0); PLATELET COUNT, AUTOMATED 213 10^3/uL (150-450); RED BLOOD COUNT 4.85 10^6/uL (4.00-5.40); WHITE BLOOD COUNT 5.9 10^3/uL (4.0-10.0)
[2019-06-06 07:33] LABS: BLOOD UREA NITROGEN 22 MG/DL (7-18); CALCIUM LEVEL 9.3 MG/DL (8.8-10.2); CARBON DIOXIDE LEVEL 32 MEQ/L (21-32); CHLORIDE LEVEL 107 MEQ/L (98-107); CREATININE FOR GFR 0.65 MG/DL (0.55-1.30); GLOMERULAR FILTRATION RATE > 60.0 (>32); GLUCOSE, FASTING 104 MG/DL (70-100); POTASSIUM SERUM 4.2 MEQ/L (3.5-5.1); SODIUM LEVEL 141 MEQ/L (136-145)
[2019-06-06] MEDS: DULoxetine 30 MG CAP (CYMBALTA) PO SCH (08:55)
[2019-06-06] MEDS: DICLOFENAC EPOLAMINE 1.3 % PATCH TOP SCH ×2 (08:55→21:42)
[2019-06-06] MEDS: DOCUSATE SODIUM 100 MG CAP PO SCH ×3 (08:55→21:42)
[2019-06-06] MEDS: APIXABAN 2.5 MG TAB (ELIQUIS) PO SCH ×2 (08:55→21:41)
[2019-06-06] MEDS: ASPIRIN 81 MG CHEW TABLET PO SCH (08:55)
[2019-06-06] MEDS: ACETAMINOPHEN 500 MG TAB PO SCH ×3 (08:55→21:42)
[2019-06-06] MEDS: METOPROLOL SUCC *XL* 25MG TAB (TopROL *XL*) PO SCH (08:56)
[2019-06-06] MEDS: amLODIPine 10 MG TAB PO SCH (08:56)
[2019-06-06] MEDS: PANTOPRAZOLE 40MG TAB (PROTONIX) PO SCH (08:56)
[2019-06-06] MEDS: PRESERVISION PO SCH (08:56)
[2019-06-06 14:00] VITALS: BP 138/63
--- NOTE | 2019-06-06 14:29 | IPNPDOC ---
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 REVIEW OF SYSTEMS: The following is a completed review of systems and has been reviewed. Review of systems otherwise unremarkable. PAIN: Patient self reports left wrist pain and left knee pain EYES: No recent vision changes EARS, NOSE, & THROAT:+dysphagia CARDIOVASCULAR: Denies chest pain or palpitations PULMONARY: Denies shortness of breath GASTROINTESTINAL: no diarrhea/constipation GENITOURINARY: denies dysuria MUSCULOSKELETAL: left knee and wrist pain NEUROLOGICAL:LUE and LLE paresis SKIN: no rash PSYCHIATRIC: Unremarkable All other review of systems found to be negative. PHYSICAL EXAMINATION: VITAL SIGNS: Please see below. GENERAL: Pleasant and cooperative. No acute distress. HEENT: PERRL. Extraocular movements intact. Clear conjunctiva, no facial droop CARDIOVASCULAR:Irregular rate and rhythm. No murmurs, rubs, or gallops LUNGS: Clear to auscultation bilaterally. No wheezes. No rhonchi ABDOMEN: Soft, nontender, nondistended. Positive bowel sounds. Normal active bowel sounds NEUROLOGICAL: Alert and oriented times three, able to give detailed story Cranial nerves II through XII grossly intact. Sensation grossly intact in all 4 limbs (-) babinki bilat EXTREMITIES: 5\5 strength right upper extremities. 4/5 LUE, 4/5 LLE, 5\5 strength right lower extremity. 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 PLAN: 1. 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 Cardio: pmh Afib and HTN on elquis, c/u lisinopril, amlodipine added, will restart metoprolol in setting of Afib, medicine recs appreciated -HLD- statin 4. Resp: encourage incentive spirometry 5. : monitor PVRS 6. DVT ppx: teds and eliquis 7. GI ppx: protonix 8. Ortho: left knee effusion and left wrist swelling both improving, Xrays both negative for fracture, positive for arthritic changes, counseled patient and giovanna hardin on danger of restarting Diclofenac given recent stroke for its cardiovascular effects and for GI bleed risk while on ASA and eliquis, c/u Diclofenac patch -s/p Medrol dose pack, increased Cymbalta dosing at 60mg daily, pain and ambulation improving 9. Dispo: pending STR acceptance Allergies Coded Allergies: No Known Allergies (Unverified , 05/14/19) Vital Signs Vital Signs Date Time Temp Pulse Resp B/P (MAP) Pulse Ox O2 Delivery O2 Flow Rate FiO2 06/06/19 08:56 75 123/59 06/06/19 06:00 97.3 18 96 Laboratory Data CBC/BMP Laboratory Tests 06/06/19 06:50 Red Blood Count 4.85, Mean Corpuscular Volume 87.2, Mean Corpuscular Hemoglobin 28.7, Mean Corpuscular Hemoglobin Concent 32.9, Red Cell Distribution Width 13.6, Neutrophils (%) (Auto) 69.6 H, Lymphocytes (%) (Auto) 12.6 L, Monocytes (%) (Auto) 10.5 H, Eosinophils (%) (Auto) 6.1 H, Basophils (%) (Auto) 0.5, Neutrophils # (Auto) 4.1, Lymphocytes # (Auto) 0.8 L, Monocytes # (Auto) 0.6, Eosinophils # (Auto) 0.4, Basophils # (Auto) 0.0, Calcium Level 9.3 Labs 24H Laboratory Tests 2 06/06/19 06:50: Immature Granulocyte % (Auto) 0.7, White Blood Count 5.9, Red Blood Count 4.85, Hemoglobin 13.9, Hematocrit 42.3, Mean Corpuscular Volume 87.2, Mean Corpuscular Hemoglobin 28.7, Mean Corpuscular Hemoglobin Concent 32.9, Red Cell Distribution Width 13.6, Platelet Count 213, Neutrophils (%) (Auto) 69.6H, Lymphocytes (%) (Auto) 12.6L, Monocytes (%) (Auto) 10.5H, Eosinophils (%) (Auto) 6.1H, Basophils (%) (Auto) 0.5, Neutrophils # (Auto) 4.1, Lymphocytes # (Auto) 0.8L, Monocytes # (Auto) 0.6, Eosinophils # (Auto) 0.4, Basophils # (Auto) 0.0, Nucleated Red B lood Cells % (auto) 0.0, Anion Gap 2L, Glomerular Filtration Rate > 60.0, Blood Urea Nitrogen 22H, Creatinine 0.65, Sodium Level 141, Potassium Level 4.2, Chloride Level 107, Carbon Dioxide Level 32, Calcium Level 9.3 Current Medications Current Medications Current Medications Medications (Trade) Dose Ordered Sig/Didier Route PRN Reason Start Time Stop Time Status Last Admin Dose Admin Acetaminophen (Tylenol Tab) 650 mg Q4HP PRN PO MILD PAIN (PS 1-4) 05/18/19 13:45 05/21/19 13:38 DC Acetaminophen (Tylenol Tab) 1,000 mg TID PO 05/21/19 16:00 06/06/19 08:55 Acetaminophen (Tylenol Tab) 1,000 mg TID PO 05/21/19 16:00 UNV Amlodipine Besylate (Norvasc) 5 mg DAILY PO 06/02/19 09:00 06/04/19 13:07 DC 06/04/19 09:37 Amlodipine Besylate (Norvasc) 10 mg DAILY PO 06/05/19 09:00 06/06/19 08:56 Apixaban (Eliquis) 2.5 mg BID PO 05/18/19 21:00 06/06/19 08:55 Aspirin (Aspirin Chewable) 81 mg DAILY PO 05/19/19 09:00 06/06/19 08:55 Atorvastatin Calcium (Lipitor) 40 mg QHS PO 05/18/19 21:00 06/05/19 20:55 Bisacodyl (Dulcolax Suppository) 10 mg DAILYPRN PRN [place] CONSTIPATION 05/18/19 13:45 Diclofenac Epolamine (Flector 1.3%) 1 patch Q12H TOP 05/23/19 09:00 06/06/19 08:55 Docusate Sodium (Colace) 100 mg BID PO 05/18/19 21:00 06/05/19 20:55 Duloxetine HCl (Cymbalta) 30 mg DAILY PO 05/23/19 09:00 05/31/19 12:52 DC 05/31/19 10:08 Duloxetine HCl (Cymbalta) 60 mg DAILY PO 06/01/19 09:00 06/06/19 08:55 Fluoxetine HCl (PROzac) 20 mg DAILY PO 05/19/19 09:00 05/23/19 14:41 DC 05/23/19 09:31 Home Med (Med Rec Complete!) ASDIRECTED XX 05/18/19 16:00 05/18/19 16:00 DC Lidocaine (Lidoderm Patch) 1 patch DAILY TD 05/24/19 09:00 05/30/19 16:28 DC 05/30/19 08:42 Lidocaine (Lidoderm Patch) 2 patch DAILY TD 05/19/19 09:00 05/23/19 14:54 DC 05/23/19 09:31 Lisinopril (Prinivil) 10 mg DAILY PO 05/25/19 09:00 05/28/19 09:33 DC 05/27/19 10:30 Lisinopril (Prinivil) 10 mg QHS PO 05/28/19 21:00 05/30/19 12:36 DC 05/29/19 21:26 Lisinopril (Prinivil) 20 mg QHS PO 05/30/19 21:00 06/05/19 20:56 Magnesium Hydroxide (Milk Of Magnesia) 30 ml DAILYPRN PRN PO CONSTIPATION 05/18/19 13:45 Methylprednisolone (Medrol) 4 mg 6XD PO 05/24/19 12:00 05/24/19 21:01 DC 05/24/19 20:41 Methylprednisolone (Medrol) 4 mg Taper DAILY PO 05/25/19 06:00 05/30/19 05:59 DC 05/29/19 10:20 Metoprolol Succinate (TopROL XL) 25 mg DAILY PO 05/24/19 09:00 05/26/19 10:19 DC 05/26/19 09:44 Metoprolol Succinate (TopROL XL) 25 mg DAILY PO 06/05/19 09:00 06/06/19 08:56 Metoprolol Succinate (TopROL XL) 50 mg DAILY PO 05/27/19 09:00 05/31/19 12:49 DC 05/31/19 10:08 Metoprolol Tartrate (Lopressor) 25 mg BID PO 05/18/19 21:00 05/19/19 09:30 DC 05/19/19 08:22 Metoprolol Tartrate (Lopressor) 25 mg Q8H PO 05/31/19 14:00 06/01/19 12:55 DC Metoprolol Tartrate (Lopressor) 50 mg BID PO 05/19/19 21:00 05/23/19 14:41 DC 05/22/19 20:15 Non-Formulary Medication ( See Comment Field Below ) REMOVE LIDODERM PATCH DAILY@21 XX 05/19/19 21:00 05/30/19 16:29 DC 05/29/19 21:44 Oxymetazoline HCl (Afrin) 2 spray ASDIRECTED PRN NA SEE LABEL COMMENTS 05/24/19 10:00 05/24/19 11:21 DC Pantoprazole Sodium (Protonix) 40 mg DAILY PO 05/19/19 09:00 06/06/19 08:56 Patient Own Medication (Patient'S Own Med) PresverVision 1 gelcap po daily DAILY PO 05/21/19 09:00 06/06/19 08:56 Senna (Senokot) 1 tab QHS PO 05/18/19 21:00 06/05/19 20:56 Trazodone HCl (Desyrel) 25 mg QHSP PRN PO INSOMNIA 05/18/19 13:45 PAULA JOHNSON MD Jun 06, 2019 14:29
--- NOTE | 2019-06-06 15:06 | IPNPDOC ---
Text Note Date of Service The patient was seen on 06/06/19. NOTE Subjective: Patient is an 88-year-old female with PMHx of Atrial fibrillation (on Eliquis) - s/p ablation, HTN, DLP, who presents to the hospital with slurred speech. Patient was admitted to the medical floor for acute CVA. Patient was outside the TPA window upon arrival / was also not a candidate because of anti- coagulation. Patient was ultimately transferred to ARU on 05/18/2019 for continued rehabilitation. Patient was seen and examined at the bedside. Patient reports no problems overnight. Her blood pressure remains well-controlled. Denies headache, nausea, chest pain, abdominal pain, diarrhea, or urinary discomfort. 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 fib - s/p ablation - c/w full anticoagulation with Eliquis HTN - BP well-controlled - c/w adjusted dose of Amlodipine, Metoprolol succinate and Lisinopril Left hip pain - XR are negative for fracture - c/w Pain control as per ARU - c/w PT / OT Mood disorder - c/w Duloxetine and Trazodone DVT prophylaxis - c/w full anticoagulation with Eliquis VS,Fishbone, I+O VS, Fishbone, I+O Laboratory Tests 06/06/19 06:50 Red Blood Count 4.85, Mean Corpuscular Volume 87.2, Mean Corpuscular Hemoglobin 28.7, Mean Corpuscular Hemoglobin Concent 32.9, Red Cell Distribution Width 13.6, Neutrophils (%) (Auto) 69.6 H, Lymphocytes (%) (Auto) 12.6 L, Monocytes (%) (Auto) 10.5 H, Eosinophils (%) (Auto) 6.1 H, Basophils (%) (Auto) 0.5, Neutrophils # (Auto) 4.1, Lymphocytes # (Auto) 0.8 L, Monocytes # (Auto) 0.6, Eosinophils # (Auto) 0.4, Basophils # (Auto) 0.0, Calcium Level 9.3 Vital Signs Date Time Temp Pulse Resp B/P (MAP) Pulse Ox O2 Delivery O2 Flow Rate FiO2 06/06/19 08:56 75 123/59 06/06/19 06:00 97.3 18 96 I&O- Last 24 Hours up to 6 AM 06/06/19 06:00 Intake Total 780 ml Balance 780 ml CAROLANN LUCAS MD Jun 06, 2019 15:06
[2019-06-06 21:08] VITALS: BP 128/63
[2019-06-06] MEDS: SENNA 8.6 MG TAB (SENOKOT) PO SCH (21:41)
[2019-06-06] MEDS: ATORVASTATIN 20 MG TAB PO SCH (21:42)
[2019-06-06] MEDS: lisinopriL 10 MG TAB PO SCH (21:42)
[2019-06-07 06:16] VITALS: BP 142/65
[2019-06-07] MEDS: ASPIRIN 81 MG CHEW TABLET PO SCH (08:44)
[2019-06-07] MEDS: APIXABAN 2.5 MG TAB (ELIQUIS) PO SCH ×2 (08:44→21:20)
[2019-06-07] MEDS: DICLOFENAC EPOLAMINE 1.3 % PATCH TOP SCH ×2 (08:44→21:20)
[2019-06-07] MEDS: DOCUSATE SODIUM 100 MG CAP PO SCH ×2 (08:44→21:20)
[2019-06-07] MEDS: ACETAMINOPHEN 500 MG TAB PO SCH ×3 (08:44→21:19)
[2019-06-07] MEDS: PANTOPRAZOLE 40MG TAB (PROTONIX) PO SCH (08:44)
[2019-06-07] MEDS: METOPROLOL SUCC *XL* 25MG TAB (TopROL *XL*) PO SCH (08:44)
[2019-06-07] MEDS: PRESERVISION PO SCH (08:45)
[2019-06-07] MEDS: amLODIPine 10 MG TAB PO SCH (08:45)
[2019-06-07] MEDS: DULoxetine 30 MG CAP (CYMBALTA) PO SCH (08:45)
[2019-06-07 14:00] VITALS: BP 129/69
[2019-06-07 20:00] VITALS: BP 151/80
[2019-06-07] MEDS: ATORVASTATIN 20 MG TAB PO SCH (21:19)
[2019-06-07] MEDS: SENNA 8.6 MG TAB (SENOKOT) PO SCH (21:20)
[2019-06-07] MEDS: lisinopriL 10 MG TAB PO SCH (21:20)
[2019-06-08 05:24] VITALS: BP 137/63
[2019-06-08] MEDS: ASPIRIN 81 MG CHEW TABLET PO SCH (07:28)
[2019-06-08] MEDS: DULoxetine 30 MG CAP (CYMBALTA) PO SCH (07:28)
[2019-06-08] MEDS: PANTOPRAZOLE 40MG TAB (PROTONIX) PO SCH (07:28)
[2019-06-08] MEDS: ACETAMINOPHEN 500 MG TAB PO SCH ×3 (07:28→21:30)
[2019-06-08] MEDS: METOPROLOL SUCC *XL* 25MG TAB (TopROL *XL*) PO SCH (07:29)
[2019-06-08] MEDS: amLODIPine 10 MG TAB PO SCH (07:29)
[2019-06-08] MEDS: DOCUSATE SODIUM 100 MG CAP PO SCH ×2 (07:29→21:30)
[2019-06-08] MEDS: APIXABAN 2.5 MG TAB (ELIQUIS) PO SCH ×2 (07:30→21:30)
[2019-06-08] MEDS: DICLOFENAC EPOLAMINE 1.3 % PATCH TOP SCH ×2 (07:30→21:29)
[2019-06-08] MEDS: PRESERVISION PO SCH (07:31)
--- NOTE | 2019-06-08 11:15 | IPNPDOC ---
Text Note Date of Service The patient was seen on 06/08/19. NOTE ubjective: Patient is an 88-year-old female with PMHx of Atrial fibrillation (on Eliquis) - s/p ablation, HTN, DLP, who presents to the hospital with slurred speech. Patient was admitted to the medical floor for acute CVA. Patient was ou tside the TPA window upon arrival / was also not a candidate because of anti- coagulation. Patient was ultimately transferred to ARU on 05/18/2019 for continued rehabilitation. Patient was seen and examined at the bedside. . Currently, she reports that she' s been progressing well with physical therapy. She does not report any events overnight. She denies any headache, chest pain, abdominal pain or urinary discomfort. 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 fib - s/p ablation - c/w full anticoagulation with Eliquis HTN - BP continues to be well-controlled - c/w adjusted dose of Amlodipine, Metoprolol succinate and Lisinopril Left hip pain - XR are negative for fracture - c/w Pain control as per ARU - c/w PT / OT Mood disorder - c/w Duloxetine and Trazodone DVT prophylaxis - c/w full anticoagulation with Eliquis Disposition: - Patient reports that she may be able to go home tomorrow VS,Fishbone, I+O VS, Fishbone, I+O Vital Signs Date Time Temp Pulse Resp B/P (MAP) Pulse Ox O2 Delivery O2 Flow Rate FiO2 06/08/19 07:29 60 137/63 06/08/19 05:24 97.5 18 96 I&O- Last 24 Hours up to 6 AM 06/08/19 06:00 Intake Total 840 ml Balance 840 ml CAROLANN LUCAS MD Jun 08, 2019 11:15
--- NOTE | 2019-06-08 13:56 | IPNPDOC ---
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 REVIEW OF SYSTEMS: The following is a completed review of systems and has been reviewed. Review of systems otherwise unremarkable. PAIN: Patient self reports left wrist pain and left knee pain EYES: No recent vision changes EARS, NOSE, & THROAT:+dysphagia CARDIOVASCULAR: Denies chest pain or palpitations PULMONARY: Denies shortness of breath GASTROINTESTINAL: no diarrhea/constipation GENITOURINARY: denies dysuria MUSCULOSKELETAL: left knee and wrist pain NEUROLOGICAL:LUE and LLE paresis SKIN: no rash PSYCHIATRIC: Unremarkable All other review of systems found to be negative. PHYSICAL EXAMINATION: VITAL SIGNS: Please see below. GENERAL: Pleasant and cooperative. No acute distress. HEENT: PERRL. Extraocular movements intact. Clear conjunctiva, no facial droop CARDIOVASCULAR:Irregular rate and rhythm. No murmurs, rubs, or gallops LUNGS: Clear to auscultation bilaterally. No wheezes. No rhonchi ABDOMEN: Soft, nontender, nondistended. Positive bowel sounds. Normal active bowel sounds NEUROLOGICAL: Alert and oriented times three, able to give detailed story Cranial nerves II through XII grossly intact. Sensation grossly intact in all 4 limbs (-) babinki bilat EXTREMITIES: 5\5 strength right upper extremities. 4/5 LUE, 4/5 LLE, 5\5 strength right lower extremity. 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 PLAN: 1. 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 Cardio: pmh Afib and HTN on elquis, c/u lisinopril, amlodipine added, will restart metoprolol in setting of Afib, medicine recs appreciated -HLD- statin 4. Resp: encourage incentive spirometry 5. : monitor PVRS 6. DVT ppx: teds and eliquis 7. GI ppx: protonix 8. Ortho: left knee effusion and left wrist swelling both improving, Xrays both negative for fracture, positive for arthritic changes, counseled patient and family on danger of restarting Diclofenac given recent stroke for its cardiovascular effects and for GI bleed risk while on ASA and eliquis, c/u Diclofenac patch -s/p Medrol dose pack, increased Cymbalta dosing at 60mg daily, pain and ambulation improving 9. Dispo: pending STR acceptance Allergies Coded Allergies: No Known Allergies (Unverified , 05/14/19) Vital Signs Vital Signs Date Time Temp Pulse Resp B/P (MAP) Pulse Ox O2 Delivery O2 Flow Rate FiO2 06/08/19 07:29 60 137/63 06/08/19 05:24 97.5 18 96 Current Medications Current Medications Current Medications Medications (Trade) Dose Ordered Sig/Didier Route PRN Reason Start Time Stop Time Status Last Admin Dose Admin Acetaminophen (Tylenol Tab) 650 mg Q4HP PRN PO MILD PAIN (PS 1-4) 05/18/19 13:45 05/21/19 13:38 DC Acetaminophen (Tylenol Tab) 1,000 mg TID PO 05/21/19 16:00 06/06/19 14:31 DC 06/06/19 08:55 Acetaminophen (Tylenol Tab) 1,000 mg TID PO 05/21/19 16:00 UNV Acetaminophen (Tylenol Tab) 1,000 mg TID@0800,1600,2100 PO 06/06/19 14:31 06/08/19 07:28 Amlodipine Besylate (Norvasc) 5 mg DAILY PO 06/02/19 09:00 06/04/19 13:07 DC 06/04/19 09:37 Amlodipine Besylate (Norvasc) 10 mg DAILY PO 06/05/19 09:00 06/08/19 07:29 Apixaban (Eliquis) 2.5 mg BID PO 05/18/19 21:00 06/08/19 07:30 Aspirin (Aspirin Chewable) 81 mg DAILY PO 05/19/19 09:00 06/08/19 07:28 Atorvastatin Calcium (Lipitor) 40 mg QHS PO 05/18/19 21:00 06/07/19 21:19 Bisacodyl (Dulcolax Suppository) 10 mg DAILYPRN PRN MD CONSTIPATION 05/18/19 13:45 Diclofenac Epolamine (Flector 1.3%) 1 patch Q12H TOP 05/23/19 09:00 06/08/19 07:30 Docusate Sodium (Colace) 100 mg BID PO 05/18/19 21:00 06/08/19 07:29 Duloxetine HCl (Cymbalta) 30 mg DAILY PO 05/23/19 09:00 05/31/19 12:52 DC 05/31/19 10:08 Duloxetine HCl (Cymbalta) 60 mg DAILY PO 06/01/19 09:00 06/08/19 07:28 Fluoxetine HCl (PROzac) 20 mg DAILY PO 05/19/19 09:00 05/23/19 14:41 DC 05/23/19 09:31 Home Med (Med Rec Complete!) ASDIRECTED XX 05/18/19 16:00 05/18/19 16:00 DC Lidocaine (Lidoderm Patch) 1 patch DAILY TD 05/24/19 09:00 05/30/19 16:28 DC 05/30/19 08:42 Lidocaine (Lidoderm Patch) 2 patch DAILY TD 05/19/19 09:00 05/23/19 14:54 DC 05/23/19 09:31 Lisinopril (Prinivil) 10 mg DAILY PO 05/25/19 09:00 05/28/19 09:33 DC 05/27/19 10:30 Lisinopril (Prinivil) 10 mg QHS PO 05/28/19 21:00 05/30/19 12:36 DC 05/29/19 21:26 Lisinopril (Prinivil) 20 mg QHS PO 05/30/19 21:00 06/07/19 21:20 Magnesium Hydroxide (Milk Of Magnesia) 30 ml DAILYPRN PRN PO CONSTIPATION 05/18/19 13:45 Methylprednisolone (Medrol) 4 mg 6XD PO 05/24/19 12:00 05/24/19 21:01 DC 05/24/19 20:41 Methylprednisolone (Medrol) 4 mg Taper DAILY PO 05/25/19 06:00 05/30/19 05:59 DC 05/29/19 10:20 Metoprolol Succinate (TopROL XL) 25 mg DAILY PO 05/24/19 09:00 05/26/19 10:19 DC 05/26/19 09:44 Metoprolol Succinate (TopROL XL) 25 mg DAILY PO 06/05/19 09:00 06/08/19 07:29 Metoprolol Succinate (TopROL XL) 50 mg DAILY PO 05/27/19 09:00 05/31/19 12:49 DC 05/31/19 10:08 Metoprolol Tartrate (Lopressor) 25 mg BID PO 05/18/19 21:00 05/19/19 09:30 DC 05/19/19 08:22 Metoprolol Tartrate (Lopressor) 25 mg Q8H PO 05/31/19 14:00 06/01/19 12:55 DC Metoprolol Tartrate (Lopressor) 50 mg BID PO 05/19/19 21:00 05/23/19 14:41 DC 05/22/19 20:15 Non-Formulary Medication ( See Comment Field Below ) REMOVE LIDODERM PATCH DAILY@21 XX 05/19/19 21:00 05/30/19 16:29 DC 05/29/19 21:44 Oxymetazoline HCl (Afrin) 2 spray ASDIRECTED PRN NA SEE LABEL COMMENTS 05/24/19 10:00 05/24/19 11:21 DC Pantoprazole Sodium (Protonix) 40 mg DAILY PO 05/19/19 09:00 06/08/19 07:28 Patient Own Medication (Patient'S Own Med) PresverVision 1 gelcap po daily DAILY PO 05/21/19 09:00 9/12/19 07:31 Senna (Senokot) 1 tab QHS PO 05/18/19 21:00 06/07/19 21:20 Trazodone HCl (Desyrel) 25 mg QHSP PRN PO INSOMNIA 05/18/19 13:45 PAULA JOHNSON MD Jun 08, 2019 13:56
--- NOTE | 2019-06-08 13:56 | IPNPDOC ---
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 She realizes she needs more therapy. REVIEW OF SYSTEMS: The following is a completed review of systems and has been reviewed. Review of systems otherwise unremarkable. PAIN: Patient self reports left wrist pain and left knee pain EYES: No recent vision changes EARS, NOSE, & THROAT:+dysphagia CARDIOVASCULAR: Denies chest pain or palpitations PULMONARY: Denies shortness of breath GASTROINTESTINAL: no diarrhea/constipation GENITOURINARY: denies dysuria MUSCULOSKELETAL: left knee and wrist pain NEUROLOGICAL:LUE and LLE paresis SKIN: no rash PSYCHIATRIC: Unremarkable All other review of systems found to be negative. PHYSICAL EXAMINATION: VITAL SIGNS: Please see below. GENERAL: Pleasant and cooperative. No acute distress. HEENT: PERRL. Extraocular movements intact. Clear conjunctiva, no facial droop CARDIOVASCULAR:Irregular rate and rhythm. No murmurs, rubs, or gallops LUNGS: Clear to auscultation bilaterally. No wheezes. No rhonchi ABDOMEN: Soft, nontender, nondistended. Positive bowel sounds. Normal active bowel sounds NEUROLOGICAL: Alert and oriented times three, able to give detailed story Cranial nerves II through XII grossly intact. Sensation grossly intact in all 4 limbs (-) babinki bilat EXTREMITIES: 5\5 strength right upper extremities. 4/5 LUE, 4/5 LLE, 5\5 strength right lower extremity. 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 PLAN: 1. 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 Neuro: s/p right guan radiata/internal capsule stroke with left sided par esis and dysphagia- c/u eliquis and beta-rajesh for Afib management, c/u statin and good BP control for secondary stroke prevention -s/p short course of Prozac for motor recovery, switched to Cymbalta for arthritis to avoid too much serotonin, improving motor function 3. Cardio: pmh Afib and HTN on elquis, c/u lisinopril, amlodipine added, will restart metoprolol in setting of Afib, medicine recs appreciated -HLD- statin 4. Resp: encourage incentive spirometry 5. : monitor PVRS 6. DVT ppx: teds and eliquis 7. GI ppx: protonix 8. Ortho: left knee effusion and left wrist swelling both improving, Xrays both negative for fracture, positive for arthritic changes, counseled patient and family on danger of restarting Diclofenac given recent stroke for its cardi ovascular effects and for GI bleed risk while on ASA and eliquis, c/u Diclofenac patch -s/p Medrol dose pack, increased Cymbalta dosing at 60mg daily, pain and ambulation improving 9. Dispo: pending STR acceptance Allergies Coded Allergies: No Known Allergies (Unverified , 05/14/19) Vital Signs Vital Signs Date Time Temp Pulse Resp B/P (MAP) Pulse Ox O2 Delivery O2 Flow Rate FiO2 06/08/19 07:29 60 137/63 06/08/19 05:24 97.5 18 96 Current Medications Current Medications Current Medications Medications (Trade) Dose Ordered Sig/Didier Route PRN Reason Start Time Stop Time Status Last Admin Dose Admin Acetaminophen (Tylenol Tab) 650 mg Q4HP PRN PO MILD PAIN (PS 1-4) 05/18/19 13:45 05/21/19 13:38 DC Acetaminophen (Tylenol Tab) 1,000 mg TID PO 05/21/19 16:00 06/06/19 14:31 DC 06/06/19 08:55 Acetaminophen (Tylenol Tab) 1,000 mg TID PO 05/21/19 16:00 UNV Acetaminophen (Tylenol Tab) 1,000 mg TID@0800,1600,2100 PO 06/06/19 14:31 06/08/19 07:28 Amlodipine Besylate (Norvasc) 5 mg DAILY PO 06/02/19 09:00 06/04/19 13:07 DC 06/04/19 09:37 Amlodipine Besylate (Norvasc) 10 mg DAILY PO 06/05/19 09:00 06/08/19 07:29 Apixaban (Eliquis) 2.5 mg BID PO 05/18/19 21:00 06/08/19 07:30 Aspirin (Aspirin Chewable) 81 mg DAILY PO 05/19/19 09:00 06/08/19 07:28 Atorvastatin Calcium (Lipitor) 40 mg QHS PO 05/18/19 21:00 06/07/19 21:19 Bisacodyl (Dulcolax Suppository) 10 mg DAILYPRN PRN LA CONSTIPATION 05/18/19 13:45 Diclofenac Epolamine (Flector 1.3%) 1 patch Q12H TOP 05/23/19 09:00 06/08/19 07:30 Docusate Sodium (Colace) 100 mg BID PO 05/18/19 21:00 06/08/19 07:29 Duloxetine HCl (Cymbalta) 30 mg DAILY PO 05/23/19 09:00 05/31/19 12:52 DC 05/31/19 10:08 Duloxetine HCl (Cymbalta) 60 mg DAILY PO 06/01/19 09:00 06/08/19 07:28 Fluoxetine HCl (PROzac) 20 mg DAILY PO 05/19/19 09:00 05/23/19 14:41 DC 05/23/19 09:31 Home Med (Med Rec Complete!) ASDIRECTED XX 05/18/19 16:00 05/18/19 16:00 DC Lidocaine (Lidoderm Patch) 1 patch DAILY TD 05/24/19 09:00 05/30/19 16:28 DC 05/30/19 08:42 Lidocaine (Lidoderm Patch) 2 patch DAILY TD 05/19/19 09:00 05/23/19 14:54 DC 05/23/19 09:31 Lisinopril (Prinivil) 10 mg DAILY PO 05/25/19 09:00 05/28/19 09:33 DC 05/27/19 10:30 Lisinopril (Prinivil) 10 mg QHS PO 05/28/19 21:00 05/30/19 12:36 DC 05/29/19 21:26 Lisinopril (Prinivil) 20 mg QHS PO 05/30/19 21:00 06/07/19 21:20 Magnesium Hydroxide (Milk Of Magnesia) 30 ml DAILYPRN PRN PO CONSTIPATION 05/18/19 13:45 Methylprednisolone (Medrol) 4 mg 6XD PO 05/24/19 12:00 05/24/19 21:01 DC 05/24/19 20:41 Methylprednisolone (Medrol) 4 mg Taper DAILY PO 05/25/19 06:00 05/30/19 05:59 DC 05/29/19 10:20 Metoprolol Succinate (TopROL XL) 25 mg DAILY PO 05/24/19 09:00 05/26/19 10:19 DC 05/26/19 09:44 Metoprolol Succinate (TopROL XL) 25 mg DAILY PO 06/05/19 09:00 06/08/19 07:29 Metoprolol Succinate (TopROL XL) 50 mg DAILY PO 05/27/19 09:00 05/31/19 12:49 DC 05/31/19 10:08 Metoprolol Tartrate (Lopressor) 25 mg BID PO 05/18/19 21:00 05/19/19 09:30 DC 05/19/19 08:22 Metoprolol Tartrate (Lopressor) 25 mg Q8H PO 05/31/19 14:00 06/01/19 12:55 DC Metoprolol Tartrate (Lopressor) 50 mg BID PO 05/19/19 21:00 05/23/19 14:41 DC 05/22/19 20:15 Non-Formulary Medication ( See Comment Field Below ) REMOVE LIDODERM PATCH DAILY@21 XX 05/19/19 21:00 05/30/19 16:29 DC 05/29/19 21:44 Oxymetazoline HCl (Afrin) 2 spray ASDIRECTED PRN NA SEE LABEL COMMENTS 05/24/19 10:00 05/24/19 11:21 DC Pantoprazole Sodium (Protonix) 40 mg DAILY PO 05/19/19 09:00 06/08/19 07:28 Patient Own Medication (Patient'S Own Med) PresverVision 1 gelcap po daily DAILY PO 05/21/19 09:00 06/08/19 07:31 Senna (Senokot) 1 tab QHS PO 05/18/19 21:00 06/07/19 21:20 Trazodone HCl (Desyrel) 25 mg QHSP PRN PO INSOMNIA 05/18/19 13:45 PAULA JOHNSON MD Jun 08, 2019 13:55
[2019-06-08] MEDS ORDERED: ATOR1TAB21 PO (14:36)
[2019-06-08] MEDS ORDERED: ACET-683 PO (14:36)
[2019-06-08] MEDS ORDERED: ASPI81CH8 PO (14:36)
[2019-06-08] MEDS ORDERED: AMLO10TA5 PO (14:36)
[2019-06-08] MEDS ORDERED: CYMB1CAP5 PO (14:36)
[2019-06-08] MEDS ORDERED: METO1TAB32 PO (14:36)
[2019-06-08] MEDS ORDERED: DICL1PAT TOP (14:36)
[2019-06-08] MEDS ORDERED: LISI10TA4 PO (14:36)
[2019-06-08] MEDS ORDERED: ELIQ2.5T PO (14:36)
[2019-06-08] MEDS ORDERED: PANT40TA3 PO (14:36)
[2019-06-08 19:54] VITALS: BP 143/68
[2019-06-08] MEDS: lisinopriL 10 MG TAB PO SCH (21:29)
[2019-06-08] MEDS: SENNA 8.6 MG TAB (SENOKOT) PO SCH (21:30)
[2019-06-08] MEDS: ATORVASTATIN 20 MG TAB PO SCH (21:30)
[2019-06-09 05:48] VITALS: BP 155/80
[2019-06-09] MEDS: PANTOPRAZOLE 40MG TAB (PROTONIX) PO SCH (08:16)
[2019-06-09] MEDS: ACETAMINOPHEN 500 MG TAB PO SCH (08:16)
[2019-06-09] MEDS: APIXABAN 2.5 MG TAB (ELIQUIS) PO SCH (08:16)
[2019-06-09] MEDS: DOCUSATE SODIUM 100 MG CAP PO SCH (08:16)
[2019-06-09 08:17] VITALS: BP 155/80
[2019-06-09] MEDS: amLODIPine 10 MG TAB PO SCH (08:17)
[2019-06-09] MEDS: ASPIRIN 81 MG CHEW TABLET PO SCH (08:17)
[2019-06-09] MEDS: DULoxetine 30 MG CAP (CYMBALTA) PO SCH (08:17)
[2019-06-09] MEDS: METOPROLOL SUCC *XL* 25MG TAB (TopROL *XL*) PO SCH (08:17)
[2019-06-09] MEDS: PRESERVISION PO SCH (08:18)
[2019-06-09] MEDS: DICLOFENAC EPOLAMINE 1.3 % PATCH TOP SCH (08:18)
--- NOTE | 2019-06-20 09:03 | PMRDS ---
DATE OF ADMISSION: 05/18/2019 DATE OF DISCHARGE: 06/09/2019 CHIEF COMPLAINT/DISCHARGE DIAGNOSIS: Stroke. HISTORY OF PRESENT ILLNESS: 88-year-old female with a past medical history of atrial fibrillation (AFib) on Eliquis, status post ablation, hyperlipidemia, hypertension who presented to [facility] ([facility] emergency department (ED) on 05/15/2019 complaining of left-sided weakness, was not a candidate for tissue plasminogen activator (tPA). CTH showed "ventriculomegaly in proportion to atrophy. 8 mm brain cyst or old lacunar infarct in the left basal ganglia. No acute infarct, hemorrhage, mass effect or edema. No extra-axial fluid collection... No cerebellar mass or infarct. Atrophy is fairly symmetric". MRI showed "diffusion restriction in the deep white matter of the right external capsule and guan radiata indicates a recent ischemic infarct." She was evaluated by neurology, who recommended her regimen of Eliquis and statin therapy for elevated LDLs and good BP management for secondary prevention. Echo was done showing "moderately severe concentric left ventricle hypertrophy. Normal regional left ventricular wall motion and wall thickening. Normal LV systolic function. Left ventricular ejection fraction 65% by visual estimate. Unable to adequately assess LV diastolic function in the setting of atrial fibrillation." She was found to have significant dysphagia and difficulty with mobility in activities of daily living (ADL) management when evaluated by therapy and deemed an appropriate candidate for acute rehabilitation unit (ARU) admission on 05/18/2019. PAST MEDICAL HISTORY: As per history of present illness (HPI). HOSPITAL COURSE: The patient was admitted and enrolled in a comprehensive physical therapy (PT), occupational therapy (OT), speech-language pathology program. She received 24-hour nursing supervision and weekly team meetings were held to discuss her progress. The patient was managed on a modified diet for a period of time and then gradually upgraded to thins following modified barium swallow study on 05/24/2019. The patient was treated for left knee osteoarthritis (OA) with topical diclofenac, a Medrol Dosepak and Cymbalta. Her blood pressure was adequately controlled with lisinopril and amlodipine; medicine was consulted to assist in management with this. The patient was deemed medically and functionally stable to be discharged to subacute rehab on 06/09/2019. DISCHARGE MEDICATIONS: As per HPI. FUNCTIONAL HISTORY: Upon discharge, the patient was contact guard assist for functional transfers, contact guard assist ambulating 95 feet with wheelchair and occupational therapy she was standby assist for bathing, upper body dressing, contact guard for lower body dressing and grooming. Thank you for this referral.
== END 2019-06-09 09:20 | DRG 57 ==
LOC: M PM&R 15:15
PROVIDERS: ADMIT Physical Medicine & Rehabilitation; ATTEND Physical Medicine & Rehabilitation
DX: I69.354 Hemiplegia and hemiparesis following cerebral infarction affecting left non-dominant side (principal); I69.391 Dysphagia following cerebral infarction; R26.89 Other abnormalities of gait and mobility; R13.10 Dysphagia, unspecified; I48.91 Unspecified atrial fibrillation; E78.5 Hyperlipidemia, unspecified; I10 Essential (primary) hypertension; Z79.01 Long term (current) use of anticoagulants; Z79.899 Other long term (current) drug therapy; Z79.82 Long term (current) use of aspirin; M25.552 Pain in left hip; F39 Unspecified mood [affective] disorder; M25.562 Pain in left knee; M25.462 Effusion, left knee; M79.89 Other specified soft tissue disorders